=== PATIENT | female | born 1960 | race Caucasian/White ===

== ENCOUNTER 2021-10-08 10:29 | Inpatient (IN) | payer OTHER ==
[2021-10-08 11:06] LABS: Basophils % (A) 1 %; Eosinophils # (A) 0.1 k/uL (0-0.7); Eosinophils % (A) 3 %; HCT 26.9 % (34.0-46.0); HGB 9.7 gm/dL (11.4-16.0); Lymphocytes # (A) 1.9 k/uL (1.0-4.8); Lymphocytes % (A) 50 %; MCH 31.3 pg (25.0-35.0); MCHC 36.1 g/dL (31.0-37.0); MCV 86.6 fL (80.0-100.0); Mean Platelet Volume 7.1; Monocytes # (A) 0.2 k/uL (0-1.0); Monocytes % (A) 6 %; Neutrophils # (A) 1.5 k/uL (1.3-7.7); Neutrophils % (A) 38 %; Platelet Count 208 k/uL (150-450); RDW 12.5 % (11.5-15.5); WBC 3.8 k/uL (3.8-10.6)
--- NOTE | 2021-10-08 11:14 | ED ---
General Adult HPI - General Chief complaint: Nausea/Vomiting/Diarrhea Stated complaint: Nausea/Vomiting Time Seen by Provider: 10/08/21 10:33 Source: patient Mode of arrival: EMS Limitations: no limitations - History of Present Illness Initial comments: Dictation was produced using [employer] dictation software. please excuse any grammatical, word or spelling errors. Chief Complaint: 61-year-old female presents emergency department for nausea and vomiting and abdominal pain. History of Present Illness: Patient reports that her symptoms began yesterday. States that she has pain in her left lower quadrant. States it is nonradiating and severe. Associated with nonbilious nonbloody diarrhea. Denies any recent travel. Patient also feeling nauseated. She has mild rhinorrhea. No cough shortness of breath or respiratory symptoms. Patient has history of hysterectomy. Denies any history of diverticulitis. No complaint of cons titutional symptoms. Shows complains of bilateral lower extremity pain. The ROS documented in this emergency department record has been reviewed and confirmed by me. Those systems with pertinent positive or negative responses have been documented in the HPI. All other systems are other negative and/or noncontributory. PHYSICAL EXAM: General Impression: Alert and oriented x3, not in acute distress HEENT: Normocephalic atraumatic, extra-ocular movements intact, pupils equal and reactive to light bilaterally, mucous membranes moist. Cardiovascular: Heart regular rate and rhythm Chest: Able to complete full sentences, no retractions, no tachypnea Abdomen: abdomen soft, palpatory tenderness in the left lower quadrant, non- distended, no organomegaly Musculoskeletal: Pulses present and equal in all extremities, no peripheral edema Motor: no focal deficits noted Neurological: CN II-XII grossly intact, no focal motor or sensory deficits noted Skin: Intact with no visualized rashes Psych: Normal affect and mood ED course: Patient 61-year-old well-appearing female presents to the emergency department for diarrhea, nausea or quadrant abdominal pain. Vital Signs upon arrival are within acceptable limits. Laboratory evaluation obtained. CBC Bright. Coag panel is negative. Sodium is 128. Elevated renal markers. Urinalysis shows 40 white blood cells. 4 panel PCR is negative. Computed tomography scan abdomen and pelvis shows no acute processes. There is diverticulosis, fecal stasis cholelithiasis. There are no old labs for comparison. Some clear patient has a history of kidney issues. No high-risk features noted. Clinical presentation consistent with viral gastroent eritis. Patient given 1 L of normal saline. EKG interpretation: Ventricular rate 74, sinus rhythm, LA interval 139, Supriya, QTc 431. No LA prolongation, no QTC prolongation, No old EKG for comparison. T-wave inversions in V2 and V3. Overall this EKG is nonspecific. Patient reevaluated bedside. She is having low blood pressure readings. Patient reports that she normally has low blood pressures however not as low as 90 systolic. Patient's likely suffering from some dehydration causing hypotension mildly. Patient is agreeable for admission for IV hydration and medical monitoring. - Related Data Home Medications Medication Instructions Recorded Confirmed Lluvia Root Extract 300 mg PO DAILY 10/08/21 10/08/21 Aspirin EC [Ecotrin Low Dose] 81 mg PO DAILY 10/08/21 10/08/21 Atorvastatin [Lipitor] 40 mg PO DAILY 10/08/21 10/08/21 Ergocalciferol (Vitamin D2) 1,250 mcg PO TU 10/08/21 10/08/21 [Drisdol (50,000 Iu)] Levothyroxine Sodium [Synthroid] 88 mcg PO DAILY 10/08/21 10/08/21 Melatonin 10 mg PO HS 10/08/21 10/08/21 Omeprazole 20 mg PO DAILY 10/08/21 10/08/21 Allergies Allergy/AdvReac Type Severity Reaction Status Date / Time bee venom protein (honey bee) Allergy Unknown Verified 10/08/21 14:28 diphenhydramine Allergy Unknown Verified 10/08/21 14:28 [From Benadryl] orange Allergy Unknown Verified 10/08/21 14:28 Sulfa (Sulfonamide Allergy Unknown Verified 10/08/21 14:28 Antibiotics) Review of Systems ROS Statement: Those systems with pertinent positive or pertinent negative responses have been documented in the HPI. ROS Other: All systems not noted in ROS Statement are negative. Past Medical History Past Medical History: Diabetes Mellitus, GERD/Reflux, Hyperlipidemia, Thyroid Disorder History of Any Multi-Drug Resistant Organisms: None Reported Past Surgical History: Hysterectomy Past Psychological History: No Psychological Hx Reported Smoking Status: Former smoker Past Alcohol Use History: None Reported Past Drug Use History: None Reported General Exam Limitations: no limitations Course Vital Signs 02/26/22 02/26/22 10:34 14:00 Temperature 97.8 F 97.1 F L Pulse Rate 74 90 Respiratory 16 16 Rate Blood Pressure 115/65 90/53 O2 Sat by Pulse 100 99 Oximetry Medical Decision Making - Lab Data Result diagrams: 10/08/21 10:54 10/08/21 10:54 Lab Results 10/08/21 10/08/21 10/08/21 Range/Units 10:54 10:54 10:54 WBC 3.8 (3.8-10.6) k/uL RBC 3.10 L (3.80-5.40) m/uL Hgb 9.7 L (11.4-16.0) gm/dL Hct 26.9 L (34.0-46.0) % MCV 86.6 (80.0-100.0) fL MCH 31.3 (25.0-35.0) pg MCHC 36.1 (31.0-37.0) g/dL RDW 12.5 (11.5-15.5) % Plt Count 208 (150-450) k/uL MPV 7.1 Neutrophils % 38 % Lymphocytes % 50 % Monocytes % 6 % Eosinophils % 3 % Basophils % 1 % Neutrophils # 1.5 (1.3-7.7) k/uL Lymphocytes # 1.9 (1.0-4.8) k/uL Monocytes # 0.2 (0-1.0) k/uL Eosinophils # 0.1 (0-0.7) k/uL Basophils # 0.0 (0-0.2) k/uL PT 11.3 (9.0-12.0) sec INR 1.0 (<1.2) APTT 27.1 (22.0-30.0) sec Sodium 128 L (137-145) mmol/L Potassium 5.2 H (3.5-5.1) mmol/L Chloride 102 (98-107) mmol/L Carbon Dioxide 22 (22-30) mmol/L Anion Gap 4 mmol/L BUN 40 H (7-17) mg/dL Creatinine 1.97 H (0.52-1.04) mg/dL Est GFR (CKD-EPI)AfAm 31 (>60 ml/min/1.73 sqM) Est GFR (CKD-EPI)NonAf 27 (>60 ml/min/1.73 sqM) Glucose 87 (74-99) mg/dL Calcium 9.6 (8.4-10.2) mg/dL Total Bilirubin 0.5 (0.2-1.3) mg/dL AST 21 (14-36) U/L ALT 8 (4-34) U/L Alkaline Phosphatase 53 (38-126) U/L Total Protein 6.3 (6.3-8.2) g/dL Albumin 3.6 (3.5-5.0) g/dL Lipase 123 (23-300) U/L Urine Color Urine Appearance (Clear) Urine pH (5.0-8.0) Ur Specific [place] (1.001-1.035) Urine Protein (Negative) Urine Glucose (UA) (Negative) Urine Ketones (Negative) Urine Blood (Negative) Urine Nitrite (Negative) Urine Bilirubin (Negative) Urine Urobilinogen (<2.0) mg/dL Ur Leukocyte Esterase (Negative) Urine RBC (0-5) /hpf Urine WBC (0-5) /hpf Ur Squamous Epith Cells (0-4) /hpf Urine Bacteria (None) /hpf Hyaline Casts (0-2) /lpf Urine Mucus (None) /hpf Influenza Type A (PCR) (Not Detectd) Influenza Type B (PCR) (Not Detectd) RSV (PCR) (Not Detectd) SARS-CoV-2 (PCR) (Not Detectd) 10/08/21 10/08/21 Range/Units 11:19 11:19 WBC (3.8-10.6) k/uL RBC (3.80-5.40) m/uL Hgb (11.4-16.0) gm/dL Hct (34.0-46.0) % MCV (80.0-100.0) fL MCH (25.0-35.0) pg MCHC (31.0-37.0) g/dL RDW (11.5-15.5) % Plt Count (150-450) k/uL MPV Neutrophils % % Lymphocytes % % Monocytes % % Eosinophils % % Basophils % % Neutrophils # (1.3-7.7) k/uL Lymphocytes # (1.0-4.8) k/uL Monocytes # (0-1.0) k/uL Eosinophils # (0-0.7) k/uL Basophils # (0-0.2) k/uL PT (9.0-12.0) sec INR (<1.2) APTT (22.0-30.0) sec Sodium (137-145) mmol/L Potassium (3.5-5.1) mmol/L Chloride (98-107) mmol/L Carbon Dioxide (22-30) mmol/L Anion Gap mmol/L BUN (7-17) mg/dL Creatinine (0.52-1.04) mg/dL Est GFR (CKD-EPI)AfAm (>60 ml/min/1.73 sqM) Est GFR (CKD-EPI)NonAf (>60 ml/min/1.73 sqM) Glucose (74-99) mg/dL Calcium (8.4-10.2) mg/dL Total Bilirubin (0.2-1.3) mg/dL AST (14-36) U/L ALT (4-34) U/L Alkaline Phosphatase (38-126) U/L Total Protein (6.3-8.2) g/dL Albumin (3.5-5.0) g/dL Lipase (23-300) U/L Urine Color Yellow Urine Appearance Clear (Clear) Urine pH 5.0 (5.0-8.0) Ur Specific [place] 1.011 (1.001-1.035) Urine Protein Negative (Negative) Urine Glucose (UA) Negative (Negative) Urine Ketones Negative (Negative) Urine Blood Negative (Negative) Urine Nitrite Negative (Negative) Urine Bilirubin Negative (Negative) Urine Urobilinogen <2.0 (<2.0) mg/dL Ur Leukocyte Esterase Large H (Negative) Urine RBC 3 (0-5) /hpf Urine WBC 14 H (0-5) /hpf Ur Squamous Epith Cells <1 (0-4) /hpf Urine Bacteria Occasional H (None) /hpf Hyaline Casts 19 H (0-2) /lpf Urine Mucus Rare H (None) /hpf Influenza Type A (PCR) Not Detected (Not Detectd) Influenza Type B (PCR) Not Detected (Not Detectd) RSV (PCR) Not Detected (Not Detectd) SARS-CoV-2 (PCR) Not Detected (Not Detectd) Disposition Clinical Impression: Dehydration, Hyponatremia Disposition: ADMITTED IP TO THIS HOSP Condition: Fair Referrals: Arvin Ashley MD [Primary Care Provider] - 1-2 days
[2021-10-08 11:19] LABS: Partial Thromboplastin Time 27.1 sec (22.0-30.0); Prothrombin Time 11.3 sec (9.0-12.0)
[2021-10-08 11:20] LABS: Albumin 3.6 g/dL (3.5-5.0); Calcium 9.6 mg/dL (8.4-10.2); Potassium 5.2 mmol/L (3.5-5.1); Total Bilirubin 0.5 mg/dL (0.2-1.3); Total Protein 6.3 g/dL (6.3-8.2)
[2021-10-08] MEDS ORDERED: SODIUM CHLORIDE 0.9% 1,000 ML IV STA (11:24)
[2021-10-08 12:12] LABS: Appearance,Urine Clear (Clear); Bacteria,Urine Occasional /hpf; Bilirubin,Urine Negative (Negative); Blood,Urine Negative (Negative); Color,Urine Yellow; Glucose,Urine (UA) Negative (Negative); Hyaline Casts,Urine 19 /lpf (0-2); Ketones,Urine Negative (Negative); Leukocyte Esterase,Urine Large (Negative); Mucus,Urine Rare /hpf; Nitrite,Urine Negative (Negative); Protein,Urine Negative (Negative); RBC,Urine 3 /hpf (0-5); Specific Gravity,Urine 1.011 (1.001-1.035); Squamous Epithelial Cell,Urine <1 /hpf (0-4); Urobilinogen,Urine <2.0 mg/dL (<2.0); WBC,Urine 14 /hpf (0-5)
[2021-10-08 12:29] LABS: Influenza A Not Detected (Not Detectd); Influenza B Not Detected (Not Detectd)
--- NOTE | 2021-10-08 14:06 | CT ---
EXAMINATION TYPE: CT abdomen pelvis wo con DATE OF EXAM: 10/08/2021 COMPARISON: None HISTORY: LLQ abdominal pain CT DLP: 435.1 mGycm Automated exposure control for dose reduction was used. TECHNIQUE: Helical acquisition of images from the lung bases through the pelvis. FINDINGS: Lack of intravenous contrast could compromise sensitivity of the exam. LUNG BASES: No significant abnormality is appreciated. AORTA: Atheromatous changes are present. LIVER/GB: There are dependent stones within the gallbladder. Liver shows a low-attenuation focus whic h statistically is likely to represent cyst but are indeterminate. PANCREAS: No significant abnormality is seen. SPLEEN: No significant abnormality is seen. ADRENALS: No significant abnormality is seen. KIDNEYS: No significant abnormality is seen. REPRODUCTIVE ORGANS: Not seen URINARY BLADDER: No significant abnormality is seen. BOWEL: No significant abnormality is seen. No evident appendicitis. Some scattered diverticular ricketts ges are present. Retained fecal debris present throughout the distribution of the colon FREE AIR: No Free Air is visible. ASCITES: None visible. PELVIC ADENOPATHY: None visualized. RETROPERITONEAL ADENOPATHY: No Retroperitoneal Adenopathy visible. OSSEOUS STRUCTURES: Degenerative disc disease and facet arthropathy noted especially in the lower jenaro mbar spine IMPRESSION: DIVERTICULOSIS. NONCONTRAST EXAM. CORRELATE FOR FECAL STASIS. CHOLELITHIASIS AND FINDINGS IN THE LIVE R DESCRIBED.
[2021-10-08] MEDS ORDERED: NALOXONE 0.4 MG/ML 1 ML VIAL IV PRN (14:54)
[2021-10-08] MEDS ORDERED: cefTRIAXone IN SWFI 1,000 MG/10 ML SYRINGE IVP STA (14:57)
[2021-10-08] MEDS: SODIUM CHLORIDE 0.9% 1,000 ML IV SCH (15:25)
[2021-10-08] MEDS ORDERED: CALCIUM CARBONATE 500 MG CHEWABLE PO PRN (16:36)
[2021-10-08] MEDS ORDERED: LACTULOSE 20 GM/30 ML CUP PO PRN (16:36)
[2021-10-08 16:42] LABS: Glucose,Whole Blood 100 mg/dL (75-99)
--- NOTE | 2021-10-08 17:21 | P.HPIM ---
History of Present Illness H&P Date: 10/08/21 Chief Complaint: Tired This is a pleasant 61-year-old patient, follows with Dr. Ashley. Chronic stable medical conditions include diabetes, GERD, hypertension dyslipidemia, hypothyroid, diet-controlled diabetes. Patient for 2 days having decreased oral intake. Some nausea vomiting. Chills. Some left lower quadrant pain. No change in the urine pattern. Feeling rather weak tired rundown. No chest pain or shortness of breath. Sometimes feeling food getting stuck in the throat. Labs were abnormal in the ER including sodium BUN/creatinine potassium. Review of systems: GEN.: Weak diet decrease appetite EYES: None HEENT: None NECK: None RESPIRATORY: None CARDIOVASCULAR: None GASTROINTESTINAL: As above GENITOURINARY: None MUSCULOSKELETAL: Some joint pains] LYMPHATICS: None HEMATOLOGICAL: None PSYCHIATRY: None NEUROLOGICAL: None Past medical history to include: Diabetes, GERD, hyperlipidemia, hypothyroid, Social history: Physical . Did smoke in the past. No alcohol. Family history: Diabetes and hypertension Physical examination: VITAL SIGNS: 97.7, 84, 84/54, 99% room air GENERAL: BMI 22.7, laying in bed tired to wake. EYES: Pupils equal. Conjunctiva normal. HEENT: External appearance of nose and ears normal, oral cavity grossly normal. NECK: JVD not raised; masses not palpable. HEART: First and second heart sounds are normal; no edema. LUNGS: Respiratory rate normal; clear to auscultation. ABDOMEN: Soft, nontender, liver spleen not palpable, no masses palpable. PSYCH: Alert and oriented x3; mood and affect normal. MUSCULOSKELETAL:No Clubbing/cyanosis;muscles-grossly intact. Evidence of OA NEUROLOGICAL: Cranial nerves grossly intact; no facial asymmetry, power and sensation grossly intact. LYMPHATICS: No lymph nodes palpable in the axilla and neck INVESTIGATIONS, reviewed in the clinical context: White count 3.8 hemoglobin 9.7 platelets 208 sodium 128 potassium 5.2 BUN 40 creatinine 1.97 UA: Positive for leukoesterase, WBC, bacteria Influenza type A, type B, RSV, COVID-19: Not detected EKG tracing personally reviewed by me-sinus rhythm, nonspecific T-wave changes Computed tomography scan of the abdomen: Dependent stones in the gallbladder. Possible cyst in the liver.. Scattered diabetic changes. Fecal retention. Assessment and plan: -Acute UTI with cystitis IV ceftriaxone -Sensation of food getting throat and throat/food pipe. Barium swallow -Chronic idiopathic insomnia Melatonin 10 mg daily at bedtime -Hyperlipidemia Lipitor 40 mg daily -Hypothyroid Synthroid 88 g daily. Check TSH -GERD PPI -Clinically with severe dehydration IV fluids -Acute kidney injury, suspect prerenal Follow labs -Hyperkalemia secondary to acute kidney injury Follow labs -Hyponatremia, hypoosmolar Normal saline Home medications resumed. IV fluids.. Diet. Barium swallow. IV ceftriaxone. Care was discussed with the patient's questions answered. Past Medical History Past Medical History: Diabetes Mellitus, GERD/Reflux, Hyperlipidemia, Thyroid Disorder Additional Past Medical History / Comment(s): diet controlled diabetes, hypo thyroid, food feeling "stuck" in throat History of Any Multi-Drug Resistant Organisms: None Reported Past Surgical History: Hysterectomy Past Psychological History: No Psychological Hx Reported Smoking Status: Former smoker Past Alcohol Use History: None Reported Past Drug Use History: None Reported - Past Family History Mother Family Medical History: Diabetes Mellitus, Hypertension Father Family Medical History: Diabetes Mellitus, Hypertension Medications and Allergies Home Medications Medication Instructions Recorded Confirmed Type Lluvia Root Extract 300 mg PO DAILY 10/08/21 10/08/21 History Aspirin EC [Ecotrin Low Dose] 81 mg PO DAILY 10/08/21 10/08/21 History Atorvastatin [Lipitor] 40 mg PO DAILY 10/08/21 10/08/21 History Ergocalciferol (Vitamin D2) 1,250 mcg PO TU 10/08/21 10/08/21 History [Drisdol (50,000 Iu)] Levothyroxine Sodium [Synthroid] 88 mcg PO DAILY 10/08/21 10/08/21 History Melatonin 10 mg PO HS 10/08/21 10/08/21 History Omeprazole 20 mg PO DAILY 10/08/21 10/08/21 History Allergies Allergy/AdvReac Type Severity Reaction Status Date / Time bee venom protein (honey bee) Allergy Unknown Verified 10/08/21 14:28 diphenhydramine Allergy Unknown Verified 10/08/21 14:28 [From Benadryl] orange Allergy Unknown Verified 10/08/21 14:28 Sulfa (Sulfonamide Allergy Unknown Verified 10/08/21 14:28 Antibiotics) Physical Exam Vitals: Vital Signs Temp Pulse Pulse Resp BP BP Pulse Ox 10/08/21 16:11 97.7 F 84 94/54 99 10/08/21 14:00 97.1 F L 90 16 90/53 99 10/08/21 10:34 97.8 F 74 16 115/65 100 Intake and Output 10/08/21 10/08/21 10/08/21 06:59 14:59 22:59 Other: Weight 59.874 kg 59.874 kg Results CBC & Chem 7: 10/08/21 10:54 10/08/21 10:54 Labs: Abnormal Lab Results - Last 24 Hours (Table) 10/08/21 10/08/21 10/08/21 Range/Units 10:54 10:54 11:19 RBC 3.10 L (3.80-5.40) m/uL Hgb 9.7 L (11.4-16.0) gm/dL Hct 26.9 L (34.0-46.0) % Sodium 128 L (137-145) mmol/L Potassium 5.2 H (3.5-5.1) mmol/L BUN 40 H (7-17) mg/dL Creatinine 1.97 H (0.52-1.04) mg/dL POC Glucose (mg/dL) (75-99) mg/dL Ur Leukocyte Esterase Large H (Negative) Urine WBC 14 H (0-5) /hpf Urine Bacteria Occasional H (None) /hpf Hyaline Casts 19 H (0-2) /lpf Urine Mucus Rare H (None) /hpf 10/08/21 Range/Units 16:41 RBC (3.80-5.40) m/uL Hgb (11.4-16.0) gm/dL Hct (34.0-46.0) % Sodium (137-145) mmol/L Potassium (3.5-5.1) mmol/L BUN (7-17) mg/dL Creatinine (0.52-1.04) mg/dL POC Glucose (mg/dL) 100 H (75-99) mg/dL Ur Leukocyte Esterase (Negative) Urine WBC (0-5) /hpf Urine Bacteria (None) /hpf Hyaline Casts (0-2) /lpf Urine Mucus (None) /hpf Thrombosis Risk Factor Assmnt - Choose All That Apply Any of the Below Risk Factors Present?: Yes Other Risk Factors: Yes Each Risk Factor Represents 2 Points: Age 61-74 years Other congenital or acquired thrombophilia - If yes, enter type in comment: Yes Thrombosis Risk Factor Assessment Total Risk Factor Score: 2 Thrombosis Risk Factor Assessment Level: Low Risk
[2021-10-08] MEDS: INSULIN ASPART (NovoLOG) 100 UNIT/ML VIAL SQ SCH ×2 (18:33→21:31)
[2021-10-08] MEDS: ENOXAPARIN 40 MG/0.4 ML SYRINGE SQ SCH (19:47)
[2021-10-08] MEDS: PANTOPRAZOLE 40 MG TABLET PO SCH (19:47)
[2021-10-08 20:31] LABS: Glucose,Whole Blood 101 mg/dL (75-99)
[2021-10-08] MEDS ORDERED: GABAPENTIN 100 MG CAP PO SCH (21:30)
[2021-10-08] MEDS: MELATONIN 5 MG TABLET PO SCH (21:32)
[2021-10-09] MEDS: ACETAMINOPHEN TAB 325 MG TAB PO PRN (02:53)
[2021-10-09] MEDS ORDERED: traMADol 50 MG TAB PO STA (04:18)
[2021-10-09 04:56] LABS: African American GFR (CKD) 41 (>60 ml/min/1.73 sqM); Anion Gap 5 mmol/L; Blood Urea Nitrogen 28 mg/dL (7-17); Calcium 9.2 mg/dL (8.4-10.2); Carbon Dioxide 19 mmol/L (22-30); Chloride 110 mmol/L (98-107); Glucose 90 mg/dL (74-99); Non-African American GFR(CKD) 35 (>60 ml/min/1.73 sqM); Potassium 5.1 mmol/L (3.5-5.1); Sodium 134 mmol/L (137-145)
[2021-10-09] MEDS: LEVOTHYROXINE 88 MCG TAB PO SCH (05:15)
[2021-10-09 06:45] LABS: Glucose,Whole Blood 84 mg/dL (75-99)
[2021-10-09] MEDS: INSULIN ASPART (NovoLOG) 100 UNIT/ML VIAL SQ SCH ×4 (08:58→21:31)
[2021-10-09] MEDS: ASPIRIN 81 MG PO SCH (09:26)
[2021-10-09] MEDS: ENOXAPARIN 40 MG/0.4 ML SYRINGE SQ SCH (09:26)
[2021-10-09] MEDS: PANTOPRAZOLE 40 MG TABLET PO SCH (09:26)
[2021-10-09] MEDS: SODIUM CHLORIDE 0.9% 1,000 ML IV SCH ×4 (09:28→23:19)
[2021-10-09 11:31] LABS: Glucose,Whole Blood 101 mg/dL (75-99)
[2021-10-09] MEDS: ONDANSETRON 4 MG/2 ML VIAL IVP PRN ×2 (13:00→19:06)
[2021-10-09] MEDS: traMADol 50 MG TAB PO PRN ×2 (14:35→21:31)
[2021-10-09] MEDS ORDERED: traMADol 50 MG TAB PO SCH (16:00)
[2021-10-09 16:28] LABS: Glucose,Whole Blood 144 mg/dL (75-99)
--- NOTE | 2021-10-09 16:29 | XR ---
EXAMINATION TYPE: XR knee complete RT DATE OF EXAM: 10/09/2021 COMPARISON: NONE HISTORY: Pain TECHNIQUE: 3 views FINDINGS: There is no sign of fracture nor dislocation. Joint spaces are fairly normal. There is spur ring on the superior patella. There is no sign of a joint effusion. IMPRESSION: Mild spurring of the patella. No fracture seen.
--- NOTE | 2021-10-09 16:30 | XR ---
EXAMINATION TYPE: XR Hip Complete RT DATE OF EXAM: 10/09/2021 COMPARISON: NONE HISTORY: Pain TECHNIQUE: 2 views FINDINGS: There is no evidence of fracture nor dislocation. Hip joint space is fairly normal. Sacroil iac joint is intact. IMPRESSION: Negative right hip exam. No fracture.
[2021-10-09] MEDS: DICLOFENAC SODIUM GEL 100 GM TUBE TOPICAL SCH ×3 (16:31→21:32)
--- NOTE | 2021-10-09 18:19 | P.PN ---
Progress Note - Text Progress Note Date: 10/09/21 Chief Complaint: Tired This is a pleasant 61-year-old patient, follows with Dr. Ashley. Chronic stable medical conditions include diabetes, GERD, hypertension dyslipidemia, hypothyroid, diet-controlled diabetes. Patient for 2 days having decreased oral intake. Some nausea vomiting. Chills. Some left lower quadrant pain. No change in the urine pattern. Feeling rather weak tired rundown. No chest pain or shortness of breath. Sometimes feeling food getting stuck in the throat. Labs were abnormal in the ER including sodium BUN/creatinine potassium. Admitted with acute UTI with cystitis. Started on ceftriaxone. October 09: Patient complaining of food coming up possible getting stuck. Barium swallow pending. Also completing a pain in the right hip and right knee. X-rays of the joints ordered. Orthopedics consulted. Active Medications Acetaminophen (Acetaminophen Tab 325 Mg Tab) 650 mg PO Q6HR PRN PRN Reason: Fever and/ or Pain Last Admin: 10/09/21 02:53 Dose: 650 mg Documented by: Aspirin (Aspirin 81 Mg) 81 mg PO DAILY [facility] Last Admin: 10/09/21 09:26 Dose: 81 mg Documented by: Calcium Carbonate/Glycine (Calcium Carbonate 500 Mg Chewable) 1,000 mg PO Q4HR PRN PRN Reason: Dyspepsia Diclofenac Sodium (Diclofenac Sodium Gel 100 Gm Tube) 4 gm TOPICAL QID [facility]; Protocol Last Admin: 10/09/21 16:31 Dose: 4 gm Documented by: Enoxaparin Sodium (Enoxaparin 40 Mg/0.4 Ml Syringe) 40 mg SQ DAILY [facility] Last Admin: 10/09/21 09:26 Dose: 40 mg Documented by: Sodium Chloride (Saline 0.9%) 1,000 mls @ 130 mls/hr IV .Q7H42M [facility] Last Admin: 10/09/21 16:33 Dose: Not Given Documented by: Ceftriaxone Sodium 1 gm/ (Sodium Chloride) 50 mls @ 100 mls/hr IVPB Q24HR [facility]; Protocol Last Admin: 10/09/21 09:26 Dose: 100 mls/hr Documented by: Insulin Aspart (Insulin Aspart (Novolog) 100 Unit/Ml Vial) 0 unit SQ ACHS [facility]; Protocol Last Admin: 10/09/21 17:46 Dose: Not Given Documented by: Lactulose (Lactulose 20 Gm/30 Ml Cup) 20 gm PO DAILY PRN PRN Reason: Constipation Levothyroxine Sodium (Levothyroxine 88 Mcg Tab) 88 mcg PO DAILY@0630 [facility] Last Admin: 10/09/21 05:15 Dose: 88 mcg Documented by: Melatonin (Melatonin 5 Mg Tablet) 10 mg PO HS [facility] Last Admin: 10/08/21 21:32 Dose: 10 mg Documented by: Naloxone HCl (Naloxone 0.4 Mg/Ml 1 Ml Vial) 0.2 mg IV Q2M PRN PRN Reason: Opioid Reversal Ondansetron HCl (Ondansetron 4 Mg/2 Ml Vial) 4 mg IVP Q8HR PRN PRN Reason: Nausea And Vomiting Last Admin: 10/09/21 13:00 Dose: 4 mg Documented by: Pantoprazole Sodium (Pantoprazole 40 Mg Tablet) 40 mg PO [id number]-[id number] [facility] Last Admin: 10/09/21 09:26 Dose: 40 mg Documented by: Tramadol HCl (Tramadol 50 Mg Tab) 50 mg PO TID PRN PRN Reason: Pain Last Admin: 10/09/21 14:35 Dose: 50 mg Documented by: Past medical history to include: Diabetes, GERD, hyperlipidemia, hypothyroid, Social history: Lives with . Did smoke in the past. No alcohol. Family history: Diabetes and hypertension Physical examination: VITAL SIGNS: 97.6, 71, 17, 96/50, 99% room air GENERAL: BMI 22.7, laying in bed . EYES: Pupils equal. Conjunctiva normal. HEENT: External appearance of nose and ears normal, oral cavity grossly normal. NECK: JVD not raised; masses not palpable. HEART: First and second heart sounds are normal; no edema. LUNGS: Respiratory rate normal; clear to auscultation. ABDOMEN: Soft, nontender, liver spleen not palpable, no masses palpable. PSYCH: Alert and oriented x3; mood and affect normal. MUSCULOSKELETAL:No Clubbing/cyanosis;muscles-grossly intact. Evidence of OA especially in the knees NEUROLOGICAL: Cranial nerves grossly intact; no facial asymmetry, power and sensation grossly intact. INVESTIGATIONS, reviewed in the clinical context: October 09: Potassium 5.1 BUN 28 creatinine 1.56 White count 3.8 hemoglobin 9.7 platelets 208 sodium 128 potassium 5.2 BUN 40 creatinine 1.97 UA: Positive for leukoesterase, WBC, bacteria Influenza type A, type B, RSV, COVID-19: Not detected EKG tracing personally reviewed by me-sinus rhythm, nonspecific T-wave changes Computed tomography scan of the abdomen: Dependent stones in the gallbladder. Possible cyst in the liver.. Scattered diabetic changes. Fecal retention. Assessment and plan: -Acute UTI with cystitis IV ceftriaxone -Sensation of food getting throat and throat/food pipe. Barium swallow pending -Chronic idiopathic insomnia Melatonin 10 mg daily at bedtime -Hyperlipidemia Lipitor 40 mg daily -Hypothyroid Synthroid 88 g daily. Check TSH -GERD PPI -Clinically with severe dehydration IV fluids -Acute kidney injury, suspect prerenal: Slow to respond Follow labs -Hyperkalemia secondary to acute kidney injury: Better Follow labs -Hyponatremia, hypoosmolar Normal saline Continue IV fluids.. Diet. Barium swallow. IV ceftriaxone. X-ray of the right hip and knee ordered. Orthopedics consulted. Diclofenac gel ordered for the knee.
[2021-10-09 21:21] LABS: Glucose,Whole Blood 91 mg/dL (75-99)
[2021-10-09] MEDS: MELATONIN 5 MG TABLET PO SCH (21:32)
[2021-10-10] MEDS: ACETAMINOPHEN TAB 325 MG TAB PO PRN ×2 (02:29→15:39)
[2021-10-10] MEDS: LEVOTHYROXINE 88 MCG TAB PO SCH (05:53)
[2021-10-10 06:33] LABS: Potassium 4.6 mmol/L (3.5-5.1)
[2021-10-10 06:34] LABS: African American GFR (CKD) 56 (>60 ml/min/1.73 sqM); Anion Gap 3 mmol/L; Blood Urea Nitrogen 18 mg/dL (7-17); Calcium 8.8 mg/dL (8.4-10.2); Carbon Dioxide 20 mmol/L (22-30); Chloride 111 mmol/L (98-107); Glucose 118 mg/dL (74-99); Non-African American GFR(CKD) 48 (>60 ml/min/1.73 sqM); Sodium 134 mmol/L (137-145)
[2021-10-10 07:15] LABS: Glucose,Whole Blood 112 mg/dL (75-99)
[2021-10-10] MEDS: INSULIN ASPART (NovoLOG) 100 UNIT/ML VIAL SQ SCH ×4 (08:21→21:04)
[2021-10-10] MEDS: ONDANSETRON 4 MG/2 ML VIAL IVP PRN (08:37)
[2021-10-10] MEDS: ENOXAPARIN 40 MG/0.4 ML SYRINGE SQ SCH (08:37)
--- NOTE | 2021-10-10 09:03 | P.CNOR ---
History of Present Illness - [facility] Consult date: 10/10/21 History of present illness: The patient is admitted to and orthopaedics for right hip and knee pain. This morning the patient states that the hip and knee pain is chronic and has been present for months. She has been managed by her PCP and has been in therapy. She complains of pain down both of her legs. She denies groin pain. She says it has not gotten worse lately. Past Medical History Past Medical History: Diabetes Mellitus, GERD/Reflux, Hyperlipidemia, Thyroid Disorder Additional Past Medical History / Comment(s): diet controlled diabetes, hypothyroid, food feeling "stuck" in throat History of Any Multi-Drug Resistant Organisms: None Reported Past Surgical History: Hysterectomy Past Psychological History: No Psychological Hx Reported Smoking Status: Former smoker Past Alcohol Use History: None Reported Past Drug Use History: None Reported - Past Family History Mother Family Medical History: Diabetes Mellitus, Hypertension Father Family Medical History: Diabetes Mellitus, Hypertension Medications and Allergies Home Medications Medication Instructions Recorded Confirmed Type Lluvia Root Extract 300 mg PO DAILY 10/08/21 10/08/21 History Aspirin EC [Ecotrin Low Dose] 81 mg PO DAILY 10/08/21 10/08/21 History Atorvastatin [Lipitor] 40 mg PO DAILY 10/08/21 10/08/21 History Ergocalciferol (Vitamin D2) 1,250 mcg PO TU 10/08/21 10/08/21 History [Drisdol (50,000 Iu)] Levothyroxine Sodium [Synthroid] 88 mcg PO DAILY 10/08/21 10/08/21 History Melatonin 10 mg PO HS 10/08/21 10/08/21 History Omeprazole 20 mg PO DAILY 10/08/21 10/08/21 History Allergies Allergy/AdvReac Type Severity Reaction Status Date / Time bee venom protein (honey bee) Allergy Unknown Verified 10/08/21 14:28 diphenhydramine Allergy Unknown Verified 10/08/21 14:28 [From Benadryl] orange Allergy Unknown Verified 10/08/21 14:28 Sulfa (Sulfonamide Allergy Unknown Verified 10/08/21 14:28 Antibiotics) Physical Examination The patient is sitting up in bed. She is alert and able to answer questions. She demonstrates non-labored breathing with symmetric chest expansion. Her abdomen is non obese. She is sitting in bed with both hips flexed. She has NO PAIN with PROM of both hips. Her thighs are both soft. She has mild tenderness over the anterior aspect of both knees. She has minimal pain with PROM of both knees. Results Xrays of the right hip and right knee show no acute fractures and no degenerative changes. - Labs Labs: Abnormal Lab Results - Last 24 Hours (Table) 10/09/21 10/09/21 10/10/21 Range/Units 11:30 16:26 05:36 Sodium 134 L (137-145) mmol/L Chloride 111 H (98-107) mmol/L Carbon Dioxide 20 L (22-30) mmol/L BUN 18 H (7-17) mg/dL Creatinine 1.20 H (0.52-1.04) mg/dL Glucose 118 H (74-99) mg/dL POC Glucose (mg/dL) 101 H 144 H (75-99) mg/dL 10/10/21 Range/Units 07:14 Sodium (137-145) mmol/L Chloride (98-107) mmol/L Carbon Dioxide (22-30) mmol/L BUN (7-17) mg/dL Creatinine (0.52-1.04) mg/dL Glucose (74-99) mg/dL POC Glucose (mg/dL) 112 H (75-99) mg/dL H & H 10/08/21 Range/Units 10:54 Hgb 9.7 L (11.4-16.0) gm/dL Hct 26.9 L (34.0-46.0) % Coagulation 10/08/21 Range/Units 10:54 INR 1.0 (<1.2) Result Diagrams: 10/08/21 10:54 10/10/21 05:36 Assessment and Plan Assessment: Bilateral hip, knee and leg pain Plan: I would recommend non-operative treatment as this seems to be a chronic problem, her x-rays are normal and she has a relatively benign exam. I'd suggest therapy and follow-up in the office as an outpatient if she has continued problems. If she continues to have pain in her legs as an inpatient could also consider a spine consultation for evaluation of lumbar spine pathology given her normal xrays and benign hip and knee exam.
[2021-10-10 12:37] LABS: Glucose,Whole Blood 92 mg/dL (75-99)
[2021-10-10] MEDS: ASPIRIN 81 MG PO SCH (13:59)
[2021-10-10] MEDS: PANTOPRAZOLE 40 MG TABLET PO SCH (13:59)
--- NOTE | 2021-10-10 15:21 | FL ---
EXAMINATION TYPE: FL barium swallow DATE OF EXAM: 10/10/2021 COMPARISON: None HISTORY: Food getting stuck in throat swallowing nausea TECHNIQUE: Single contrast technique was utilized to evaluate the esophagus and proximal stomach. FINDINGS: Gastroesophageal junction opens normal caliber. The stomach fills normally with single cont rast. Mild gastric fold hypertrophy may be present. Small self reducing sliding type hiatal hernia is present. Couple of tertiary contractions may be present. Note is made of delayed excretion of contrast through the pyloric channel. Patient had nausea during the examination. Patient condition was weak and positioning was difficult. Fluoroscopy time: 1 minute 21 seconds. Images: 21 IMPRESSION: 1. Presbyesophagus. 2. Small sliding-type hiatal hernia. 3. Delayed excretion through the pyloric channel. Consider pyloric stenosis.
--- NOTE | 2021-10-10 16:29 | P.PN ---
Progress Note - Text Progress Note Date: 10/10/21 Chief Complaint: Tired This is a pleasant 61-year-old patient, follows with Dr. Ashley. Chronic stable medical conditions include diabetes, GERD, hypertension dyslipidemia, hypothyroid, diet-controlled diabetes. Patient for 2 days having decreased oral intake. Some nausea vomiting. Chills. Some left lower quadrant pain. No change in the urine pattern. Feeling rather weak tired rundown. No chest pain or shortness of breath. Sometimes feeling food getting stuck in the throat. Labs were abnormal in the ER including sodium BUN/creatinine potassium. Admitted with acute UTI with cystitis. Started on ceftriaxone. October 09: Patient complaining of food coming up possible getting stuck. Barium swallow pending. Also completing a pain in the right hip and right knee. X-rays of the joints ordered. Orthopedics consulted. 28: Saw the patient earlier today. Was pending barium swallow. Seen by orthopedics. No further intervention currently. Barium swallow: Presbyesophagus, delayed excretion through the pyloric channel. GI consulted Active Medications Acetaminophen (Acetaminophen Tab 325 Mg Tab) 650 mg PO Q6HR PRN PRN Reason: Fever and/ or Pain Last Admin: 10/10/21 15:39 Dose: 650 mg Documented by: Aspirin (Aspirin 81 Mg) 81 mg PO DAILY [facility] Last Admin: 10/10/21 13:59 Dose: Not Given Documented by: Calcium Carbonate/Glycine (Calcium Carbonate 500 Mg Chewable) 1,000 mg PO Q4HR PRN PRN Reason: Dyspepsia Diclofenac Sodium (Diclofenac Sodium Gel 100 Gm Tube) 4 gm TOPICAL QID [facility]; Protocol Last Admin: 10/09/21 21:32 Dose: 4 gm Documented by: Enoxaparin Sodium (Enoxaparin 40 Mg/0.4 Ml Syringe) 40 mg SQ DAILY [facility] Last Admin: 10/10/21 08:37 Dose: 40 mg Documented by: Ceftriaxone Sodium 1 gm/ (Sodium Chloride) 50 mls @ 100 mls/hr IVPB Q24HR [facility]; Protocol Last Admin: 10/10/21 08:37 Dose: 100 mls/hr Documented by: Dextrose/Sodium Chloride (Dextrose 5%-Ns Iv Soln) 1,000 mls @ 100 mls/hr IV .Q10H [facility] Insulin Aspart (Insulin Aspart (Novolog) 100 Unit/Ml Vial) 0 unit SQ ACHS [facility]; Protocol Last Admin: 10/10/21 14:00 Dose: Not Given Documented by: Lactulose (Lactulose 20 Gm/30 Ml Cup) 20 gm PO DAILY PRN PRN Reason: Constipation Levothyroxine Sodium (Levothyroxine 88 Mcg Tab) 88 mcg PO DAILY@0630 [facility] Last Admin: 10/10/21 05:53 Dose: 88 mcg Documented by: Melatonin (Melatonin 5 Mg Tablet) 10 mg PO HS [facility] Last Admin: 10/09/21 21:32 Dose: 10 mg Documented by: Naloxone HCl (Naloxone 0.4 Mg/Ml 1 Ml Vial) 0.2 mg IV Q2M PRN PRN Reason: Opioid Reversal Ondansetron HCl (Ondansetron 4 Mg/2 Ml Vial) 4 mg IVP Q8HR PRN PRN Reason: Nausea And Vomiting Last Admin: 10/10/21 08:37 Dose: 4 mg Documented by: Pantoprazole Sodium (Pantoprazole 40 Mg Tablet) 40 mg PO -BRKFST [facility] Last Admin: 10/10/21 13:59 Dose: Not Given Documented by: Tramadol HCl (Tramadol 50 Mg Tab) 50 mg PO TID PRN PRN Reason: Pain Last Admin: 10/09/21 21:31 Dose: 50 mg Documented by: Past medical history to include: Diabetes, GERD, hyperlipidemia, hypothyroid, Social history: Lives with . Did smoke in the past. No alcohol. Family history: Diabetes and hypertension Physical examination: VITAL SIGNS: 97.7, 81, 16, 101/63, 96% room air GENERAL: Tired awake laying in bed . EYES: Pupils equal. Conjunctiva normal. HEENT: External appearance of nose and ears normal, oral cavity grossly normal. NECK: JVD not raised; masses not palpable. HEART: First and second heart sounds are normal; no edema. LUNGS: Respiratory rate normal; clear to auscultation. ABDOMEN: Soft, nontender, liver spleen not palpable, no masses palpable. PSYCH: Alert and oriented x3; mood and affect normal. MUSCULOSKELETAL:No Clubbing/cyanosis;muscles-grossly intact. Evidence of OA especially in the knees INVESTIGATIONS, reviewed in the clinical context: October 10: Potassium 4.6 BUN 18 creatinine 1.20 bicarb 20 Barium swallow: Presbyesophagus. Question pyloric stenosis October 09: Potassium 5.1 BUN 28 creatinine 1.56 White count 3.8 hemoglobin 9.7 platelets 208 sodium 128 potassium 5.2 BUN 40 creatinine 1.97 UA: Positive for leukoesterase, WBC, bacteria Influenza type A, type B, RSV, COVID-19: Not detected EKG tracing personally reviewed by me-sinus rhythm, nonspecific T-wave changes Computed tomography scan of the abdomen: Dependent stones in the gallbladder. Possible cyst in the liver.. Scattered diabetic changes. Fecal retention. Assessment and plan: -Acute UTI with cystitis IV ceftriaxone -prebyesophagus.. GI consult -Questionable gastric outlet/pyloric stenosis GI consulted -Chronic idiopathic insomnia Melatonin 10 mg daily at bedtime -Hyperlipidemia Lipitor 40 mg daily -Hypothyroid Synthroid 88 g daily. Check TSH -GERD PPI -Clinically with severe dehydration IV fluids -Acute kidney injury, suspect prerenal: Slow to respond Follow labs -Hyperkalemia secondary to acute kidney injury: Better Follow labs -Hyponatremia, hypoosmolar Normal saline Continue IV fluids.. Diet resume. GI consulted. Changed to by mouth Keflex.
[2021-10-10 16:43] LABS: Glucose,Whole Blood 84 mg/dL (75-99)
[2021-10-10] MEDS: DICLOFENAC SODIUM GEL 100 GM TUBE TOPICAL SCH ×4 (16:51→21:04)
[2021-10-10] MEDS: DEXTROSE 5%-0.9% NACL 1,000 ML IV SCH ×2 (17:02→20:01)
[2021-10-10] MEDS: MELATONIN 5 MG TABLET PO SCH (19:58)
[2021-10-10] MEDS: traMADol 50 MG TAB PO PRN (19:58)
[2021-10-10] MEDS: SODIUM CHLORIDE 0.9% 1,000 ML IV SCH (20:03)
[2021-10-10 20:11] LABS: Glucose,Whole Blood 87 mg/dL (75-99)
[2021-10-11] MEDS: traMADol 50 MG TAB PO PRN ×2 (04:14→22:21)
[2021-10-11] MEDS: CEPHALEXIN 500 MG CAP PO SCH ×4 (04:14→22:21)
[2021-10-11] MEDS: ONDANSETRON 4 MG/2 ML VIAL IVP PRN ×2 (04:16→12:17)
[2021-10-11] MEDS: INSULIN ASPART (NovoLOG) 100 UNIT/ML VIAL SQ SCH ×4 (07:21→20:35)
[2021-10-11 07:22] LABS: Glucose,Whole Blood 97 mg/dL (75-99)
[2021-10-11] MEDS: DICLOFENAC SODIUM GEL 100 GM TUBE TOPICAL SCH ×4 (07:22→22:25)
[2021-10-11] MEDS: ENOXAPARIN 40 MG/0.4 ML SYRINGE SQ SCH (07:23)
[2021-10-11] MEDS: LEVOTHYROXINE 88 MCG TAB PO SCH (07:28)
[2021-10-11] MEDS: PANTOPRAZOLE 40 MG TABLET PO SCH (07:28)
[2021-10-11] MEDS: ASPIRIN 81 MG PO SCH (07:29)
[2021-10-11] MEDS ORDERED: LACTULOSE 20 GM/30 ML CUP PO ONE (10:26)
[2021-10-11 11:58] LABS: Glucose,Whole Blood 101 mg/dL (75-99)
[2021-10-11] MEDS: DEXTROSE 5%-0.9% NACL 1,000 ML IV SCH ×2 (12:18→17:22)
--- NOTE | 2021-10-11 15:04 | P.CONS ---
History of Present Illness - Reason for Consult Consult date: 10/11/21 Dysphagia Requesting physician: Ky Rivera - Chief Complaint Leg pain - History of Present Illness This is a 61-year-old female who presented to the emergency department with complaints of leg pain, weakness, and difficulty swallowing. Patient states she's had nausea and vomiting 1 month after eating. States she's had a 30 pound weight loss. She has a history of acid reflux, diabetes, hyperlipidemia and thyroid disorder. She underwent a CT of the abdomen and pelvis which showed diverticulosis. Noncontrast exam. Correlate for fecal stasis. Cholelithiasis. Liver shows low-attenuation focus which statistically is likely to represent cysts but are indeterminate. She also underwent a barium swallow that showed presbyesophagus, small sliding type hiatal hernia and delayed excretion through the pyloric channel, consider pyloric stenosis. Patient states every time she eats it feels like something gets stuck and she vomits it up. She says it's only with solids. She states she is able to take down liquids without any difficulty. She denies any hematemesis. No history of previous EGD. No history of peptic ulcer disease. Review of Systems REVIEW OF SYSTEMS: CARDIOPULMONARY: No chest pain or shortness of breath. Gastrointestinal: No abdominal pain. Difficulty with swallowing, unable to swallow solid foods. Vomiting after eating solid foods. Able to tolerate clear liquid. No hematemesis or coffee-ground emesis. No rectal bleeding, or melena. GENITOURINARY: No dysuria or hematuria. MUSCULOSKELETAL: Reports normal range of motion., Joint pain. SKIN: No rashes. No jaundice. ENDOCRINE: No chills, fevers. No excessive weight gain or loss. No polydipsia or polyuria. PSYCHIATRIC: Unremarkable. NEUROLOGY: No change in mental status. Denies dizziness, headache. ENT: Vision unremarkable. CONSTITUTIONAL: Reported 30 pound weight loss over the last 1 month duration. fever, chills, night sweats. Past Medical History Past Medical History: Diabetes Mellitus, GERD/Reflux, Hyperlipidemia, Thyroid Disorder Additional Past Medical History / Comment(s): diet controlled diabetes, hypothyroid, food feeling "stuck" in throat History of Any Multi-Drug Resistant Organisms: None Reported Past Surgical History: Hysterectomy Past Psychological History: No Psychological Hx Reported Smoking Status: Former smoker Past Alcohol Use History: None Reported Past Drug Use History: None Reported - Past Family History Mother Family Medical History: Diabetes Mellitus, Hypertension Father Family Medical History: Diabetes Mellitus, Hypertension Medications and Allergies Home Medications Medication Instructions Recorded Confirmed Type Lluvia Root Extract 300 mg PO DAILY 10/08/21 10/08/21 History Aspirin EC [Ecotrin Low Dose] 81 mg PO DAILY 10/08/21 10/08/21 History Atorvastatin [Lipitor] 40 mg PO DAILY 10/08/21 10/08/21 History Ergocalciferol (Vitamin D2) 1,250 mcg PO TU 10/08/21 10/08/21 History [Drisdol (50,000 Iu)] Levothyroxine Sodium [Synthroid] 88 mcg PO DAILY 10/08/21 10/08/21 History Melatonin 10 mg PO HS 10/08/21 10/08/21 History Omeprazole 20 mg PO DAILY 10/08/21 10/08/21 History Allergies Allergy/AdvReac Type Severity Reaction Status Date / Time bee venom protein (honey bee) Allergy Unknown Verified 10/08/21 14:28 diphenhydramine Allergy Unknown Verified 10/08/21 14:28 [From Benadryl] orange Allergy Unknown Verified 10/08/21 14:28 Sulfa (Sulfonamide Allergy Unknown Verified 10/08/21 14:28 Antibiotics) Physical Exam Vitals: Vital Signs Temp Pulse Resp BP Pulse Ox 10/11/21 08:00 99.0 F 85 14 107/64 91 L 10/11/21 02:00 97.6 F 104 H 19 133/73 93 L 10/10/21 20:00 97.8 F 83 18 105/66 97 10/10/21 14:00 97.7 F 81 16 101/63 96 Intake and Output 10/10/21 10/11/21 10/11/21 22:59 06:59 14:59 Intake Total 650 Balance 650 Intake: Intake, IV Titration 650 Amount Dextrose 5%-0.9% NaCl 1, 600 000 ml @ 100 mls/hr IV . Q10H [facility] Rx#:[id number] cefTRIAXone 1 gm In 50 Sodium Chloride 0.9% 50 ml @ 100 mls/hr IVPB Q24HR [facility] Rx#:[id number] Other: # Voids 2 General appearance: The patient is alert, oriented, appears in no acute distress. HET: Head is normocephalic and atraumatic. Conjunctiva pink. Sclera anicteric. Neck: Supple without lymphadenopathy. Trachea midline. Heart: S1 S2. Regular rate and rhythm. Lungs: Clear to auscultation. Abdomen: Soft, nontender, nondistended with bowel sounds. No guarding or rigidity. Skin: No rashes. No jaundice. Extremities: Normal skin color and turgor. No pedal edema. Neurological: No focal deficits. Alert and oriented x3. Results CBC & Chem 7: 10/08/21 10:54 10/10/21 05:36 Comments: CT of the abdomen and pelvis which showed diverticulosis. Noncontrast exam. Correlate for fecal stasis. Cholelithiasis. Liver shows low-attenuation focus which statistically is likely to represent cysts but are indeterminate. barium swallow that showed presbyesophagus, small sliding type hiatal hernia and delayed excretion through the pyloric channel, consider pyloric stenosis. Assessment and Plan (1) Dysphagia Narrative/Plan: 61-year-old female who presented to the emergency department with complaints of weakness, lower extremity pain as well as difficulty with swallowing. States for last 1 month's duration she's been having difficulty swallowing solids. She is able to tolerate clear liquids. She does have a history of GERD, taking omeprazole. No previous history of peptic ulcer disease. She had a CT of the abdomen and pelvis that was unremarkable. She had a barium swallow that showed presbyesophagus and possible pyloric stenosis. As well as a small sliding hiatal hernia. Patient states when she solids she vomits it right back up. Feels like it goes down and then gets stuck in the center of her chest. She is able to hold liquids. Denies any hematemesis or coffee-ground emesis. No previous EGD. No history of peptic ulcer disease. Denies any NSAID use. We'll proceed with upper endoscopy tomorrow Current Visit: Yes Status: Acute Code(s): R13.10 - DYSPHAGIA, UNSPECIFIED SNOMED Code(s): 69788432 Plan: 1. Continue symptomatic and supportive care 2. Protonix 40 mg daily 3. Hold Lovenox in the morning 4. Dysphagia pured diet, nothing by mouth after midnight 5. Will proceed with EGD tomorrow. Procedure discussed with patient including risks and benefits, patient is willing to proceed. Thank you for this consultation, we will continue to follow. Dr. Fede Ortiz I agree with the dictator's note, documented as a scribe by Brandy Adair.
[2021-10-11 16:47] LABS: Glucose,Whole Blood 88 mg/dL (75-99)
[2021-10-11 20:35] LABS: Glucose,Whole Blood 114 mg/dL (75-99)
[2021-10-11] MEDS: MELATONIN 5 MG TABLET PO SCH (22:21)
--- NOTE | 2021-10-11 23:20 | P.PN ---
Progress Note - Text Progress Note Date: 10/11/21 Chief Complaint: Tired This is a pleasant 61-year-old patient, follows with Dr. Ashley. Chronic stable medical conditions include diabetes, GERD, hypertension dyslipidemia, hypothyroid, diet-controlled diabetes. Patient for 2 days having decreased oral intake. Some nausea vomiting. Chills. Some left lower quadrant pain. No change in the urine pattern. Feeling rather weak tired rundown. No chest pain or shortness of breath. Sometimes feeling food getting stuck in the throat. Labs were abnormal in the ER including sodium BUN/creatinine potassium. Admitted with acute UTI with cystitis. Started on ceftriaxone. October 09: Patient complaining of food coming up possible getting stuck. Barium swallow pending. Also completing a pain in the right hip and right knee. X-rays of the joints ordered. Orthopedics consulted. October 10: Saw the patient earlier today. Was pending barium swallow. Seen by orthopedics. No further intervention currently. Barium swallow: Presbyesophagus, delayed excretion through the pyloric channel. GI consulted October 11: Patient barely able to eat. Seen by GI earlier today. For EGD tomorrow. Discussed with patient. Active Medications Acetaminophen (Acetaminophen Tab 325 Mg Tab) 650 mg PO Q6HR PRN PRN Reason: Fever and/ or Pain Last Admin: 10/10/21 15:39 Dose: 650 mg Documented by: Aspirin (Aspirin 81 Mg) 81 mg PO DAILY [facility] Last Admin: 10/11/21 07:29 Dose: Not Given Documented by: Calcium Carbonate/Glycine (Calcium Carbonate 500 Mg Chewable) 1,000 mg PO Q4HR PRN PRN Reason: Dyspepsia Cephalexin (Cephalexin 500 Mg Cap) 500 mg PO QID [facility]; Protocol Last Admin: 10/11/21 22:21 Dose: 500 mg Documented by: Diclofenac Sodium (Diclofenac Sodium Gel 100 Gm Tube) 4 gm TOPICAL QID [facility]; Protocol Last Admin: 10/11/21 22:25 Dose: 4 gm Documented by: Enoxaparin Sodium (Enoxaparin 40 Mg/0.4 Ml Syringe) 40 mg SQ DAILY [facility] Last Admin: 10/11/21 07:23 Dose: 40 mg Documented by: Dextrose/Sodium Chloride (Dextrose 5%-Ns Iv Soln) 1,000 mls @ 100 mls/hr IV .Q10H [facility] Last Admin: 10/11/21 17:22 Dose: Not Given Documented by: Insulin Aspart (Insulin Aspart (Novolog) 100 Unit/Ml Vial) 0 unit SQ [facility]; Protocol Last Admin: 10/11/21 20:35 Dose: Not Given Documented by: Lactulose (Lactulose 20 Gm/30 Ml Cup) 20 gm PO DAILY PRN PRN Reason: Constipation Levothyroxine Sodium (Levothyroxine 88 Mcg Tab) 88 mcg PO DAILY@0630 [facility] Last Admin: 10/11/21 07:28 Dose: Not Given Documented by: Melatonin (Melatonin 5 Mg Tablet) 10 mg PO HS [facility] Last Admin: 10/11/21 22:21 Dose: 10 mg Documented by: Naloxone HCl (Naloxone 0.4 Mg/Ml 1 Ml Vial) 0.2 mg IV Q2M PRN PRN Reason: Opioid Reversal Ondansetron HCl (Ondansetron 4 Mg/2 Ml Vial) 4 mg IVP Q8HR PRN PRN Reason: Nausea And Vomiting Last Admin: 10/11/21 12:17 Dose: 4 mg Documented by: Pantoprazole Sodium (Pantoprazole 40 Mg Tablet) 40 mg PO AC-BRKFST [facility] Last Admin: 10/11/21 07:28 Dose: Not Given Documented by: Polyethylene Glycol (Polyethylene Glycol 3350 17 Gm Powd.Pack) 17 gm PO DAILY [facility] Tramadol HCl (Tramadol 50 Mg Tab) 50 mg PO TID PRN PRN Reason: Pain Last Admin: 10/11/21 22:21 Dose: 50 mg Documented by: Past medical history to include: Diabetes, GERD, hyperlipidemia, hypothyroid, Social history: Lives with . Did smoke in the past. No alcohol. Family history: Diabetes and hypertension Physical examination: VITAL SIGNS: 98.7, 83, 17, 92/58, 91% room air GENERAL: Tired awake laying in bed . EYES: Pupils equal. Conjunctiva normal. HEENT: External appearance of nose and ears normal, oral cavity grossly normal. NECK: JVD not raised; masses not palpable. HEART: First and second heart sounds are normal; no edema. LUNGS: Respiratory rate normal; clear to auscultation. ABDOMEN: Soft, nontender, liver spleen not palpable, no masses palpable. PSYCH: Alert and oriented x3; mood and affect normal. MUSCULOSKELETAL:No Clubbing/cyanosis;muscles-grossly intact. Evidence of OA especially in the knees INVESTIGATIONS, reviewed in the clinical context: October 10: Potassium 4.6 BUN 18 creatinine 1.20 bicarb 20 Barium swallow: Presbyesophagus. Question pyloric stenosis October 09: Potassium 5.1 BUN 28 creatinine 1.56 White count 3.8 hemoglobin 9.7 platelets 208 sodium 128 potassium 5.2 BUN 40 creatinine 1.97 UA: Positive for leukoesterase, WBC, bacteria Influenza type A, type B, RSV, COVID-19: Not detected EKG tracing personally reviewed by me-sinus rhythm, nonspecific T-wave changes Computed tomography scan of the abdomen: Dependent stones in the gallbladder. Possible cyst in the liver.. Scattered diabetic changes. Fecal retention. Assessment and plan: -Acute UTI with cystitis By mouth Keflex -prebyesophagus.. GI consult -Persistent postprandial vomiting: Questionable gastric outlet/pyloric stenosis: Slow to respond GI consulted, for EGD -Chronic idiopathic insomnia Melatonin 10 mg daily at bedtime -Hyperlipidemia Lipitor 40 mg daily -Hypothyroid Synthroid 88 g daily. Check TSH -GERD PPI -Clinically with severe dehydration IV fluids -Acute kidney injury, suspect prerenal: Slow to respond Follow labs -Hyperkalemia secondary to acute kidney injury: Better Follow labs -Hyponatremia, hypoosmolar Normal saline Continue IV fluids.. Patient for EGD tomorrow. Discussed with patient.
[2021-10-12] MEDS: DEXTROSE 5%-0.9% NACL 1,000 ML IV SCH ×3 (02:45→21:00)
[2021-10-12] MEDS: LEVOTHYROXINE 88 MCG TAB PO SCH (06:34)
[2021-10-12 07:05] LABS: Glucose,Whole Blood 110 mg/dL (75-99)
[2021-10-12] MEDS: INSULIN ASPART (NovoLOG) 100 UNIT/ML VIAL SQ SCH ×4 (07:14→22:39)
[2021-10-12] MEDS: ASPIRIN 81 MG PO SCH (08:03)
[2021-10-12] MEDS: CEPHALEXIN 500 MG CAP PO SCH ×4 (08:03→20:49)
[2021-10-12] MEDS: PANTOPRAZOLE 40 MG TABLET PO SCH (08:03)
[2021-10-12] MEDS: polyethylene glycoL 3350 17 GM POWD.PACK PO SCH (08:05)
[2021-10-12] MEDS: ENOXAPARIN 40 MG/0.4 ML SYRINGE SQ SCH (08:05)
[2021-10-12] MEDS: DICLOFENAC SODIUM GEL 100 GM TUBE TOPICAL SCH ×4 (09:01→21:00)
[2021-10-12 11:41] LABS: Glucose,Whole Blood 93 mg/dL (75-99)
[2021-10-12] MEDS ORDERED: PROPOFOL 10 MG/ML 20 ML VIAL IV ONE (12:55)
[2021-10-12] MEDS ORDERED: IV FLUID CONTINUATION 1,000 ML IV ONE ×2 (12:57)
--- NOTE | 2021-10-12 13:10 | P.PCN ---
Date of Procedure: 10/12/21 Procedure(s) Performed: tBRIEF HISTORY: Patient is a 61-year-old, pleasant, white female admitted hospital with weakness dysphagia to solids for the last several months duration. She does complain of occasional nausea vomiting. She lost 30 pounds in the last [address] of abdomen and pelvis was unremarkable. She had a barium esophagogram done yesterday that showed evidence of presbyesophagus and possible pyloric stenosis. She is hence scheduled for an upper endoscopy to evaluate further.. PROCEDURE PERFORMED: Esophagogastroduodenoscopy with biopsy. PREOPERATIVE DIAGNOSIS: Dysphagia/progressive weight loss of 30 pounds. IV sedation per anesthesia. PROCEDURE: After informed consent was obtained, the patient was brought into the endoscopy unit. IV sedation was administered by Anesthesia under continuous monitoring. Initially the Olympus GIF-140 video endoscope was inserted into the mouth. Esophagus intubated without any difficulty. It was gradually advanced into the stomach and duodenum and carefully examined. The bulb and the second part of the duodenum appeared normal. Acetaminophen from the duodenum to rule out celiac disease. The scope at this time was withdrawn to the stomach, adequately insufflated with air, and upon careful examination, mucosa of the antrum, body, cardia and the fundus appeared normal. The pylorus was patent. No evidence of pyloric stenosis. The scope was then withdrawn into the esophagus. Small HH noted. The GE junction was located at 39 cm from the incisors. The esophagus appeared normal. There were no erosions or ulcerations seen , biopsies were done from the distal esophagus and the patient tolerated the procedure well. IMPRESSION: 1. No evidence of pyloric stenosis. 2. Small hiatal hernia but no evidence of esophagitis or esophageal stricture. 3. Duodenitis RECOMMENDATIONS: The findings of this examination were discussed with the patient . Diet will be advanced as tolerated. Continue Protonix 40 mg daily..
--- NOTE | 2021-10-12 15:24 | P.PN ---
Progress Note - Text Progress Note Date: 10/12/21 Chief Complaint: Tired This is a pleasant 61-year-old patient, follows with Dr. Ashley. Chronic stable medical conditions include diabetes, GERD, hypertension dyslipidemia, hypothyroid, diet-controlled diabetes. Patient for 2 days having decreased oral intake. Some nausea vomiting. Chills. Some left lower quadrant pain. No change in the urine pattern. Feeling rather weak tired rundown. No chest pain or shortness of breath. Sometimes feeling food getting stuck in the throat. Labs were abnormal in the ER including sodium BUN/creatinine potassium. Admitted with acute UTI with cystitis. Started on ceftriaxone. October 09: Patient complaining of food coming up possible getting stuck. Barium swallow pending. Also completing a pain in the right hip and right knee. X-rays of the joints ordered. Orthopedics consulted. October 10: Saw the patient earlier today. Was pending barium swallow. Seen by orthopedics. No further intervention currently. Barium swallow: Presbyesophagus, delayed excretion through the pyloric channel. GI consulted October 11: Patient barely able to eat. Seen by GI earlier today. For EGD tomorrow. Discussed with patient. October 12: Saw the patient this morning. Pending EGD. Later EGD showed duodenitis. No pyloric stenosis. Initiate diet. PPI Active Medications Acetaminophen (Acetaminophen Tab 325 Mg Tab) 650 mg PO Q6HR PRN PRN Reason: Fever and/ or Pain Last Admin: 10/10/21 15:39 Dose: 650 mg Documented by: Aspirin (Aspirin 81 Mg) 81 mg PO DAILY [facility] Last Admin: 10/12/21 08:03 Dose: 81 mg Documented by: Calcium Carbonate/Glycine (Calcium Carbonate 500 Mg Chewable) 1,000 mg PO Q4HR PRN PRN Reason: Dyspepsia Cephalexin (Cephalexin 500 Mg Cap) 500 mg PO QID [facility]; Protocol Last Admin: 10/12/21 13:30 Dose: 500 mg Documented by: Diclofenac Sodium (Diclofenac Sodium Gel 100 Gm Tube) 4 gm TOPICAL QID [facility]; Protocol Last Admin: 10/12/21 13:31 Dose: 4 gm Documented by: Enoxaparin Sodium (Enoxaparin 40 Mg/0.4 Ml Syringe) 40 mg SQ DAILY [facility] Last Admin: 10/12/21 08:05 Dose: Not Given Documented by: Dextrose/Sodium Chloride (Dextrose 5%-Ns Iv Soln) 1,000 mls @ 100 mls/hr IV .Q10H [facility] Last Admin: 10/12/21 09:27 Dose: 100 mls/hr Documented by: Insulin Aspart (Insulin Aspart (Novolog) 100 Unit/Ml Vial) 0 unit SQ ACHS [facility]; Protocol Last Admin: 10/12/21 12:41 Dose: Not Given Documented by: Lactulose (Lactulose 20 Gm/30 Ml Cup) 20 gm PO DAILY PRN PRN Reason: Constipation Levothyroxine Sodium (Levothyroxine 88 Mcg Tab) 88 mcg PO DAILY@0630 [facility] Last Admin: 10/12/21 06:34 Dose: 88 mcg Documented by: Melatonin (Melatonin 5 Mg Tablet) 10 mg PO HS [facility] Last Admin: 10/11/21 22:21 Dose: 10 mg Documented by: Naloxone HCl (Naloxone 0.4 Mg/Ml 1 Ml Vial) 0.2 mg IV Q2M PRN PRN Reason: Opioid Reversal Ondansetron HCl (Ondansetron 4 Mg/2 Ml Vial) 4 mg IVP Q8HR PRN PRN Reason: Nausea And Vomiting Last Admin: 10/11/21 12:17 Dose: 4 mg Documented by: Pantoprazole Sodium (Pantoprazole 40 Mg Tablet) 40 mg PO AC-BRKFST [facility] Last Admin: 10/12/21 08:03 Dose: 40 mg Documented by: Polyethylene Glycol (Polyethylene Glycol 3350 17 Gm Powd.Pack) 17 gm PO DAILY [facility] Last Admin: 10/12/21 08:05 Dose: Not Given Documented by: Tramadol HCl (Tramadol 50 Mg Tab) 50 mg PO TID PRN PRN Reason: Pain Last Admin: 10/11/21 22:21 Dose: 50 mg Documented by: Past medical history to include: Diabetes, GERD, hyperlipidemia, hypothyroid, Social history: Lives with . Did smoke in the past. No alcohol. Family history: Diabetes and hypertension Physical examination: VITAL SIGNS: 98.1, 78, 16, 99/64, 90% room air GENERAL: Tired awake laying in bed . EYES: Pupils equal. Conjunctiva normal. HEENT: External appearance of nose and ears normal, oral cavity grossly normal. NECK: JVD not raised; masses not palpable. HEART: First and second heart sounds are normal; no edema. LUNGS: Respiratory rate normal; clear to auscultation. ABDOMEN: Soft, nontender, liver spleen not palpable, no masses palpable. PSYCH: Alert and oriented x3; mood and affect normal. MUSCULOSKELETAL:No Clubbing/cyanosis;muscles-grossly intact. Evidence of OA especially in the knees INVESTIGATIONS, reviewed in the clinical context: EGD: Duodenitis. No pyloric stenosis October 10: Potassium 4.6 BUN 18 creatinine 1.20 bicarb 20 Barium swallow: Presbyesophagus. Question pyloric stenosis October 09: Potassium 5.1 BUN 28 creatinine 1.56 White count 3.8 hemoglobin 9.7 platelets 208 sodium 128 potassium 5.2 BUN 40 creatinine 1.97 UA: Positive for leukoesterase, WBC, bacteria Influenza type A, type B, RSV, COVID-19: Not detected EKG tracing personally reviewed by me-sinus rhythm, nonspecific T-wave changes Computed tomography scan of the abdomen: Dependent stones in the gallbladder. Possible cyst in the liver.. Scattered diabetic changes. Fecal retention. Assessment and plan: -Acute UTI with cystitis By mouth Keflex -prebyesophagus.. GI consult -Duodenitis PPI -Chronic idiopathic insomnia Melatonin 10 mg daily at bedtime -Hyperlipidemia Lipitor 40 mg daily -Hypothyroid Synthroid 88 g daily. Check TSH -GERD PPI -Clinically with severe dehydration IV fluids -Acute kidney injury, suspect prerenal: Slow to respond Follow labs -Hyperkalemia secondary to acute kidney injury: Better Follow labs -Hyponatremia, hypoosmolar Normal saline PPI. Initiate diet. Patient to sit up. Increase activity. Follow with GI
[2021-10-12 16:55] LABS: Glucose,Whole Blood 87 mg/dL (75-99)
[2021-10-12] MEDS: MELATONIN 5 MG TABLET PO SCH (20:49)
[2021-10-12] MEDS: traMADol 50 MG TAB PO PRN (20:59)
[2021-10-12 21:39] LABS: Glucose,Whole Blood 102 mg/dL (75-99)
[2021-10-13] MEDS: LEVOTHYROXINE 88 MCG TAB PO SCH (06:00)
[2021-10-13] MEDS: INSULIN ASPART (NovoLOG) 100 UNIT/ML VIAL SQ SCH ×4 (07:13→20:54)
[2021-10-13 08:05] LABS: Glucose,Whole Blood 108 mg/dL (75-99)
[2021-10-13] MEDS: ASPIRIN 81 MG PO SCH (08:49)
[2021-10-13] MEDS: CEPHALEXIN 500 MG CAP PO SCH ×4 (08:49→21:01)
[2021-10-13] MEDS: PANTOPRAZOLE 40 MG TABLET PO SCH (08:49)
[2021-10-13] MEDS: ENOXAPARIN 40 MG/0.4 ML SYRINGE SQ SCH (08:50)
[2021-10-13] MEDS: polyethylene glycoL 3350 17 GM POWD.PACK PO SCH (08:50)
[2021-10-13] MEDS: DICLOFENAC SODIUM GEL 100 GM TUBE TOPICAL SCH ×4 (09:38→21:04)
[2021-10-13 11:57] LABS: Glucose,Whole Blood 106 mg/dL (75-99)
[2021-10-13] MEDS: DEXTROSE 5%-0.9% NACL 1,000 ML IV SCH (12:37)
--- NOTE | 2021-10-13 13:05 | P.PN ---
Subjective Progress Note Date: 10/13/21 Principal diagnosis: Dysphagia 61-year-old female who presented to emergency department with multiple complaints including difficulty with swallowing. Patient underwent a barium swallow that showed presbyesophagus as well as possible pyloric stenosis. Yesterday she underwent an EGD that did not show any pyloric stenosis, mild duodenitis, small hiatal hernia. Patient states she still has some difficulty with swallowing. Discuss with patient to check boot very small 8 small amounts each feeding and follow with liquids. She is denying any nausea or vomiting. Objective - Vital Signs Vital signs: Vital Signs Temp 98.0 F 10/13/21 01:34 Pulse 82 10/13/21 01:34 Resp 20 10/13/21 01:34 BP 98/66 10/13/21 01:34 Pulse Ox 92 L 10/13/21 01:34 Intake & Output 10/12/21 10/13/21 10/13/21 18:59 06:59 18:59 Intake Total 100 Output Total 0 Balance 100 0 Intake: IV 100 Output: Stool 0 Other: Voiding Method Toilet # Voids 2 1 - Exam General appearance: The patient is alert, oriented, appears in no acute distress. HET: Head is normocephalic and atraumatic. Conjunctiva pink. Sclera anicteric. Neck: Supple without lymphadenopathy. Abdomen: Soft, nontender, nondistended with bowel sounds. No guarding or rigidity. Extremities: Normal skin color and turgor. No pedal edema Skin: No rashes, no jaundice Neurological: No focal deficits. Alert and oriented x3. - Labs CBC & Chem 7: 10/08/21 10:54 10/10/21 05:36 Labs: Abnormal Lab Results - Last 24 Hours (Table) 10/12/21 10/13/21 Range/Units 21:15 08:03 POC Glucose (mg/dL) 102 H 108 H (75-99) mg/dL Assessment and Plan (1) Dysphagia Narrative/Plan: 61-year-old female who presented to the emergency department with complaints of weakness, lower extremity pain as well as difficulty with swallowing. States for last 1 month's duration she's been having difficulty swallowing solids. She is able to tolerate clear liquids. She does have a history of GERD, taking omeprazole. No previous history of peptic ulcer disease. She had a CT of the abdomen and pelvis that was unremarkable. She had a barium swallow that showed presbyesophagus and possible pyloric stenosis. As well as a small sliding hiata l hernia. Patient states when she solids she vomits it right back up. Feels like it goes down and then gets stuck in the center of her chest. She is able to hold liquids. Denies any hematemesis or coffee-ground emesis. No previous EGD. No history of peptic ulcer disease. Denies any NSAID use. Patient underwent EGD yesterday with no evidence of esophagitis, mild duodenitis, and patient had small hiatal hernia but no evidence of pyloric stenosis. Current Visit: Yes Status: Acute Code(s): R13.10 - DYSPHAGIA, UNSPECIFIED SNOMED Code(s): 99820204 Plan: 1. Continue symptomatic and supportive care 2. Protonix 40 mg daily 3. Patient would prefer a chopped Diet, discussed with patient to chew food very well and follow with liquids No plans on any further endoscopic evaluation. We will sign off at this time. Thank you for this consultation, we will continue to follow. Dr. Fede Ortiz I agree with the dictator's note, documented as a scribe by Brandy Adair.
[2021-10-13 13:24] VITALS: BMI 22.6
--- NOTE | 2021-10-13 14:05 | P.CN ---
Psychiatric Consult - . Consult date: 10/13/21 Consult:: 10/13/21 14:04 IDENTIFYING DATA: This patient is a , retired, 61-year-old female with a significant history of diabetes, GERD, hypertension, and thyroid disorder who presents to the hospital for nausea, vomiting, and abdominal pain. HISTORY OF PRESENT ILLNESS: The patient presented to the hospital on 10/08/2021, brought in by EMS for concerns for nausea, vomiting, and abdominal pain. Since admission, the patient was found to have a UTI and has been evaluated for difficulty with swallowing. As per barium swallow, the patient found to have presbyesophagus and delayed excretion through the pyloric channel. EGD showed duodenitis. Psychiatry has been consulted for evaluation of depression. Upon evaluation on the medical floor, the patient reports that she has just been feeling tired over the past 2-3 weeks. However the patient is not reporting any other significant symptoms of depression. She denies any suicidal or homicidal ideation, intention, and/or plan. She denies any symptoms of anhedonia, hopelessness, helplessness, change in hygiene and grooming, or change in motivation. The patient does express that she has had some difficulty with swallowing however denies any issues with her appetite. The patient reports that for the past few weeks prior to this admission, she attempted to supplement her nutrition with the use of meal replacement shakes such as ensure and glucerna. The patient denies any previous attempts at suicide. In regards other mood symptoms, the patient denies any significant history of bipolar disorder. She denies any increased goal-directed activity, pizza excessive energy, grandiosity. The patient reports no significant history of auditory or visual hallucinations. She denies any history of paranoia or other delusions. Regards life stressors, the patient reports that she has been dealing with increased stress at home in relation to living with in the home along with her , daughter, and grandson. Despite this, the patient otherwise is not reporting any other significant life stressors aside from her general health. PAST PSYCHIATRIC HISTORY: Patient reports a history of trauma however states that she sees a counselor for this. Patient denies being on any psychiatric medications. Patient denies any previous psychiatric hospitalizations. The patient is open with an outpatient counselor/therapist. Patient denies any history of suicide attempts in the past. PAST MEDICAL HISTORY: Past Medical History: Diabetes Mellitus, GERD/Reflux, Hyperlipidemia, Thyroid Disorder Additional Past Medical History / Comment(s): diet controlled diabetes, hypothyroid, food feeling "stuck" in throat History of Any Multi-Drug Resistant Organisms: None Reported Past Surgical History: Hysterectomy Past Psychological History: No Psychological Hx Reported Smoking Status: Former smoker Past Alcohol Use History: None Reported Past Drug Use History: None Reported ALLERGIES: [place], Benadryl, Honey Bee venom, sulfa CHEMICAL DEPENDENCY HISTORY: The patient denies any tobacco, alcohol, marijuana, or illicit drug use. FAMILY PSYCHIATRIC/SUBSTANCE USE HISTORY: The patient reports that both of her daughters have mental illness. She states that one of her daughters has bipolar disorder and OCD. She also states that her grandson is autistic. The patient does state that her first and the father of her children was schizophrenic. SOCIAL HISTORY: Patient was born in [place] and raised in [place]. She is currently to her second for 30 years. She currently lives with her parents, , daughter, and grandson. 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 She denies any legal history. She reports no service. She reports that she is Sabianism. MENTAL STATUS EXAM: General Appearance: Patient appears to be stated age is alert, pleasant, and cooperative. Patient appears to have fair hygiene and grooming wearing hospital gown with fair eye contact. Behavior: Patient is calmly seated upright in her chair without any agitated behavior. Speech: Patient's speech is fluent and nonpressured. Mood/Affect: Patient reports their mood is "doing okay", affect is congruent but somewhat constricted. Suicidality/Homicidality: Patient denies having any suicidal or homicidal ideation intent or plan. Perceptions: Patient denies any visual hallucinations and denies any auditory hallucinations Though content/process: There is no evidence of any delusional thought content and thought process is linear and goal-directed. Memory and concentration: AOX3, grossly intact for the purposes of this session. Can spell "WORLD" backwards Judgment and insight: Fair IMPRESSIONS: Adjustment disorder with low mood Urinary tract infection Presbyesophagus Due to tinnitus Hypothyroidism Acute kidney injury Hyponatremia PLAN: -At this time patient DOES NOT meet criteria for inpatient psychiatric admission. The patient is not presenting with any imminent risk of harm to self or others. She has no previous attempts at suicide. She has numerous protective factors and limited risk factors. She is future and goal oriented. -Would recommend the following medication changes/additions: Patient is willing to trial of Remeron order to help her with appetite and nausea. We will start with 7.5 mg at bedtime. The risks, benefits, and treatment alternatives of this medication were discussed with the patient in detail. -Recommend outpatient psychotherapy follow-up. -Psychiatry will sign off at this point, please contact with any questions. 10/13/21 14:05
[2021-10-13] MEDS: LORATADINE-PSEUDOEPH 5-120 MG 1 EACH TAB.ER.12H PO SCH ×2 (14:16→21:01)
--- NOTE | 2021-10-13 15:56 | P.PN ---
Progress Note - Text Progress Note Date: 10/13/21 Chief Complaint: Tired This is a pleasant 61-year-old patient, follows with Dr. Ashley. Chronic stable medical conditions include diabetes, GERD, hypertension dyslipidemia, hypothyroid, diet-controlled diabetes. Patient for 2 days having decreased oral intake. Some nausea vomiting. Chills. Some left lower quadrant pain. No change in the urine pattern. Feeling rather weak tired rundown. No chest pain or shortness of breath. Sometimes feeling food getting stuck in the throat. Labs were abnormal in the ER including sodium BUN/creatinine potassium. Admitted with acute UTI with cystitis. Started on ceftriaxone. October 09: Patient complaining of food coming up possible getting stuck. Barium swallow pending. Also completing a pain in the right hip and right knee. X-rays of the joints ordered. Orthopedics consulted. October 10: Saw the patient earlier today. Was pending barium swallow. Seen by orthopedics. No further intervention currently. Barium swallow: Presbyesophagus, delayed excretion through the pyloric channel. GI consulted October 11: Patient barely able to eat. Seen by GI earlier today. For EGD tomorrow. Discussed with patient. October 12: Saw the patient this morning. Pending EGD. Later EGD showed duodenitis. No pyloric stenosis. Initiate diet. PPI October 13: Patient may be a bit depressed and psychiatry was consulted. Remeron has been ordered. Patient also complaining of stuffy nose and ears. Did not eat her breakfast. Claritin-D ordered. Discussed with the patient for discharge tomorrow. Diagnosed with adjustment disorder with low mood Active Medications Acetaminophen (Acetaminophen Tab 325 Mg Tab) 650 mg PO Q6HR PRN PRN Reason: Fever and/ or Pain Last Admin: 10/10/21 15:39 Dose: 650 mg Documented by: Aspirin (Aspirin 81 Mg) 81 mg PO DAILY [facility] Last Admin: 10/13/21 08:49 Dose: 81 mg Documented by: Calcium Carbonate/Glycine (Calcium Carbonate 500 Mg Chewable) 1,000 mg PO Q4HR PRN PRN Reason: Dyspepsia Cephalexin (Cephalexin 500 Mg Cap) 500 mg PO QID [facility]; Protocol Last Admin: 10/13/21 14:16 Dose: 500 mg Documented by: Diclofenac Sodium (Diclofenac Sodium Gel 100 Gm Tube) 4 gm TOPICAL QID [facility]; Protocol Last Admin: 10/13/21 14:17 Dose: 4 gm Documented by: Enoxaparin Sodium (Enoxaparin 40 Mg/0.4 Ml Syringe) 40 mg SQ DAILY [facility] Last Admin: 10/13/21 08:50 Dose: 40 mg Documented by: Insulin Aspart (Insulin Aspart (Novolog) 100 Unit/Ml Vial) 0 unit SQ ACHS [facility]; Protocol Last Admin: 10/13/21 11:58 Dose: Not Given Documented by: Lactulose (Lactulose 20 Gm/30 Ml Cup) 20 gm PO DAILY PRN PRN Reason: Constipation Levothyroxine Sodium (Levothyroxine 88 Mcg Tab) 88 mcg PO DAILY@0630 [facility] Last Admin: 10/13/21 06:00 Dose: 88 mcg Documented by: Loratadine/Pseudoephedrine Sulfate (Loratadine-Pseudoeph 5-120 Mg 1 Each Tab.Er.12h) 1 each PO Q12HR [facility] Last Admin: 10/13/21 14:16 Dose: 1 each Documented by: Melatonin (Melatonin 5 Mg Tablet) 10 mg PO [facility] Last Admin: 10/12/21 20:49 Dose: 10 mg Documented by: Mirtazapine (Mirtazapine 15 Mg Tab) 7.5 mg PO [facility] Naloxone HCl (Naloxone 0.4 Mg/Ml 1 Ml Vial) 0.2 mg IV Q2M PRN PRN Reason: Opioid Reversal Ondansetron HCl (Ondansetron 4 Mg/2 Ml Vial) 4 mg IVP Q8HR PRN PRN Reason: Nausea And Vomiting Last Admin: 10/11/21 12:17 Dose: 4 mg Documented by: Pantoprazole Sodium (Pantoprazole 40 Mg Tablet) 40 mg PO AC-BRKFST [facility] Last Admin: 10/13/21 08:49 Dose: 40 mg Documented by: Polyethylene Glycol (Polyethylene Glycol 3350 17 Gm Powd.Pack) 17 gm PO DAILY [facility] Last Admin: 10/13/21 08:50 Dose: Not Given Documented by: Tramadol HCl (Tramadol 50 Mg Tab) 50 mg PO TID PRN PRN Reason: Pain Last Admin: 10/12/21 20:59 Dose: 50 mg Documented by: Past medical history to include: Diabetes, GERD, hyperlipidemia, hypothyroid, Social history: Lives with . Did smoke in the past. No alcohol. Family history: Diabetes and hypertension Physical examination: VITAL SIGNS: 97.8, 79, 16, 100/64, 92% room air GENERAL: awake laying in bed . EYES: Pupils equal. Conjunctiva normal. HEENT: External appearance of nose and ears normal, oral cavity grossly normal. NECK: JVD not raised; masses not palpable. HEART: First and second heart sounds are normal; no edema. LUNGS: Respiratory rate normal; clear to auscultation. ABDOMEN: Soft, nontender, liver spleen not palpable, no masses palpable. PSYCH: Alert and oriented x3; mood and affect no MUSCULOSKELETAL:No Clubbing/cyanosis;muscles-grossly intact. Evidence of OA especially in the knees INVESTIGATIONS, reviewed in the clinical context: EGD: Duodenitis. No pyloric stenosis October 10: Potassium 4.6 BUN 18 creatinine 1.20 bicarb 20 Barium swallow: Presbyesophagus. Question pyloric stenosis October 09: Potassium 5.1 BUN 28 creatinine 1.56 White count 3.8 hemoglobin 9.7 platelets 208 sodium 128 potassium 5.2 BUN 40 creatinine 1.97 UA: Positive for leukoesterase, WBC, bacteria Influenza type A, type B, RSV, COVID-19: Not detected EKG tracing personally reviewed by me-sinus rhythm, nonspecific T-wave changes Computed tomography scan of the abdomen: Dependent stones in the gallbladder. Possible cyst in the liver.. Scattered diabetic changes. Fecal retention. Assessment and plan: -Acute UTI with cystitis By mouth Keflex -prebyesophagus.. GI consult -Adjustment disorder with low mood Remeron 7.5 mg daily at bedtime -Duodenitis PPI -Chronic idiopathic insomnia Melatonin 10 mg daily at bedtime -Hyperlipidemia Lipitor 40 mg daily -Hypothyroid Synthroid 88 g daily. Check TSH -GERD PPI -Clinically with severe dehydration IV fluids -Acute kidney injury, suspect prerenal: Follow labs -Hyperkalemia secondary to acute kidney injury: Better Follow labs -Hyponatremia, hypoosmolar Normal saline PPI. Seen by psychiatry. Remeron 7.5 mg daily at bedtime started. Claritin-D added. Discussed with patient to increase oral intake. Plan for discharge tomorrow.
[2021-10-13 17:02] LABS: Glucose,Whole Blood 77 mg/dL (75-99)
[2021-10-13 17:24] LABS: Glucose,Whole Blood 76 mg/dL (75-99)
[2021-10-13 17:54] LABS: Glucose,Whole Blood 87 mg/dL (75-99)
[2021-10-13 20:19] LABS: Glucose,Whole Blood 80 mg/dL (75-99)
[2021-10-13] MEDS ORDERED: MIRTAZAPINE 15 MG TAB PO SCH (21:00)
[2021-10-13] MEDS: MELATONIN 5 MG TABLET PO SCH (21:01)
[2021-10-13] MEDS: traMADol 50 MG TAB PO PRN (21:02)
[2021-10-14 01:51] VITALS: TEMP 98.7
[2021-10-14] MEDS: LEVOTHYROXINE 88 MCG TAB PO SCH (06:06)
[2021-10-14 06:26] LABS: African American GFR (CKD) >90 (>60 ml/min/1.73 sqM); Anion Gap 3 mmol/L; Blood Urea Nitrogen 3 mg/dL (7-17); Calcium 8.8 mg/dL (8.4-10.2); Carbon Dioxide 20 mmol/L (22-30); Chloride 113 mmol/L (98-107); Glucose 71 mg/dL (74-99); Non-African American GFR(CKD) 82 (>60 ml/min/1.73 sqM); Potassium 4.1 mmol/L (3.5-5.1); Sodium 136 mmol/L (137-145)
[2021-10-14 06:50] LABS: Glucose,Whole Blood 76 mg/dL (75-99)
[2021-10-14 07:27] VITALS: BP 104/67; PULSE 83; RESP 17
[2021-10-14] MEDS: INSULIN ASPART (NovoLOG) 100 UNIT/ML VIAL SQ SCH ×2 (08:07→12:04)
[2021-10-14] MEDS: polyethylene glycoL 3350 17 GM POWD.PACK PO SCH (08:13)
[2021-10-14] MEDS: CEPHALEXIN 500 MG CAP PO SCH ×2 (08:13→12:10)
[2021-10-14] MEDS: PANTOPRAZOLE 40 MG TABLET PO SCH (08:13)
[2021-10-14] MEDS: DICLOFENAC SODIUM GEL 100 GM TUBE TOPICAL SCH (08:13)
[2021-10-14] MEDS: ASPIRIN 81 MG PO SCH (08:13)
[2021-10-14] MEDS: ENOXAPARIN 40 MG/0.4 ML SYRINGE SQ SCH (08:14)
[2021-10-14] MEDS: LORATADINE-PSEUDOEPH 5-120 MG 1 EACH TAB.ER.12H PO SCH (08:14)
[2021-10-14 11:14] LABS: Glucose,Whole Blood 74 mg/dL (75-99)
[2021-10-14 18:49] LABS: Gliadin AB IgA, Deaminated NEGATIVE (NEGATIVE); Gliadin AB IgA, Unit <0.2 U/mL; Tis Transglutaminase IgA Unit <0.5 AI; Tissue Transglutaminase IgA NEGATIVE (NEGATIVE)
[2021-10-14 18:52] LABS: Gliadin AB IgG, Deaminated NEGATIVE (NEGATIVE); Gliadin AB IgG, Unit <0.4 U/mL; Tis Transglutaminase IgG Unit <0.8 U/mL; Tissue Transglutaminase IgG NEGATIVE (NEGATIVE)
--- NOTE | 2021-10-14 19:40 | P.DS ---
Providers Date of admission: 10/08/21 15:07 Expected date of discharge: 10/14/21 Attending physician: Ky Rivera Consults: 10/09/21 14:09 Consult Physician Routine Consulting Provider: Jerad Herman Consult Reason/Comments: R hip/knee pain Do you want consulting provider notified?: Yes 10/13/21 11:09 Consult Physician Routine Consulting Provider: Koffi Garcia Consult Reason/Comments: poss depression Do you want consulting provider notified?: Yes Primary care physician: Arvin Ashley [facility] Course: Chief Complaint: Tired This is a pleasant 61-year-old patient, follows with Dr. Ashley. Chronic stable medical conditions include diabetes, GERD, hypertension dyslipidemia, hypothyroid, diet-controlled diabetes. Patient for 2 days having decreased oral intake. Some nausea vomiting. Chills. Some left lower quadrant pain. No change in the urine pattern. Feeling rather weak tired rundown. No chest pain or shortness of breath. Sometimes feeling food getting stuck in the throat. Labs were abnormal in the ER including sodium BUN/creatinine potassium. Admitted with acute UTI with cystitis. Started on ceftriaxone, completed course with Keflex For nausea vomiting and food getting stuck patient underwent a barium swallow that showed presbyesophagus.. EGD by Dr. Fede Ortiz showed duodenitis. PPI added. Also complaining of pain in the right hip and right knee. X-rays were nonspecific. Seen by orthopedics. Voltaren gel and Tylenol ordered. Diagnosed to have adjustment disorder with low mood and Remeron was added by Dr. Peter Blank from psychiatry. Acute kidney injury. Creatinine improved from 1.97 down to 0.78 October 14: Eating better. Care was discussed with the patient. Questions answered. Past medical history to include: Diabetes, GERD, hyperlipidemia, hypothyroid, Social history: Lives with . Did smoke in the past. No alcohol. Family history: Diabetes and hypertension Physical examination: VITAL SIGNS: 98.7, 83, 17, 104/67, 92% room air GENERAL: Sitting up in bed, comfortable EYES: Pupils equal. Conjunctiva normal. HEENT: External appearance of nose and ears normal, oral cavity grossly normal. NECK: JVD not raised; masses not palpable. HEART: First and second heart sounds are normal; no edema. LUNGS: Respiratory rate normal; clear to auscultation. ABDOMEN: Soft, nontender, liver spleen not palpable, no masses palpable. PSYCH: Alert and oriented x3; mood and affect slightly low MUSCULOSKELETAL:No Clubbing/cyanosis;muscles-grossly intact. Evidence of OA especially in the knees INVESTIGATIONS, reviewed in the clinical context: October 14: Potassium 4.1 creatinine 0.78 EGD: Duodenitis. No pyloric stenosis October 10: Potassium 4.6 BUN 18 creatinine 1.20 bicarb 20 Barium swallow: Presbyesophagus. Question pyloric stenosis October 09: Potassium 5.1 BUN 28 creatinine 1.56 White count 3.8 hemoglobin 9.7 platelets 208 sodium 128 potassium 5.2 BUN 40 creatinine 1.97 UA: Positive for leukoesterase, WBC, bacteria Influenza type A, type B, RSV, COVID-19: Not detected EKG tracing personally reviewed by me-sinus rhythm, nonspecific T-wave changes Computed tomography scan of the abdomen: Dependent stones in the gallbladder. Possible cyst in the liver.. Scattered diabetic changes. Fecal retention. Assessment and plan: -Acute UTI with cystitis By mouth Keflex. Completed course -prebyesophagus.. Diet as tolerated -Adjustment disorder with low mood Remeron 7.5 mg daily at bedtime -Duodenitis PPI -Chronic idiopathic insomnia Melatonin 10 mg daily at bedtime -Hyperlipidemia Lipitor 40 mg daily -Hypothyroid Synthroid 88 g daily. -GERD PPI -Clinically with severe dehydration IV fluids -Acute kidney injury, suspect prerenal: Corrected Follow labs -Hyperkalemia secondary to acute kidney injury: Better Follow labs -Hyponatremia, hypoosmolar: Improved Normal saline Disposition: Home Patient Condition at Discharge: Fair Plan - Discharge Summary New Discharge Prescriptions: New Loratadine-Pseudoeph 5-120 mg [Claritin-D 12 Hour] 1 each PO Q12HR #6 tablet Mirtazapine [Remeron] 7.5 mg PO HS #30 tab polyethylene glycoL 3350 [Miralax] 17 gm PO DAILY #30 packet Acetaminophen Tab [Tylenol] 650 mg PO Q6HR PRN tab PRN Reason: Fever And/ Or Pain Diclofenac Sodium Gel [Voltaren Gel] 4 gm TOPICAL QID #1 gm Continue Atorvastatin [Lipitor] 40 mg PO DAILY Aspirin EC [Ecotrin Low Dose] 81 mg PO DAILY Melatonin 10 mg PO HS Ergocalciferol (Vitamin D2) [isdol (50,000 Iu)] 1,250 mcg PO TU Omeprazole 20 mg PO DAILY Levothyroxine Sodium [Synthroid] 88 mcg PO DAILY No Action Ashwarafadha Root Extract 300 mg PO DAILY Discharge Medication List Ashwagandha Root Extract 300 mg PO DAILY 10/08/21 [History] Aspirin EC [Ecotrin Low Dose] 81 mg PO DAILY 10/08/21 [History] Atorvastatin [Lipitor] 40 mg PO DAILY 10/08/21 [History] Ergocalciferol (Vitamin D2) [Drisdol (50,000 Iu)] 1,250 mcg PO TU 10/08/21 [History] Levothyroxine Sodium [Synthroid] 88 mcg PO DAILY 10/08/21 [History] Melatonin 10 mg PO HS 10/08/21 [History] Omeprazole 20 mg PO DAILY 10/08/21 [History] Acetaminophen Tab [Tylenol] 650 mg PO Q6HR PRN tab 10/14/21 [Rx] Diclofenac Sodium Gel [Voltaren Gel] 4 gm TOPICAL QID #1 gm 10/14/21 [Rx] Loratadine-Pseudoeph 5-120 mg [Claritin-D 12 Hour] 1 each PO Q12HR #6 tablet 10/14/21 [Rx] Mirtazapine [Remeron] 7.5 mg PO HS #30 tab 10/14/21 [Rx] polyethylene glycoL 3350 [Miralax] 17 gm PO DAILY #30 packet 10/14/21 [Rx] Follow up Appointment(s)/Referral(s): dr GAUTAM [Other] - 1 Week Lisa Ortiz MD [STAFF PHYSICIAN] - 1 Week (Call office in one week for biopsy results) Arvin Ashley MD [Primary Care Provider] - 10/17/21 8:00 am Jerad Herman MD [Medical Doctor] - 10/20/21 9:15 am Patient Instructions/Handouts: Dehydration (DC), Chronic Dysphagia (DC) Discharge Disposition: HOME SELF-CARE
== END 2021-10-14 12:57 | disposition home or self-care (01) | DRG 392 ==
LOC: EC 10:29 → 4SSUR 15:07
PROVIDERS: ADMIT Hospitalist; ATTEND Hospitalist
PROC: 0DB38ZX Excision of Lower Esophagus, Via Natural or Artificial Opening Endoscopic, Diagnostic (ICD-10-PCS; principal; 2021-10-12 13:45)
DX: K29.80 Duodenitis without bleeding (principal); N17.9 Acute kidney failure, unspecified; E87.1 Hypo-osmolality and hyponatremia; N30.90 Cystitis, unspecified without hematuria; E86.0 Dehydration; E03.9 Hypothyroidism, unspecified; E11.9 Type 2 diabetes mellitus without complications; E78.5 Hyperlipidemia, unspecified; I10 Essential (primary) hypertension; F43.29 Adjustment disorder with other symptoms; K21.9 Gastro-esophageal reflux disease without esophagitis; K22.89 Other specified disease of esophagus; K44.9 Diaphragmatic hernia without obstruction or gangrene; F51.01 Primary insomnia; K57.90 Diverticulosis of intestine, part unspecified, without perforation or abscess without bleeding; E87.5 Hyperkalemia; Z20.822 Contact with and (suspected) exposure to COVID-19; K80.20 Calculus of gallbladder without cholecystitis without obstruction; R13.10 Dysphagia, unspecified; H93.19 Tinnitus, unspecified ear; Z79.82 Long term (current) use of aspirin; Z79.890 Hormone replacement therapy; Z79.899 Other long term (current) drug therapy; Z87.891 Personal history of nicotine dependence; Z90.710 Acquired absence of both cervix and uterus; Z82.49 Family history of ischemic heart disease and other diseases of the circulatory system; Z83.3 Family history of diabetes mellitus; Z91.030 Bee allergy status; Z88.2 Allergy status to sulfonamides; Z88.8 Allergy status to other drugs, medicaments and biological substances; Z91.018 Allergy to other foods
CPT/HCPCS: 36415; 43239; 73502; 74176; 74220; 80048; 80053; 81001; 83516; 83690; 85025; 85610; 85730; 87636; 88305; 93005; 96374; 99285

== ENCOUNTER 2021-11-18 12:48 | Inpatient (IN) | payer OTHER ==
[2021-11-18] MEDS ORDERED: SODIUM CHLORIDE 0.9% 1,000 ML IV STA (12:56)
--- NOTE | 2021-11-18 13:12 | ED ---
General Adult HPI - General Chief complaint: Weakness Stated complaint: Weakness Time Seen by Provider: 11/18/21 12:55 Source: patient, family, EMS, RN notes reviewed, old records reviewed Mode of arrival: EMS - History of Present Illness Initial comments: This is a 61-year-old female who presents emergency Department complaining of being tired and occasionally feel like she might pass out. Patient states his been ongoing for a couple of months. Patient states she also has been having nausea and sometimes vomiting anytime she eats solid food and she states this is been ongoing for a few months. Patient states she was admitted to the hospital for this in September and saw Dr. Goodwin and they did a colonoscopy and endoscopy per the patient. Patient states they found some polyps as well as some irritated areas in his stomach but other than that they didn't find much else. Patient states she's had no fever chills. Patient states she's been told she is anemic and she is taking iron pills at this time. Patient denies any black or bloody stools. Patient denies any blood in the emesis. Patient states she does feel lightheaded on occasion but not when she is lying in bed. Patient denies any chest pain or palpitations. Patient shortness of breath or difficulty b reathing.patient was at her doctor's office today and her blood pressure was low so they sent her into the emergency department. - Related Data Home Medications Medication Instructions Recorded Confirmed Aspirin EC [Ecotrin Low Dose] 81 mg PO DAILY 10/08/21 11/18/21 Atorvastatin [Lipitor] 40 mg PO DAILY 10/08/21 11/18/21 Levothyroxine Sodium [Synthroid] 88 mcg PO DAILY 10/08/21 11/18/21 Melatonin 10 mg PO HS 10/08/21 11/18/21 Omeprazole 40 mg PO DAILY 10/08/21 11/18/21 Ferrous Sulfate [Feosol] 650 mg PO DAILY 11/18/21 11/18/21 Allergies Allergy/AdvReac Type Severity Reaction Status Date / Time bee venom protein (honey bee) Allergy Unknown Verified 11/18/21 16:10 diphenhydramine Allergy Unknown Verified 11/18/21 16:10 [From Benadryl] erythromycin base Allergy Unknown Verified 11/18/21 16:10 orange Allergy Unknown Verified 11/18/21 16:10 Sulfa (Sulfonamide Allergy Unknown Verified 11/18/21 16:10 Antibiotics) sulfacetamide AdvReac Unknown Verified 11/18/21 16:10 Review of Systems ROS Statement: Those systems with pertinent positive or pertinent negative responses have been documented in the HPI. ROS Other: All systems not noted in ROS Statement are negative. Past Medical History Past Medical History: Diabetes Mellitus, GERD/Reflux, Hyperlipidemia, Thyroid Disorder Additional Past Medical History / Comment(s): diet controlled diabetes, hyp othyroid, food feeling "stuck" in throat History of Any Multi-Drug Resistant Organisms: None Reported Past Surgical History: Hysterectomy Past Psychological History: No Psychological Hx Reported Smoking Status: Former smoker Past Alcohol Use History: None Reported Past Drug Use History: None Reported - Past Family History Mother Family Medical History: Diabetes Mellitus, Hypertension Father Family Medical History: Diabetes Mellitus, Hypertension General Exam - General Exam Comments Initial Comments: GENERAL: Patient is well-developed and well-nourished. Patient is nontoxic and well-hydrated and is in mild distress. ENT: Neck is soft and supple. No significant lymphadenopathy is noted. Oropharynx is clear. Moist mucous membranes. Neck has full range of motion without eliciting any pain. EYES: The sclera were anicteric and conjunctiva are pale. Extraocular movements were intact and pupils were equal round and reactive to light. Eyelids were unremarkable. PULMONARY: Unlabored respirations. Good breath sounds bilaterally. No audible rales rhonchi or wheezing was noted. CARDIOVASCULAR: There is a regular rate and rhythm without any murmurs gallops or rubs. ABDOMEN: Patient has mild left lower quadrant pain no rebound.. SKIN: Patient's CT skin is pale NEUROLOGIC: Patient is alert and oriented x3. Cranial nerves II through XII are grossly intact. Motor and sensory are also intact. Normal speech, volume and content. Symmetrical smile. grossly intact. MUSCULOSKELETAL: Normal extremities with adequate strength and full range of motion. No lower extremity swelling or edema. No calf tenderness. LYMPHATICS: No significant lymphadenopathy is noted PSYCHIATRIC: Normal psychiatric evaluation. Course Vital Signs 11/18/21 11/18/21 11/18/21 12:52 13:51 14:51 Temperature 97.5 F L Pulse Rate 73 77 Pulse Rate [ 73 Special Assets Officer ] Pulse Rate [ Sitting] Pulse Rate [ Standing] Pulse Rate [ 70 Supine] Respiratory 18 16 18 Rate Blood Pressure 146/75 Blood Pressure [Right Arm Sitting] Blood Pressure [Right Arm Standing] Blood Pressure 128/80 [Right Arm Supine] O2 Sat by Pulse 100 100 98 Oximetry 11/18/21 11/18/21 14:55 15:04 Temperature Pulse Rate 78 Pulse Rate [ Special Assets Officer ] Pulse Rate [ 76 Sitting] Pulse Rate [ 81 Standing] Pulse Rate [ Supine] Respiratory 18 18 Rate Blood Pressure 151/56 Blood Pressure 115/69 [Right Arm Sitting] Blood Pressure 92/60 [Right Arm Standing] Blood Pressure 128/80 [Right Arm Supine] O2 Sat by Pulse 99 98 Oximetry Medical Decision Making - Medical Decision Making EKG shows sinus rhythm at 71 bpm CA interval 174 QRS is 92 QT interval is 436 QTC is 458. Patient's EKG shows no ST segment elevation or depression. Patient's chest x-ray shows no acute abnormality. Patient's sugar was in the 40s so we gave her an amp of D50 and gave her some food. Patient states she's been unable to tolerate food because she keeps v omiting up this is difficult to swallow. Patient also states she's had multiple episodes where she stands up and thinks she's given a passout. - Lab Data Result diagrams: 11/18/21 13:09 11/18/21 13:09 Lab Results 11/18/21 11/18/21 11/18/21 Range/Units 13:09 13:09 13:09 WBC 3.6 L (3.8-10.6) k/uL RBC 3.57 L (3.80-5.40) m/uL Hgb 10.5 L (11.4-16.0) gm/dL Hct 30.9 L (34.0-46.0) % MCV 86.4 (80.0-100.0) fL MCH 29.5 (25.0-35.0) pg MCHC 34.2 (31.0-37.0) g/dL RDW 12.6 (11.5-15.5) % Plt Count 184 (150-450) k/uL MPV 7.3 Neutrophils % 43 % Lymphocytes % 46 % Monocytes % 6 % Eosinophils % 3 % Basophils % 1 % Neutrophils # 1.6 (1.3-7.7) k/uL Lymphocytes # 1.7 (1.0-4.8) k/uL Monocytes # 0.2 (0-1.0) k/uL Eosinophils # 0.1 (0-0.7) k/uL Basophils # 0.0 (0-0.2) k/uL PT 11.9 (9.0-12.0) sec INR 1.1 (<1.2) APTT 30.2 H (22.0-30.0) sec Sodium 127 L (137-145) mmol/L Potassium 4.3 (3.5-5.1) mmol/L Chloride 97 L (98-107) mmol/L Carbon Dioxide 24 (22-30) mmol/L Anion Gap 6 mmol/L BUN 14 (7-17) mg/dL Creatinine 0.92 (0.52-1.04) mg/dL Est GFR (CKD-EPI)AfAm 77 (>60 ml/min/1.73 sqM) Est GFR (CKD-EPI)NonAf 67 (>60 ml/min/1.73 sqM) Glucose 46 L* (74-99) mg/dL POC Glucose (mg/dL) (75-99) mg/dL POC Glu Bilingual Inside Sales Representative ID Plasma Lactic Acid Chase (0.7-2.0) mmol/L Calcium 10.4 H (8.4-10.2) mg/dL Magnesium 1.4 L (1.6-2.3) mg/dL Total Bilirubin 0.7 (0.2-1.3) mg/dL AST 31 (14-36) U/L ALT 14 (4-34) U/L Alkaline Phosphatase 42 (38-126) U/L Troponin I (0.000-0.034) ng/mL Total Protein 6.0 L (6.3-8.2) g/dL Albumin 3.3 L (3.5-5.0) g/dL Urine Color Urine Appearance (Clear) Urine pH (5.0-8.0) Ur Specific [place] (1.001-1.035) Urine Protein (Negative) Urine Glucose (UA) (Negative) Urine Ketones (Negative) Urine Blood (Negative) Urine Nitrite (Negative) Urine Bilirubin (Negative) Urine Urobilinogen (<2.0) mg/dL Ur Leukocyte Esterase (Negative) Blood Type Blood Type Confirm Blood Type Recheck Bld Type Recheck Status Antibody Screen Spec Expiration Date 11/18/21 11/18/21 11/18/21 Range/Units 13:09 13:09 13:09 WBC (3.8-10.6) k/uL RBC (3.80-5.40) m/uL Hgb (11.4-16.0) gm/dL Hct (34.0-46.0) % MCV (80.0-100.0) fL MCH (25.0-35.0) pg MCHC (31.0-37.0) g/dL RDW (11.5-15.5) % Plt Count (150-450) k/uL MPV Neutrophils % % Lymphocytes % % Monocytes % % Eosinophils % % Basophils % % Neutrophils # (1.3-7.7) k/uL Lymphocytes # (1.0-4.8) k/uL Monocytes # (0-1.0) k/uL Eosinophils # (0-0.7) k/uL Basophils # (0-0.2) k/uL PT (9.0-12.0) sec INR (<1.2) APTT (22.0-30.0) sec Sodium (137-145) mmol/L Potassium (3.5-5.1) mmol/L Chloride (98-107) mmol/L Carbon Dioxide (22-30) mmol/L Anion Gap mmol/L BUN (7-17) mg/dL Creatinine (0.52-1.04) mg/dL Est GFR (CKD-EPI)AfAm (>60 ml/min/1.73 sqM) Est GFR (CKD-EPI)NonAf (>60 ml/min/1.73 sqM) Glucose (74-99) mg/dL POC Glucose (mg/dL) (75-99) mg/dL POC Glu Bilingual Inside Sales Representative ID Plasma Lactic Acid Chase 1.1 (0.7-2.0) mmol/L Calcium (8.4-10.2) mg/dL Magnesium (1.6-2.3) mg/dL Total Bilirubin (0.2-1.3) mg/dL AST (14-36) U/L ALT (4-34) U/L Alkaline Phosphatase (38-126) U/L Troponin I <0.012 (0.000-0.034) ng/mL Total Protein (6.3-8.2) g/dL Albumin (3.5-5.0) g/dL Urine Color Urine Appearance (Clear) Urine pH (5.0-8.0) Ur Specific [place] (1.001-1.035) Urine Protein (Negative) Urine Glucose (UA) (Negative) Urine Ketones (Negative) Urine Blood (Negative) Urine Nitrite (Negative) Urine Bilirubin (Negative) Urine Urobilinogen (<2.0) mg/dL Ur Leukocyte Esterase (Negative) Blood Type O Positive Blood Type Confirm Blood Type Recheck No Previous Record Bld Type Recheck Status CABO Indicated Antibody Screen NEGATIVE Spec Expiration Date 11/21/2021 - 230811/18/21 11/18/21 11/18/21 Range/Units 13:14 14:25 15:11 WBC (3.8-10.6) k/uL RBC (3.80-5.40) m/uL Hgb (11.4-16.0) gm/dL Hct (34.0-46.0) % MCV (80.0-100.0) fL MCH (25.0-35.0) pg MCHC (31.0-37.0) g/dL RDW (11.5-15.5) % Plt Count (150-450) k/uL MPV Neutrophils % % Lymphocytes % % Monocytes % % Eosinophils % % Basophils % % Neutrophils # (1.3-7.7) k/uL Lymphocytes # (1.0-4.8) k/uL Monocytes # (0-1.0) k/uL Eosinophils # (0-0.7) k/uL Basophils # (0-0.2) k/uL PT (9.0-12.0) sec INR (<1.2) APTT (22.0-30.0) sec Sodium (137-145) mmol/L Potassium (3.5-5.1) mmol/L Chloride (98-107) mmol/L Carbon Dioxide (22-30) mmol/L Anion Gap mmol/L BUN (7-17) mg/dL Creatinine (0.52-1.04) mg/dL Est GFR (CKD-EPI)AfAm (>60 ml/min/1.73 sqM) Est GFR (CKD-EPI)NonAf (>60 ml/min/1.73 sqM) Glucose (74-99) mg/dL POC Glucose (mg/dL) 158 H (75-99) mg/dL POC Glu Bilingual Inside Sales Representative ID Roselia Mnuoz Plasma Lactic Acid Chase (0.7-2.0) mmol/L Calcium (8.4-10.2) mg/dL Magnesium (1.6-2.3) mg/dL Total Bilirubin (0.2-1.3) mg/dL AST (14-36) U/L ALT (4-34) U/L Alkaline Phosphatase (38-126) U/L Troponin I (0.000-0.034) ng/mL Total Protein (6.3-8.2) g/dL Albumin (3.5-5.0) g/dL Urine Color Light Yellow Urine Appearance Clear (Clear) Urine pH 5.0 (5.0-8.0) Ur Specific [place] 1.005 (1.001-1.035) Urine Protein Negative (Negative) Urine Glucose (UA) Negative (Negative) Urine Ketones Negative (Negative) Urine Blood Negative (Negative) Urine Nitrite Negative (Negative) Urine Bilirubin Negative (Negative) Urine Urobilinogen <2.0 (<2.0) mg/dL Ur Leukocyte Esterase Negative (Negative) Blood Type Blood Type Confirm O Positive Blood Type Recheck Bld Type Recheck Status Antibody Screen Spec Expiration Date Disposition Clinical Impression: Near syncope, Hypoglycemia, Hyponatremia, Orthostatic hypotension, Hypomagne semia Disposition: ADMITTED IP TO THIS HOSP Referrals: Arvin Ashley MD [Primary Care Provider] - 1-2 days Time of Disposition: 15:28
[2021-11-18 13:29] LABS: Basophils % (A) 1 %; Eosinophils # (A) 0.1 k/uL (0-0.7); Eosinophils % (A) 3 %; HCT 30.9 % (34.0-46.0); HGB 10.5 gm/dL (11.4-16.0); Lymphocytes # (A) 1.7 k/uL (1.0-4.8); Lymphocytes % (A) 46 %; MCH 29.5 pg (25.0-35.0); MCHC 34.2 g/dL (31.0-37.0); MCV 86.4 fL (80.0-100.0); Mean Platelet Volume 7.3; Monocytes # (A) 0.2 k/uL (0-1.0); Monocytes % (A) 6 %; Neutrophils # (A) 1.6 k/uL (1.3-7.7); Neutrophils % (A) 43 %; Platelet Count 184 k/uL (150-450); RBC 3.57 m/uL (3.80-5.40); RDW 12.6 % (11.5-15.5); WBC 3.6 k/uL (3.8-10.6)
[2021-11-18 13:49] LABS: INR 1.1 (<1.2); Partial Thromboplastin Time 30.2 sec (22.0-30.0); Prothrombin Time 11.9 sec (9.0-12.0)
--- NOTE | 2021-11-18 13:59 | XR ---
EXAMINATION TYPE: XR chest 2V DATE OF EXAM: 11/18/2021 COMPARISON: X-ray dated 11/04/2020 HISTORY: Weakness and nausea TECHNIQUE: Frontal and lateral views of the chest are obtained. FINDINGS: Suboptimal x-ray with poor penetration. Grossly unremarkable lungs. No sizable pleural effusion or de finite pneumothorax. No gross cardiomegaly. No gross aggressive bone lesion. IMPRESSION: No definite acute pulmonary abnormality identified.
[2021-11-18 14:06] LABS: Albumin 3.3 g/dL (3.5-5.0); Calcium 10.4 mg/dL (8.4-10.2); Magnesium 1.4 mg/dL (1.6-2.3); Potassium 4.3 mmol/L (3.5-5.1); Total Bilirubin 0.7 mg/dL (0.2-1.3)
[2021-11-18] MEDS ORDERED: DEXTROSE 50% SYRINGE 50 ML IVP STA (14:46)
[2021-11-18 14:52] LABS: Appearance,Urine Clear (Clear); Bilirubin,Urine Negative (Negative); Blood,Urine Negative (Negative); Color,Urine Light Yellow; Glucose,Urine (UA) Negative (Negative); Ketones,Urine Negative (Negative); Leukocyte Esterase,Urine Negative (Negative); Nitrite,Urine Negative (Negative); Protein,Urine Negative (Negative); Specific Gravity,Urine 1.005 (1.001-1.035); Urobilinogen,Urine <2.0 mg/dL (<2.0)
[2021-11-18 15:12] LABS: Glucose,Whole Blood 158 mg/dL (75-99)
[2021-11-18] MEDS ORDERED: MAGNESIUM SULFATE-D5W PMX 1 GM in DEXTROSE/WATER 1 100ML.BAG IVPB ONE (16:01)
[2021-11-18] MEDS ORDERED: SODIUM CHLORIDE 0.9% 1,000 ML IV ONE (16:15)
[2021-11-18] MEDS ORDERED: KETOROLAC 15 MG/ML 1 ML VIAL IVP STA (16:34)
[2021-11-18] MEDS ORDERED: LORazepam 0.5 MG TAB PO PRN (17:23)
[2021-11-18] MEDS ORDERED: CALCIUM CARBONATE 500 MG CHEWABLE PO PRN (17:23)
[2021-11-18] MEDS ORDERED: LACTULOSE 20 GM/30 ML CUP PO PRN (17:23)
[2021-11-18] MEDS ORDERED: NALOXONE 0.4 MG/ML 1 ML VIAL IV PRN (17:23)
[2021-11-18] MEDS: ENOXAPARIN 40 MG/0.4 ML SYRINGE SQ SCH (17:58)
[2021-11-18] MEDS: SODIUM CHLORIDE 0.9% 1,000 ML IV SCH (17:58)
[2021-11-18] MEDS: MELATONIN 5 MG TABLET PO SCH (21:16)
[2021-11-19] MEDS ORDERED: LEVOTHYROXINE 88 MCG TAB PO SCH (06:30)
[2021-11-19 07:09] LABS: African American GFR (CKD) 81 (>60 ml/min/1.73 sqM); Anion Gap 4 mmol/L; Blood Urea Nitrogen 12 mg/dL (7-17); Calcium 9.6 mg/dL (8.4-10.2); Carbon Dioxide 23 mmol/L (22-30); Chloride 102 mmol/L (98-107); Glucose 55 mg/dL (74-99); Non-African American GFR(CKD) 71 (>60 ml/min/1.73 sqM); Potassium 4.3 mmol/L (3.5-5.1); Sodium 129 mmol/L (137-145)
[2021-11-19] MEDS: FERROUS SULFATE 325 MG TAB PO SCH (07:33)
[2021-11-19] MEDS: ENOXAPARIN 40 MG/0.4 ML SYRINGE SQ SCH (07:34)
[2021-11-19] MEDS: ASPIRIN 81 MG PO SCH (07:34)
[2021-11-19] MEDS: ATORVASTATIN 40 MG TAB PO SCH (07:34)
[2021-11-19] MEDS: PANTOPRAZOLE 40 MG TABLET PO SCH (07:34)
[2021-11-19] MEDS: SODIUM CHLORIDE 0.9% 1,000 ML IV SCH ×2 (07:35→13:21)
[2021-11-19 08:39] LABS: T4, Free (Free Thyroxine) 0.58 ng/dL (0.78-2.19)
[2021-11-19 13:33] LABS: Glucose,Whole Blood 60 mg/dL (75-99)
[2021-11-19] MEDS: DEXTROSE 5%-0.45% NACL 1,000 ML IV SCH ×2 (13:36→23:37)
[2021-11-19 14:16] LABS: Glucose,Whole Blood 76 mg/dL (75-99)
--- NOTE | 2021-11-19 14:57 | P.HPIM ---
History of Present Illness H&P Date: 11/18/21 Chief Complaint: Tired This is a pleasant 61-year-old patient, follows with Dr. Ashley. Chronic stable medical conditions include diabetes, GERD, hypertension dyslipidemia, hypothyroid, diet-controlled diabetes. Patient was discharged on October 13 patient is admitted with nausea vomiting with the swallowing. Food getting stuck. Was seen by psychiatry diagnosed with adjustment disorder. Acute kidney injury that improved. Patient for 2 days having decreased oral intake. Some nausea vomiting. Chills. Some left lower quadrant pain. No change in the urine pattern. Feeling rather weak tired rundown. No chest pain or shortness of breath. Sometimes feeling food getting stuck in the throat. Labs were abnormal in the ER including sodium BUN/creatinine potassium. Admitted with acute UTI with cystitis. Started on ceftriaxone, completed course with Keflex For nausea vomiting and food getting stuck patient underwent a barium swallow that showed presbyesophagus.. EGD by Dr. Fede Ortiz showed duodenitis. PPI added. Also complaining of pain in the right hip and right knee. X-rays were nonspecific. Seen by orthopedics. Voltaren gel and Tylenol ordered. Diagnosed to have adjustment disorder with low mood and Remeron was added by Dr. Peter Blank from psychiatry. Acute kidney injury. Creatinine improved from 1.97 down to 0.78 Patient now presents with poor appetite. Able to sleep okay. Constipated. No pain. He is lightheaded. Tired rundown. Feels still pills getting stuck in the throat sometimes. Decreased oral intake.. In the ER patient found to have low-sodium. Low glucose at 46. Low magnesium. Very weak and tired. Being admitted for the same. Currently no GI service available in the hospital. Patient states trouble swallowing has been coming on since July. Past medical history to include: Diabetes, GERD, hyperlipidemia, hypothyroid, Social history: Lives with . Did smoke in the past. No alcohol. Family history: Diabetes and hypertension Physical examination: VITAL SIGNS: 98.2, 82, 14, 119/65, 97% room air GENERAL: Thin built, loss of subcutaneous fat, BMI 23]. EYES: Pupils equal. Conjunctiva normal. HEENT: External appearance of nose and ears normal, oral cavity grossly normal. NECK: JVD not raised; masses not palpable. HEART: First and second heart sounds are normal; no edema. LUNGS: Respiratory rate normal; clear to auscultation. ABDOMEN: Soft, nontender, liver spleen not palpable, no masses palpable. PSYCH: Alert and oriented x3; mood and affect normal. MUSCULOSKELETAL:No Clubbing/cyanosis;muscles-grossly intact, OA NEUROLOGICAL: Cranial nerves grossly intact; no facial asymmetry, power and sensation grossly intact. LYMPHATICS: No lymph nodes palpable in the axilla and neck INVESTIGATIONS, reviewed in the clinical context: November 19: Sodium 129 potassium 4.3 White count 3.6 hemoglobin 10.5 platelets 184 sodium 127 BUN 14 creatinine 0.9 to blood glucose 46 calcium 10.4 magnesia 1.4 albumin 3.3 EKG tracing personally reviewed by me-normal sinus rhythm. Nonspecific T-wave changes. Chest x-ray film personally reviewed by me-no obvious infiltrate Recent investigations: EGD: Duodenitis. No pyloric stenosis October 10: Potassium 4.6 BUN 18 creatinine 1.20 bicarb 20 Barium swallow: Presbyesophagus. Question pyloric stenosis Computed tomography scan of the abdomen: Dependent stones in the gallbladder. Possible cyst in the liver.. Scattered diabetic changes. Fecal retention. Assessment and plan: -Severe dysphagia secondary to rest by esophagus diagnosed recently by barium swallow. Patient barely able to eat. Patient's recent EGD was unremarkable. Only option would be a PEG tube. No GI service is available in the hospital current -Clinical dehydration IV fluids -Severe hypoglycemia from decreased oral intake D5.45 IV fluids -Adjustment disorder with low mood Remeron 7.5 mg daily at bedtime -Duodenitis Protonix -Chronic idiopathic insomnia Melatonin 10 mg daily at bedtime -Hyperlipidemia Lipitor 40 mg daily -Hypothyroid Synthroid 88 g daily. -GERD Protonix -Hypercalcemia secondary to dehydration IV fluids -Hyponatremia, likely hypoosmolar: Increase salt intake D5.45. Fall precautions. Ensure. Continue home medications. Follow electrolytes. Given patient's severe weakness and electrolyte abnormalities.Given the complexity and severity of patient's condition expect the patient to be in the hospital at least for 2 overnights Past Medical History Past Medical History: Diabetes Mellitus, GERD/Reflux, Hyperlipidemia, Thyroid Disorder Additional Past Medical History / Comment(s): diet controlled diabetes, hypothyroid, food feeling "stuck" in throat History of Any Multi-Drug Resistant Organisms: None Reported Past Surgical History: Hysterectomy Past Psychological History: No Psychological Hx Reported Smoking Status: Former smoker Past Alcohol Use History: None Reported Past Drug Use History: None Reported - Past Family History Mother Family Medical History: Diabetes Mellitus, Hypertension Father Family Medical History: Diabetes Mellitus, Hypertension Medications and Allergies Home Medications Medication Instructions Recorded Confirmed Type Aspirin EC [Ecotrin Low Dose] 81 mg PO DAILY 10/08/21 11/18/21 History Atorvastatin [Lipitor] 40 mg PO DAILY 10/08/21 11/18/21 History Levothyroxine Sodium [Synthroid] 88 mcg PO DAILY 10/08/21 11/18/21 History Melatonin 10 mg PO HS 10/08/21 11/18/21 History Omeprazole 40 mg PO DAILY 10/08/21 11/18/21 History Ferrous Sulfate [Feosol] 650 mg PO DAILY 11/18/21 11/18/21 History Natual Calm Magnesium Citrate 1 tsp PO DAILY 11/18/21 11/18/21 History Powder Allergies Allergy/AdvReac Type Severity Reaction Status Date / Time bee venom protein (honey bee) Allergy Unknown Verified 11/18/21 16:10 diphenhydramine Allergy Unknown Verified 11/18/21 16:10 [From Benadryl] erythromycin base Allergy Unknown Verified 11/18/21 16:10 orange Allergy Unknown Verified 11/18/21 16:10 Sulfa (Sulfonamide Allergy Unknown Verified 11/18/21 16:10 Antibiotics) sulfacetamide AdvReac Unknown Verified 11/18/21 16:10 Physical Exam Vitals: Vital Signs Temp Pulse Pulse Pulse Pulse Pulse Resp 11/18/21 15:04 78 18 11/18/21 14:55 76 81 18 11/18/21 14:51 70 18 11/18/21 13:51 77 73 16 11/18/21 12:52 97.5 F L 73 18 BP BP BP BP Pulse Ox 11/18/21 15:04 151/56 98 11/18/21 14:55 115/69 92/60 128/80 99 11/18/21 14:51 128/80 98 11/18/21 13:51 100 11/18/21 12:52 146/75 100 Intake and Output 11/18/21 11/18/21 11/18/21 06:59 14:59 22:59 Other: Weight 60.9 kg Results CBC & Chem 7: 11/18/21 13:09 11/19/21 05:57 Labs: Abnormal Lab Results - Last 24 Hours (Table) 11/18/21 11/18/21 11/18/21 Range/Units 13:09 13:09 13:09 WBC 3.6 L (3.8-10.6) k/uL RBC 3.57 L (3.80-5.40) m/uL Hgb 10.5 L (11.4-16.0) gm/dL Hct 30.9 L (34.0-46.0) % APTT 30.2 H (22.0-30.0) sec Sodium 127 L (137-145) mmol/L Chloride 97 L (98-107) mmol/L Glucose 46 L* (74-99) mg/dL POC Glucose (mg/dL) (75-99) mg/dL Calcium 10.4 H (8.4-10.2) mg/dL Magnesium 1.4 L (1.6-2.3) mg/dL Total Protein 6.0 L (6.3-8.2) g/dL Albumin 3.3 L (3.5-5.0) g/dL 11/18/21 Range/Units 15:11 WBC (3.8-10.6) k/uL RBC (3.80-5.40) m/uL Hgb (11.4-16.0) gm/dL Hct (34.0-46.0) % APTT (22.0-30.0) sec Sodium (137-145) mmol/L Chloride (98-107) mmol/L Glucose (74-99) mg/dL POC Glucose (mg/dL) 158 H (75-99) mg/dL Calcium (8.4-10.2) mg/dL Magnesium (1.6-2.3) mg/dL Total Protein (6.3-8.2) g/dL Albumin (3.5-5.0) g/dL
--- NOTE | 2021-11-19 15:00 | P.PN ---
Progress Note - Text Progress Note Date: 11/19/21 Chief Complaint: Tired This is a pleasant 61-year-old patient, follows with Dr. Ashley. Chronic stable medical conditions include diabetes, GERD, hypertension dyslipidemia, hypothyroid, diet-controlled diabetes. Patient was discharged on October 13 patient is admitted with nausea vomiting with the swallowing. Food getting stuck. Was seen by psychiatry diagnosed with adjustment disorder. Acute kidney injury that improved. Patient for 2 days having decreased oral intake. Some nausea vomiting. Chills. Some left lower quadrant pain. No change in the urine pattern. Feeling rather weak tired rundown. No chest pain or shortness of breath. Sometimes feeling fo od getting stuck in the throat. Labs were abnormal in the ER including sodium BUN/creatinine potassium. Admitted with acute UTI with cystitis. Started on ceftriaxone, completed course with Keflex For nausea vomiting and food getting stuck patient underwent a barium swallow that showed presbyesophagus.. EGD by Dr. Fede Ortiz showed duodenitis. PPI added. Also complaining of pain in the right hip and right knee. X-rays were nonspecific. Seen by orthopedics. Voltaren gel and Tylenol ordered. Diagnosed to have adjustment disorder with low mood and Remeron was added by Dr. Peter Blank from psychiatry. Acute kidney injury. Creatinine improved from 1.97 down to 0.78 Patient now presents with poor appetite. Able to sleep okay. Constipated. No pain. He is lightheaded. Tired rundown. Feels still pills getting stuck in the throat sometimes. Decreased oral intake.. In the ER patient found to have low-sodium. Low glucose at 46. Low magnesium. Very weak and tired. Being admitted for the same. Currently no GI service available in the hospital. Patient states trouble swallowing has been coming on since July. November 19: Patient trouble with swallowing. Feels something getting stuck in the throat. We will consult ENT with a view to in direct laryngoscopy. Also discussed with the patient about possible PEG tube. She is not ready for the same. D5W. Active Medications Acetaminophen (Acetaminophen Tab 325 Mg Tab) 650 mg PO Q6HR PRN PRN Reason: Mild Pain or Fever > 100.5 Aspirin (Aspirin 81 Mg) 81 mg PO DAILY [facility] Last Admin: 11/19/21 07:34 Dose: 81 mg Documented by: Atorvastatin Calcium (Atorvastatin 40 Mg Tab) 40 mg PO DAILY [facility] Last Admin: 11/19/21 07:34 Dose: 40 mg Documented by: Calcium Carbonate/Glycine (Calcium Carbonate 500 Mg Chewable) 1,000 mg PO Q4HR PRN PRN Reason: Dyspepsia Enoxaparin Sodium (Enoxaparin 40 Mg/0.4 Ml Syringe) 40 mg SQ DAILY [facility] Last Admin: 11/19/21 07:34 Dose: 40 mg Documented by: Ferrous Sulfate (Ferrous Sulfate 325 Mg Tab) 650 mg PO DAILY [facility] Last Admin: 11/19/21 07:33 Dose: 650 mg Documented by: Dextrose/Sodium Chloride (Dextrose 5%-1/2ns Iv Soln) 1,000 mls @ 100 mls/hr IV .Q10H [facility] Last Admin: 11/19/21 13:36 Dose: 100 mls/hr Documented by: Lactulose (Lactulose 20 Gm/30 Ml Cup) 20 gm PO DAILY PRN PRN Reason: Constipation Lorazepam (Lorazepam 0.5 Mg Tab) 0.5 mg PO Q6HR PRN PRN Reason: Anxiety Magnesium Oxide (Magnesium Oxide 400 Mg Tab) 400 mg PO TID [facility] Melatonin (Melatonin 5 Mg Tablet) 10 mg PO HS [facility] Last Admin: 11/18/21 21:16 Dose: 10 mg Documented by: Naloxone HCl (Naloxone 0.4 Mg/Ml 1 Ml Vial) 0.2 mg IV Q2M PRN PRN Reason: Opioid Reversal Pantoprazole Sodium (Pantoprazole 40 Mg Tablet) 40 mg PO DAILY [facility] Last Admin: 11/19/21 07:34 Dose: 40 mg Documented by: Pramipexole Dihydrochloride (Pramipexole 0.25 Mg Tab) 0.25 mg PO [facility] Prochlorperazine Maleate (Prochlorperazine 5 Mg Tab) 5 mg PO Q8HR PRN PRN Reason: Nausea And Vomiting Past medical history to include: Diabetes, GERD, hyperlipidemia, hypothyroid, Social history: Lives with . Did smoke in the past. No alcohol. Family history: Diabetes and hypertension Physical examination: VITAL SIGNS: 98.2, 82, 14, 119/65, 97% room air GENERAL: Thin built, loss of subcutaneous fat, EYES: Pupils equal. Conjunctiva normal. HEENT: External appearance of nose and ears normal, oral cavity grossly normal. NECK: JVD not raised; masses not palpable. HEART: First and second heart sounds are normal; no edema. LUNGS: Respiratory rate normal; clear to auscultation. ABDOMEN: Soft, nontender, liver spleen not palpable, no masses palpable. PSYCH: Alert and oriented x3; mood and affect normal. MUSCULOSKELETAL:No Clubbing/cyanosis;muscles-grossly intact, OA. Loss of muscle mass INVESTIGATIONS, reviewed in the clinical context: November 19: Sodium 129 potassium 4.3 White count 3.6 hemoglobin 10.5 platelets 184 sodium 127 BUN 14 creatinine 0.9 to blood glucose 46 calcium 10.4 magnesia 1.4 albumin 3.3 EKG tracing personally reviewed by me-normal sinus rhythm. Nonspecific T-wave changes. Chest x-ray film personally reviewed by me-no obvious infiltrate Recent investigations: EGD: Duodenitis. No pyloric stenosis October 10: Potassium 4.6 BUN 18 creatinine 1.20 bicarb 20 Barium swallow: Presbyesophagus. Question pyloric stenosis Computed tomography scan of the abdomen: Dependent stones in the gallbladder. Possible cyst in the liver.. Scattered diabetic changes. Fecal retention. Assessment and plan: -Severe dysphagia secondary to rest by esophagus diagnosed recently by barium swallow. Patient barely able to eat.: Slow to respond. Patient's recent EGD was unremarkable. Only option would be a PEG tube. No GI service is available in the hospital current . We'll consult ENT with a view to in direct laryngoscopy. -Clinical dehydration IV fluids -Severe hypoglycemia from decreased oral intake: Slow to respond D5.45 IV fluids -Adjustment disorder with low mood Remeron 7.5 mg daily at bedtime -Duodenitis Protonix -Chronic idiopathic insomnia Melatonin 10 mg daily at bedtime -Hyperlipidemia Lipitor 40 mg daily -Hypothyroid Synthroid 88 g daily. -GERD Protonix -Hypercalcemia secondary to dehydration: Better IV fluids -Hyponatremia, likely hypoosmolar: Increase salt intake IV fluids D5.45. Continue soft diet. Consult ENT with a view to an direct laryngoscopy. PEG tube was discussed with the patient. Disinclined.
[2021-11-19] MEDS: MAGNESIUM OXIDE 400 MG TAB PO SCH ×2 (15:33→19:48)
[2021-11-19 16:45] LABS: Glucose,Whole Blood 105 mg/dL (75-99)
[2021-11-19] MEDS: MELATONIN 5 MG TABLET PO SCH (19:48)
[2021-11-19] MEDS: PRAMIPEXOLE 0.25 MG TAB PO SCH (19:48)
[2021-11-19 21:04] LABS: Glucose,Whole Blood 88 mg/dL (75-99)
[2021-11-20 07:29] LABS: Glucose,Whole Blood 87 mg/dL (75-99)
--- NOTE | 2021-11-20 09:58 | P.GSCN ---
History of Present Illness Consult date: 11/20/21 Reason for Consult: Pharyngeal Dysphagia Requesting physician: Ky Rivera History of present illness: This is a 61-year-old white female who is had 1-2 months of dysphagia. She tells me that food is stuck in her throat and points to the cricoid cartilage region centrally as to where the obstruction presents. She denies any hemoptysis. She only drinks liquids and eat semisolid foods. The dysphagia has been progressive over the last 1-2 months. She had a esophagoscopy by Dr. Veliz. There has been no radiologic workup per the patient. Nothing seems to make it better. She is unable to swallow pills or any solid food. She is losing weight because of this dysphagia. Review of Systems All systems: negative Past Medical History Past Medical History: Diabetes Mellitus, GERD/Reflux, Hyperlipidemia, Thyroid Disorder Additional Past Medical History / Comment(s): diet controlled diabetes, hypothyroid, food feeling "stuck" in throat History of Any Multi-Drug Resistant Organisms: None Reported Past Surgical History: Hysterectomy Past Psychological History: No Psychological Hx Reported Smoking Status: Former smoker Past Alcohol Use History: None Reported Past Drug Use History: None Reported - Past Family History Mother Family Medical History: Diabetes Mellitus, Hypertension Father Family Medical History: Diabetes Mellitus, Hypertension Medications and Allergies Home Medications Medication Instructions Recorded Confirmed Type Aspirin EC [Ecotrin Low Dose] 81 mg PO DAILY 10/08/21 11/18/21 History Atorvastatin [Lipitor] 40 mg PO DAILY 10/08/21 11/18/21 History Levothyroxine Sodium [Synthroid] 88 mcg PO DAILY 10/08/21 11/18/21 History Melatonin 10 mg PO HS 10/08/21 11/18/21 History Omeprazole 40 mg PO DAILY 10/08/21 11/18/21 History Ferrous Sulfate [Feosol] 650 mg PO DAILY 11/18/21 11/18/21 History Natual Calm Magnesium Citrate 1 tsp PO DAILY 11/18/21 11/18/21 History Powder Allergies Allergy/AdvReac Type Severity Reaction Status Date / Time bee venom protein (honey bee) Allergy Unknown Verified 11/18/21 16:10 diphenhydramine Allergy Unknown Verified 11/18/21 16:10 [From Benadryl] erythromycin base Allergy Unknown Verified 11/18/21 16:10 orange Allergy Unknown Verified 11/18/21 16:10 Sulfa (Sulfonamide Allergy Unknown Verified 11/18/21 16:10 Antibiotics) sulfacetamide AdvReac Unknown Verified 11/18/21 16:10 Surgical - Exam Osteopathic Statement: *. No significant issues noted on an osteopathic structural exam other than those noted in the History and Physical/Consult. Vital Signs Temp Pulse Resp BP Pulse Ox 97.5 F L 73 18 146/75 100 11/18/21 12:52 11/18/21 12:52 11/18/21 12:52 11/18/21 12:52 11/18/21 12:52 - General well developed, cachectic, chronically ill - Eyes PERRL, normal ocular movement - ENT Head is normocephalic the face is symmetric. There is no abnormal movements to the face. Sinuses are mastoids are nontender. Auricles are well-formed canals are clear the tympanic members are without bulging or retraction. Nose shows a deviated septum with inferior turbinate hypertrophy. Mucosa of the mouth appears pale. Neck shows no tumors or masses. normal pinna, normal nares, normal mucosa, no no congestion, deviated nasal septum - Neck no masses, no bruits, trachea midline, no lymphadectomy, no venous distension - Respiratory normal expansion, normal respiratory effort - Integumentary no rash, no growths, no abnormal pigmentation - Neurologic normal coordination, normal sensation - Musculoskeletal normal gait - Psychiatric oriented to time, oriented to person, oriented to place, speech is normal, memory intact Results - Labs 11/18/21 13:09 11/19/21 05:57 Abnormal Lab Results - Last 24 Hours (Table) 11/19/21 11/19/21 Range/Units 13:28 16:44 POC Glucose (mg/dL) 60 L 105 H (75-99) mg/dL Assessment and Plan (1) Dysphagia, pharyngeal phase Current Visit: Yes Status: Acute Code(s): R13.13 - DYSPHAGIA, PHARYNGEAL PHASE SNOMED Code(s): 15410340426798 Plan: Direct laryngoscopy today did not reveal any tumors or masses of the nasopharynx, oropharynx or hypopharynx. I'm unable to see the post cricoid space which should be evaluated with CAT scan imaging. I'm also recommending a modified barium swallow to assess her need for a PEG tube. I suspect she may have a musculoskeletal issue. Further imaging is needed. Further recommendations are pending the results of the imaging. Time with Patient: Greater than 30
[2021-11-20] MEDS: ATORVASTATIN 40 MG TAB PO SCH (09:59)
[2021-11-20] MEDS: ASPIRIN 81 MG PO SCH (09:59)
[2021-11-20] MEDS: PANTOPRAZOLE 40 MG TABLET PO SCH (09:59)
[2021-11-20] MEDS: ENOXAPARIN 40 MG/0.4 ML SYRINGE SQ SCH (09:59)
[2021-11-20] MEDS: FERROUS SULFATE 325 MG TAB PO SCH (09:59)
[2021-11-20] MEDS: MAGNESIUM OXIDE 400 MG TAB PO SCH ×3 (09:59→20:34)
--- NOTE | 2021-11-20 10:01 | P.OP ---
Date of Procedure: 11/20/21 Preoperative Diagnosis: pharyngeal dysphasia Postoperative Diagnosis: Same Procedure(s) Performed: Flexible Nasopharynolaryngoscopy Anesthesia: none Surgeon: Tony Morton Estimated Blood Loss (ml): 0 Pathology: none sent Condition: stable Disposition: floor Indications for Procedure: This patient has had 1-2 months of persistent dysphagia and points to the cricoid cartilage in the midline as to where she feels the dysphasia. Endoscopy is needed. Operative Findings: No signs of any tumors or masses of the nasopharynx oropharynx or hypopharynx. Patient's mucosa appears pale suspect anemia. I'm unable to see the post cricoid space I do recommend imaging. Description of Procedure: This patient was placed in a semirecumbent position and a 45 angle. An EF type GP nasopharyngoscope was inserted and the patient's left nares. The patient had a tremendous amount of nasal congestion. Entered the nasopharynx and was no signs of any nasopharyngeal pathology. The oropharynx reveals pale mucosa at the posterior aspect of the palate was unremarkable lateral pharynx posterior pharynx unremarkable. I then entered the hypopharynx reevaluated the base of tongue vallecula epiglottis lateral pharynx true and false vocal cords etc. and no pathology was noted. I was unable to see the postcricoid space.
[2021-11-20] MEDS: DEXTROSE 5%-0.45% NACL 1,000 ML IV SCH ×2 (11:24→21:49)
[2021-11-20 11:53] LABS: Glucose,Whole Blood 86 mg/dL (75-99)
--- NOTE | 2021-11-20 14:38 | CT ---
EXAMINATION TYPE: CT soft tissue neck w con DATE OF EXAM: 11/20/2021 1:26 PM COMPARISON: None available HISTORY: Dysphasia CT DLP: 228.4 mGycm Automated exposure control for dose reduction was used. CONTRAST: CT scan of the neck is performed following with IV Contrast, patient injected with 100 mL of Isovue 3 00. Axial images are obtained, coronal and sagittal reformatted images are reviewed. FINDINGS: The partially visualized intracranial structures and orbits appear unremarkable. The parotid glands and submandibular glands appear unremarkable. Thyroid gland has diffuse decreased attenuation and is not well visualized. Airway is patent without enhancing mucosal lesion. There is small amount of secretions within the air way on the right posteriorly at the level of the true vocal cords. No cervical lymphadenopathy or enlarged cervical chain lymph nodes. Mild mucosal thickening of the maxillary sinuses. Mastoid air cells are clear. There is poor dentitio n with multiple missing teeth, multiple dental caries, and multiple periapical lucencies of the remai emiliano mandibular teeth. No focal osseous lesion. Moderate multilevel degenerative changes of the cervical spine with reversal of the cervical lordosis centered at the level of C5. There are broad-based disc protrusions at the levels of C4-5 and C5-6 causing at least mild spinal canal stenosis. There is advanced facet arthropa thy the left level of C3-4 causing severe left neural foraminal narrowing. Small bilateral pleural effusions. There is thickening of the interlobular septa which may relate to fluid overload. IMPRESSION: No focal mass or lymphadenopathy.
--- NOTE | 2021-11-20 15:33 | P.PN ---
Progress Note - Text Progress Note Date: 11/20/21 Chief Complaint: Tired This is a pleasant 61-year-old patient, follows with Dr. Ashley. Chronic stable medical conditions include diabetes, GERD, hypertension dyslipidemia, hypothyroid, diet-controlled diabetes. Patient was discharged on October 13 patient is admitted with nausea vomiting with the swallowing. Food getting stuck. Was seen by psychiatry diagnosed with adjustment disorder. Acute kidney injury that improved. Patient for 2 days having decreased oral intake. Some nausea vomiting. Chills. Some left lower quadrant pain. No change in the urine pattern. Feeling rather weak tired rundown. No chest pain or shortness of breath. Sometimes feeling fo od getting stuck in the throat. Labs were abnormal in the ER including sodium BUN/creatinine potassium. Admitted with acute UTI with cystitis. Started on ceftriaxone, completed course with Keflex For nausea vomiting and food getting stuck patient underwent a barium swallow that showed presbyesophagus.. EGD by Dr. Fede Ortiz showed duodenitis. PPI added. Also complaining of pain in the right hip and right knee. X-rays were nonspecific. Seen by orthopedics. Voltaren gel and Tylenol ordered. Diagnosed to have adjustment disorder with low mood and Remeron was added by Dr. Peter Blank from psychiatry. Acute kidney injury. Creatinine improved from 1.97 down to 0.78 Patient now presents with poor appetite. Able to sleep okay. Constipated. No pain. He is lightheaded. Tired rundown. Feels still pills getting stuck in the throat sometimes. Decreased oral intake.. In the ER patient found to have low-sodium. Low glucose at 46. Low magnesium. Very weak and tired. Being admitted for the same. Currently no GI service available in the hospital. Patient states trouble swallowing has been coming on since July. November 19: Patient trouble with swallowing. Feels something getting stuck in the throat. We will consult ENT with a view to in direct laryngoscopy. Also discussed with the patient about possible PEG tube. She is not ready for the same. D5W. November 20: Patient was seen by Dr. Schwartz from ENT. Indirect laryngoscopy was unremarkable. Soft tissue neck CT was also unremarkable. Given that patient is poorly intake for quite a while. Losing weight. Discussed with the patient. Increase able to proceed with a PEG tube. Continues to have hypoglycemia. Active Medications Acetaminophen (Acetaminophen Tab 325 Mg Tab) 650 mg PO Q6HR PRN PRN Reason: Mild Pain or Fever > 100.5 Aspirin (Aspirin 81 Mg) 81 mg PO DAILY [facility] Last Admin: 11/20/21 09:59 Dose: 81 mg Documented by: Atorvastatin Calcium (Atorvastatin 40 Mg Tab) 40 mg PO DAILY [facility] Last Admin: 11/20/21 09:59 Dose: 40 mg Documented by: Calcium Carbonate/Glycine (Calcium Carbonate 500 Mg Chewable) 1,000 mg PO Q4HR PRN PRN Reason: Dyspepsia Enoxaparin Sodium (Enoxaparin 40 Mg/0.4 Ml Syringe) 40 mg SQ DAILY [facility] Last Admin: 11/20/21 09:59 Dose: 40 mg Documented by: Ferrous Sulfate (Ferrous Sulfate 325 Mg Tab) 650 mg PO DAILY [facility] Last Admin: 11/20/21 09:59 Dose: 650 mg Documented by: Dextrose/Sodium Chloride (Dextrose 5%-1/2ns Iv Soln) 1,000 mls @ 100 mls/hr IV .Q10H [facility] Last Admin: 11/20/21 11:24 Dose: Not Given Documented by: Lactulose (Lactulose 20 Gm/30 Ml Cup) 20 gm PO DAILY PRN PRN Reason: Constipation Lorazepam (Lorazepam 0.5 Mg Tab) 0.5 mg PO Q6HR PRN PRN Reason: Anxiety Magnesium Oxide (Magnesium Oxide 400 Mg Tab) 400 mg PO TID [facility] Last Admin: 11/20/21 09:59 Dose: 400 mg Documented by: Melatonin (Melatonin 5 Mg Tablet) 10 mg PO [facility] Last Admin: 11/19/21 19:48 Dose: 10 mg Documented by: Naloxone HCl (Naloxone 0.4 Mg/Ml 1 Ml Vial) 0.2 mg IV Q2M PRN PRN Reason: Opioid Reversal Pantoprazole Sodium (Pantoprazole 40 Mg Tablet) 40 mg PO DAILY [facility] Last Admin: 11/20/21 09:59 Dose: 40 mg Documented by: Pramipexole Dihydrochloride (Pramipexole 0.25 Mg Tab) 0.25 mg PO [facility] Last Admin: 11/19/21 19:48 Dose: 0.25 mg Documented by: Prochlorperazine Maleate (Prochlorperazine 5 Mg Tab) 5 mg PO Q8HR PRN PRN Reason: Nausea And Vomiting Past medical history to include: Diabetes, GERD, hyperlipidemia, hypothyroid, Social history: Lives with . Did smoke in the past. No alcohol. Family history: Diabetes and hypertension Physical examination: VITAL SIGNS: 98.5, 77, 14, 103/53, 92% room air GENERAL: Thin built, loss of subcutaneous fat, EYES: Pupils equal. Conjunctiva normal. HEENT: External appearance of nose and ears normal, oral cavity grossly normal. NECK: JVD not raised; masses not palpable. HEART: First and second heart sounds are normal; no edema. LUNGS: Respiratory rate normal; clear to auscultation. ABDOMEN: Soft, nontender, liver spleen not palpable, no masses palpable. PSYCH: Alert and oriented x3; mood and affect normal. MUSCULOSKELETAL:No Clubbing/cyanosis;muscles-grossly intact, OA. Loss of muscle mass INVESTIGATIONS, reviewed in the clinical context: November 19: Sodium 129 potassium 4.3 White count 3.6 hemoglobin 10.5 platelets 184 sodium 127 BUN 14 creatinine 0.9 to blood glucose 46 calcium 10.4 magnesia 1.4 albumin 3.3 EKG tracing personally reviewed by me-normal sinus rhythm. Nonspecific T-wave changes. Chest x-ray film personally reviewed by me-no obvious infiltrate Recent investigations: EGD: Duodenitis. No pyloric stenosis October 10: Potassium 4.6 BUN 18 creatinine 1.20 bicarb 20 Barium swallow: Presbyesophagus. Question pyloric stenosis Computed tomography scan of the abdomen: Dependent stones in the gallbladder. Possible cyst in the liver.. Scattered diabetic changes. Fecal retention. Assessment and plan: -Severe dysphagia secondary to rest by esophagus diagnosed recently by barium swallow. Patient barely able to eat.: Slow to respond. Patient's recent EGD was unremarkable. Only option would be a PEG tube. Indirect laryngoscopy unremarkable. Soft tissue CT of the neck unremarkable. Patient agreeable to PEG tube. -Clinical dehydration IV fluids -Severe hypoglycemia from decreased oral intake: Slow to respond D5.45 IV fluids -Adjustment disorder with low mood Remeron 7.5 mg daily at bedtime -Duodenitis Protonix -Chronic idiopathic insomnia Melatonin 10 mg daily at bedtime -Hyperlipidemia Lipitor 40 mg daily -Hypothyroid Synthroid 88 g daily. -GERD Protonix -Hypercalcemia secondary to dehydration: Better IV fluids -Hyponatremia, likely hypoosmolar: Increase salt intake ENT workup negative. Discussed with patient. Proceed with PEG tube. Consult surgery for tube placement.
[2021-11-20 16:50] LABS: Glucose,Whole Blood 81 mg/dL (75-99)
[2021-11-20 20:25] LABS: Glucose,Whole Blood 83 mg/dL (75-99)
[2021-11-20] MEDS: MELATONIN 5 MG TABLET PO SCH (20:34)
[2021-11-20] MEDS: PRAMIPEXOLE 0.25 MG TAB PO SCH (20:34)
[2021-11-21 06:42] LABS: Glucose,Whole Blood 86 mg/dL (75-99)
[2021-11-21] MEDS: PANTOPRAZOLE 40 MG TABLET PO SCH (08:21)
[2021-11-21] MEDS: FERROUS SULFATE 325 MG TAB PO SCH (08:21)
[2021-11-21] MEDS: ENOXAPARIN 40 MG/0.4 ML SYRINGE SQ SCH (08:21)
[2021-11-21] MEDS: MAGNESIUM OXIDE 400 MG TAB PO SCH ×3 (08:21→21:37)
[2021-11-21] MEDS: ATORVASTATIN 40 MG TAB PO SCH (08:21)
[2021-11-21] MEDS: ASPIRIN 81 MG PO SCH (08:21)
[2021-11-21] MEDS: DEXTROSE 5%-0.45% NACL 1,000 ML IV SCH ×3 (09:07→21:37)
[2021-11-21 11:12] LABS: Glucose,Whole Blood 70 mg/dL (75-99)
--- NOTE | 2021-11-21 12:05 | P.PN ---
Progress Note - Text Progress Note Date: 11/21/21 Chief Complaint: Tired This is a pleasant 61-year-old patient, follows with Dr. Ashley. Chronic stable medical conditions include diabetes, GERD, hypertension dyslipidemia, hypothyroid, diet-controlled diabetes. Patient was discharged on October 13 patient is admitted with nausea vomiting with the swallowing. Food getting stuck. Was seen by psychiatry diagnosed with adjustment disorder. Acute kidney injury that improved. Patient for 2 days having decreased oral intake. Some nausea vomiting. Chills. Some left lower quadrant pain. No change in the urine pattern. Feeling rather weak tired rundown. No chest pain or shortness of breath. Sometimes feeling fo od getting stuck in the throat. Labs were abnormal in the ER including sodium BUN/creatinine potassium. Admitted with acute UTI with cystitis. Started on ceftriaxone, completed course with Keflex For nausea vomiting and food getting stuck patient underwent a barium swallow that showed presbyesophagus.. EGD by Dr. Fede Ortiz showed duodenitis. PPI added. Also complaining of pain in the right hip and right knee. X-rays were nonspecific. Seen by orthopedics. Voltaren gel and Tylenol ordered. Diagnosed to have adjustment disorder with low mood and Remeron was added by Dr. Peter Blank from psychiatry. Acute kidney injury. Creatinine improved from 1.97 down to 0.78 Patient now presents with poor appetite. Able to sleep okay. Constipated. No pain. He is lightheaded. Tired rundown. Feels still pills getting stuck in the throat sometimes. Decreased oral intake.. In the ER patient found to have low-sodium. Low glucose at 46. Low magnesium. Very weak and tired. Being admitted for the same. Currently no GI service available in the hospital. Patient states trouble swallowing has been coming on since July. November 19: Patient trouble with swallowing. Feels something getting stuck in the throat. We will consult ENT with a view to in direct laryngoscopy. Also discussed with the patient about possible PEG tube. She is not ready for the same. D5W. November 20: Patient was seen by Dr. Schwartz from ENT. Indirect laryngoscopy was unremarkable. Soft tissue neck CT was also unremarkable. Given that patient is poorly intake for quite a while. Losing weight. Discussed with the patient. Increase able to proceed with a PEG tube. Continues to have hypoglycemia. November 21: Discussed with Dr. Carranza. Patient being scheduled for PEG tube. Barium swallow ordered by ENT. Discussed with the patient. Still unable to eat. Tired. Active Medications Acetaminophen (Acetaminophen Tab 325 Mg Tab) 650 mg PO Q6HR PRN PRN Reason: Mild Pain or Fever > 100.5 Aspirin (Aspirin 81 Mg) 81 mg PO DAILY [facility] Last Admin: 11/21/21 08:21 Dose: Not Given Documented by: Atorvastatin Calcium (Atorvastatin 40 Mg Tab) 40 mg PO DAILY [facility] Last Admin: 11/21/21 08:21 Dose: Not Given Documented by: Calcium Carbonate/Glycine (Calcium Carbonate 500 Mg Chewable) 1,000 mg PO Q4HR PRN PRN Reason: Dyspepsia Enoxaparin Sodium (Enoxaparin 40 Mg/0.4 Ml Syringe) 40 mg SQ DAILY [facility] Last Admin: 11/21/21 08:21 Dose: 40 mg Documented by: Ferrous Sulfate (Ferrous Sulfate 325 Mg Tab) 650 mg PO DAILY [facility] Last Admin: 11/21/21 08:21 Dose: Not Given Documented by: Dextrose/Sodium Chloride (Dextrose 5%-1/2ns Iv Soln) 1,000 mls @ 100 mls/hr IV .Q10H [facility] Last Admin: 11/21/21 09:08 Dose: Not Given Documented by: Lactulose (Lactulose 20 Gm/30 Ml Cup) 20 gm PO DAILY PRN PRN Reason: Constipation Lorazepam (Lorazepam 0.5 Mg Tab) 0.5 mg PO Q6HR PRN PRN Reason: Anxiety Magnesium Oxide (Magnesium Oxide 400 Mg Tab) 400 mg PO TID [facility] Last Admin: 11/21/21 08:21 Dose: Not Given Documented by: Melatonin (Melatonin 5 Mg Tablet) 10 mg PO HS [facility] Last Admin: 11/20/21 20:34 Dose: 10 mg Documented by: Naloxone HCl (Naloxone 0.4 Mg/Ml 1 Ml Vial) 0.2 mg IV Q2M PRN PRN Reason: Opioid Reversal Pantoprazole Sodium (Pantoprazole 40 Mg Tablet) 40 mg PO DAILY [facility] Last Admin: 11/21/21 08:21 Dose: Not Given Documented by: Pramipexole Dihydrochloride (Pramipexole 0.25 Mg Tab) 0.25 mg PO [facility] Last Admin: 11/20/21 20:34 Dose: 0.25 mg Documented by: Prochlorperazine Maleate (Prochlorperazine 5 Mg Tab) 5 mg PO Q8HR PRN PRN Reason: Nausea And Vomiting Past medical history to include: Diabetes, GERD, hyperlipidemia, hypothyroid, Social history: Lives with . Did smoke in the past. No alcohol. Family history: Diabetes and hypertension Physical examination: VITAL SIGNS: Afebrile, 70, 18, 1 22 x 64, 94% room air GENERAL: Thin built, loss of subcutaneous fat, tired EYES: Pupils equal. Conjunctiva normal. HEENT: External appearance of nose and ears normal, oral cavity grossly normal. NECK: JVD not raised; masses not palpable. HEART: First and second heart sounds are normal; no edema. LUNGS: Respiratory rate normal; clear to auscultation. ABDOMEN: Soft, nontender, liver spleen not palpable, no masses palpable. PSYCH: Alert and oriented x3; mood and affect normal. MUSCULOSKELETAL:No Clubbing/cyanosis;muscles-grossly intact, OA. Loss of muscle mass INVESTIGATIONS, reviewed in the clinical context: November 19: Sodium 129 potassium 4.3 White count 3.6 hemoglobin 10.5 platelets 184 sodium 127 BUN 14 creatinine 0.9 to blood glucose 46 calcium 10.4 magnesia 1.4 albumin 3.3 EKG tracing personally reviewed by me-normal sinus rhythm. Nonspecific T-wave changes. Chest x-ray film personally reviewed by me-no obvious infiltrate Recent investigations: EGD: Duodenitis. No pyloric stenosis October 10: Potassium 4.6 BUN 18 creatinine 1.20 bicarb 20 Barium swallow: Presbyesophagus. Question pyloric stenosis Computed tomography scan of the abdomen: Dependent stones in the gallbladder. Possible cyst in the liver.. Scattered diabetic changes. Fecal retention. Assessment and plan: -Severe dysphagia secondary to rest by esophagus diagnosed recently by barium swallow. Patient barely able to eat.: Slow to respond. Patient's recent EGD was unremarkable. Only option would be a PEG tube. Indirect laryngoscopy unremarkable. Soft tissue CT of the neck unremarkable. Patient agreeable to PEG tube. -Clinical dehydration IV fluids -Severe hypoglycemia from decreased oral intake: Slow to respond D5.45 IV fluids -Adjustment disorder with low mood Remeron 7.5 mg daily at bedtime -Duodenitis Protonix -Chronic idiopathic insomnia Melatonin 10 mg daily at bedtime -Hyperlipidemia Lipitor 40 mg daily -Hypothyroid Synthroid 88 g daily. -GERD Protonix -Hypercalcemia secondary to dehydration: Better IV fluids -Hyponatremia, likely hypoosmolar: Increase salt intake ENT ordered barium swallow. Discussed with patient. Discussed with surgery in the nurse. PEG tube pending. Pro time spent about 40 minutes with over 25 minutes of discussion.
--- NOTE | 2021-11-21 14:49 | P.PN ---
Progress Note - Text Progress Note Date: 11/21/[address] Del Rosario. Patient was seen by him earlier this morning. He states he will be filling out the consult. We'll proceed with EGD and PEG tube placement tomorrow. Discussed with family at bedside.
[2021-11-21 16:08] LABS: Glucose,Whole Blood 98 mg/dL (75-99)
--- NOTE | 2021-11-21 16:11 | P.GSCN ---
History of Present Illness Consult date: 11/21/21 History of present illness: 61-year-old female presents to the emergency department with overall feeling of weakness, lightheadedness and poor appetite. She had a recent admission secondary to these issues and states that she has been having difficulty swallowing and feels that pills are getting stuck in her throat. She did undergo an EGD by gastroenterology with no significant finding outside of duodenitis. She did have a barium swallow at that time showing presbyesophagus. Currently, patient states that she is not tolerating any oral intake. She is losing weight. She does have some electrolyte abnormalities secondary to this. Surgery was consulted for PEG tube placement. Review of Systems All systems: negative Past Medical History Past Medical History: Diabetes Mellitus, GERD/Reflux, Hyperlipidemia, Thyroid Disorder Additional Past Medical History / Comment(s): diet controlled diabetes, hypothyroid, food feeling "stuck" in throat History of Any Multi-Drug Resistant Organisms: None Reported Past Surgical History: Hysterectomy Past Psychological History: No Psychological Hx Reported Smoking Status: Former smoker Past Alcohol Use History: None Reported Past Drug Use History: None Reported - Past Family History Mother Family Medical History: Diabetes Mellitus, Hypertension Father Family Medical History: Diabetes Mellitus, Hypertension Medications and Allergies Home Medications Medication Instructions Recorded Confirmed Type Aspirin EC [Ecotrin Low Dose] 81 mg PO DAILY 10/08/21 11/18/21 History Atorvastatin [Lipitor] 40 mg PO DAILY 10/08/21 11/18/21 History Levothyroxine Sodium [Synthroid] 88 mcg PO DAILY 10/08/21 11/18/21 History Melatonin 10 mg PO HS 10/08/21 11/18/21 History Omeprazole 40 mg PO DAILY 10/08/21 11/18/21 History Ferrous Sulfate [Feosol] 650 mg PO DAILY 11/18/21 11/18/21 History Natual Calm Magnesium Citrate 1 tsp PO DAILY 11/18/21 11/18/21 History Powder Allergies Allergy/AdvReac Type Severity Reaction Status Date / Time bee venom protein (honey bee) Allergy Unknown Verified 11/18/21 16:10 diphenhydramine Allergy Unknown Verified 11/18/21 16:10 [From Benadryl] erythromycin base Allergy Unknown Verified 11/18/21 16:10 orange Allergy Unknown Verified 11/18/21 16:10 Sulfa (Sulfonamide Allergy Unknown Verified 11/18/21 16:10 Antibiotics) sulfacetamide AdvReac Unknown Verified 11/18/21 16:10 Surgical - Exam Osteopathic Statement: *. No significant issues noted on an osteopathic structural exam other than those noted in the History and Physical/Consult. Vital Signs Temp Pulse Resp BP Pulse Ox 97.5 F L 73 18 146/75 100 11/18/21 12:52 11/18/21 12:52 11/18/21 12:52 11/18/21 12:52 11/18/21 12:52 - General no distress - ENT no hearing loss - Neck trachea midline - Respiratory normal respiratory effort - Abdomen Abdomen: soft, non tender Results - Labs 11/18/21 13:09 11/19/21 05:57 Abnormal Lab Results - Last 24 Hours (Table) 11/21/21 Range/Units 11:10 POC Glucose (mg/dL) 70 L (75-99) mg/dL Assessment and Plan Plan: 61-year-old female with presbyesophagus and difficulty tolerating oral intake with significant weight loss. Plan will be for PEG tube placement after barium swallow is completed. Case was discussed with Dr. Pérez. He will be performing PEG tube placement. Family and patient are in agreement.
[2021-11-21 20:22] LABS: Glucose,Whole Blood 71 mg/dL (75-99)
[2021-11-21] MEDS: ACETAMINOPHEN TAB 325 MG TAB PO PRN (21:37)
[2021-11-21] MEDS: PRAMIPEXOLE 0.25 MG TAB PO SCH (21:37)
[2021-11-21] MEDS: MELATONIN 5 MG TABLET PO SCH (21:37)
[2021-11-22] MEDS: ENOXAPARIN 40 MG/0.4 ML SYRINGE SQ SCH (00:29)
[2021-11-22 06:41] LABS: Glucose,Whole Blood 78 mg/dL (75-99)
[2021-11-22] MEDS: PANTOPRAZOLE 40 MG TABLET PO SCH (08:02)
[2021-11-22] MEDS: MAGNESIUM OXIDE 400 MG TAB PO SCH ×3 (08:02→21:45)
[2021-11-22] MEDS: ATORVASTATIN 40 MG TAB PO SCH (08:02)
[2021-11-22] MEDS: ASPIRIN 81 MG PO SCH (08:02)
[2021-11-22] MEDS: FERROUS SULFATE 325 MG TAB PO SCH (08:02)
[2021-11-22] MEDS: DEXTROSE 5%-0.45% NACL 1,000 ML IV SCH ×2 (08:03→17:26)
[2021-11-22 10:12] LABS: Glucose,Whole Blood 86 mg/dL (75-99)
[2021-11-22] MEDS: PROCHLORPERAZINE 5 MG TAB PO PRN (10:20)
[2021-11-22 11:06] LABS: Glucose,Whole Blood 84 mg/dL (75-99)
[2021-11-22] MEDS ORDERED: LIDOCAINE 1% INJ 10MG/ML (20 ML MDV) ONE (11:38)
[2021-11-22] MEDS ORDERED: ceFAZolin 1,000 MG VIAL ONE (11:38)
[2021-11-22] MEDS ORDERED: SODIUM CHLORIDE 0.9% 100 ML BAG ONE (11:38)
[2021-11-22] MEDS ORDERED: PROPOFOL 10 MG/ML 20 ML VIAL IV ONE (11:38)
[2021-11-22] MEDS ORDERED: IV FLUID CONTINUATION 1,000 ML IV ONE (11:44)
--- NOTE | 2021-11-22 11:54 | P.PCN ---
Date of Procedure: 11/22/21 Procedure(s) Performed: PREOPERATIVE DIAGNOSIS: Malnutrition, dysphagia POSTOPERATIVE DIAGNOSIS: Same PROCEDURE: EGD with PEG tube placement SURGEON: Beto EBL: Minimal ANESTHESIA: Sedation COMPLICATIONS: None OPERATIVE PROCEDURE: The patient was placed in the supine position on the endoscopy table. The patient was sedated per anesthesia that time. The Olympus gastroscope was inserted into the oropharynx and passed under direct visualization to the region of the duodenum. No obstruction was seen. The pylorus was widely patent. The stomach was carefully inspected. The stomach was fully insufflated with air. The abdominal wall was inspected. The light was seen shining through the abdominal wall in the left upper quadrant. This site was chosen for PEG tube placement. The area was prepped in the usual sterile fashion. This area was then localized with lidocaine. No air was evident when aspirating while advancing the localizing needle into the stomach until the stomach was reached. A small vertical incision was made using the scalpel. The Seldinger needle was advanced into the lumen of the stomach the wire was advanced. The wire was grasped with an endoscopic snare. The wire was pulled through the oropharynx. The catheter was then threaded over the guidewire and the guidewire and catheter were pulled anteriorly until the hub of the PEG tube catheter was seated against the anterior wall the stomach. The circular bolster was applied and tightened down. The endoscope was then readvanced into the stomach. There was no evidence of any bleeding and there was appropriate tightness on the bolster. The catheter was cut appropriately. The dual port feeding adapter was applied. DISPOSITION: Stable to recovery room
[2021-11-22] MEDS: MORPHINE SULFATE 4 MG/ML SYRINGE IVP PRN ×2 (13:00→16:30)
--- NOTE | 2021-11-22 16:00 | P.PN ---
Progress Note - Text Progress Note Date: 11/22/21 Chief Complaint: Tired This is a pleasant 61-year-old patient, follows with Dr. Ashley. Chronic stable medical conditions include diabetes, GERD, hypertension dyslipidemia, hypothyroid, diet-controlled diabetes. Patient was discharged on October 13 patient is admitted with nausea vomiting with the swallowing. Food getting stuck. Was seen by psychiatry diagnosed with adjustment disorder. Acute kidney injury that improved. Patient for 2 days having decreased oral intake. Some nausea vomiting. Chills. Some left lower quadrant pain. No change in the urine pattern. Feeling rather weak tired rundown. No chest pain or shortness of breath. Sometimes feeling fo od getting stuck in the throat. Labs were abnormal in the ER including sodium BUN/creatinine potassium. Admitted with acute UTI with cystitis. Started on ceftriaxone, completed course with Keflex For nausea vomiting and food getting stuck patient underwent a barium swallow that showed presbyesophagus.. EGD by Dr. Fede Ortiz showed duodenitis. PPI added. Also complaining of pain in the right hip and right knee. X-rays were nonspecific. Seen by orthopedics. Voltaren gel and Tylenol ordered. Diagnosed to have adjustment disorder with low mood and Remeron was added by Dr. Peter Blank from psychiatry. Acute kidney injury. Creatinine improved from 1.97 down to 0.78 Patient now presents with poor appetite. Able to sleep okay. Constipated. No pain. He is lightheaded. Tired rundown. Feels still pills getting stuck in the throat sometimes. Decreased oral intake.. In the ER patient found to have low-sodium. Low glucose at 46. Low magnesium. Very weak and tired. Being admitted for the same. Currently no GI service available in the hospital. Patient states trouble swallowing has been coming on since July. November 19: Patient trouble with swallowing. Feels something getting stuck in the throat. We will consult ENT with a view to in direct laryngoscopy. Also discussed with the patient about possible PEG tube. She is not ready for the same. D5W. November 20: Patient was seen by Dr. Schwartz from ENT. Indirect laryngoscopy was unremarkable. Soft tissue neck CT was also unremarkable. Given that patient is poorly intake for quite a while. Losing weight. Discussed with the patient. Increase able to proceed with a PEG tube. Continues to have hypoglycemia. November 21: Discussed with Dr. Carranza. Patient being scheduled for PEG tube. Barium swallow ordered by ENT. Discussed with the patient. Still unable to eat. Tired. November 22: Spoke to upper caser this morning about indication for PEG tube results of barium swallow. To be forwarded insurance company. Later patient underwent EGD PEG tube placement with Dr. Carranza. Dietitian consulted for PEG tube feeding. Hypoglycemic last night. Active Medications Acetaminophen (Acetaminophen Tab 325 Mg Tab) 650 mg PO Q6HR PRN PRN Reason: Mild Pain or Fever > 100.5 Last Admin: 11/21/21 21:37 Dose: 650 mg Documented by: Aspirin (Aspirin 81 Mg) 81 mg PO DAILY [facility] Last Admin: 11/22/21 08:02 Dose: Not Given Documented by: Atorvastatin Calcium (Atorvastatin 40 Mg Tab) 40 mg PO DAILY [facility] Last Admin: 11/22/21 08:02 Dose: Not Given Documented by: Calcium Carbonate/Glycine (Calcium Carbonate 500 Mg Chewable) 1,000 mg PO Q4HR PRN PRN Reason: Dyspepsia Enoxaparin Sodium (Enoxaparin 40 Mg/0.4 Ml Syringe) 40 mg SQ DAILY [facility] Last Admin: 11/22/21 00:29 Dose: Not Given Documented by: Ferrous Sulfate (Ferrous Sulfate 325 Mg Tab) 650 mg PO DAILY [facility] Last Admin: 11/22/21 08:02 Dose: Not Given Documented by: Dextrose/Sodium Chloride (Dextrose 5%-1/2ns Iv Soln) 1,000 mls @ 100 mls/hr IV .Q10H [facility] Last Admin: 11/22/21 08:03 Dose: 100 mls/hr Documented by: Lactulose (Lactulose 20 Gm/30 Ml Cup) 20 gm PO DAILY PRN PRN Reason: Constipation Lorazepam (Lorazepam 0.5 Mg Tab) 0.5 mg PO Q6HR PRN PRN Reason: Anxiety Magnesium Oxide (Magnesium Oxide 400 Mg Tab) 400 mg PO TID [facility] Last Admin: 11/22/21 08:03 Dose: Not Given Documented by: Melatonin (Melatonin 5 Mg Tablet) 10 mg PO HS [facility] Last Admin: 11/21/21 21:37 Dose: 10 mg Documented by: Morphine Sulfate (Morphine Sulfate 4 Mg/Ml Syringe) 4 mg IVP Q3HR PRN PRN Reason: SEVERE Pain Last Admin: 11/22/21 13:00 Dose: 4 mg Documented by: Naloxone HCl (Naloxone 0.4 Mg/Ml 1 Ml Vial) 0.2 mg IV Q2M PRN PRN Reason: Opioid Reversal Pantoprazole Sodium (Pantoprazole 40 Mg Tablet) 40 mg PO DAILY [facility] Last Admin: 11/22/21 08:02 Dose: Not Given Documented by: Pramipexole Dihydrochloride (Pramipexole 0.25 Mg Tab) 0.25 mg PO HS [facility] Last Admin: 11/21/21 21:37 Dose: 0.25 mg Documented by: Prochlorperazine Maleate (Prochlorperazine 5 Mg Tab) 5 mg PO Q8HR PRN PRN Reason: Nausea And Vomiting Last Admin: 11/22/21 10:20 Dose: 5 mg Documented by: Past medical history to include: Diabetes, GERD, hyperlipidemia, hypothyroid, Social history: Lives with . Did smoke in the past. No alcohol. Family history: Diabetes and hypertension Physical examination: VITAL SIGNS: 97.9, 75, 17, 120/67, GENERAL: Thin built, loss of subcutaneous fat, tired EYES: Pupils equal. Conjunctiva normal. HEENT: External appearance of nose and ears normal, oral cavity grossly normal. NECK: JVD not raised; masses not palpable. HEART: First and second heart sounds are normal; no edema. LUNGS: Respiratory rate normal; clear to auscultation. ABDOMEN: Soft, nontender, liver spleen not palpable, no masses palpable. PEG tube PSYCH: Alert and oriented x3; mood and affect normal. MUSCULOSKELETAL:No Clubbing/cyanosis;muscles-grossly intact, OA. Loss of muscle mass INVESTIGATIONS, reviewed in the clinical context: November 19: Sodium 129 potassium 4.3 White count 3.6 hemoglobin 10.5 platelets 184 sodium 127 BUN 14 creatinine 0.9 to blood glucose 46 calcium 10.4 magnesia 1.4 albumin 3.3 EKG tracing personally reviewed by me-normal sinus rhythm. Nonspecific T-wave changes. Chest x-ray film personally reviewed by me-no obvious infiltrate Recent investigations: EGD: Duodenitis. No pyloric stenosis October 10: Potassium 4.6 BUN 18 creatinine 1.20 bicarb 20 Barium swallow: Presbyesophagus. Question pyloric stenosis Computed tomography scan of the abdomen: Dependent stones in the gallbladder. Possible cyst in the liver.. Scattered diabetic changes. Fecal retention. Assessment and plan: -Severe dysphagia secondary to rest by esophagus diagnosed recently by barium swallow. Patient barely able to eat.: Slow to respond. Patient's recent EGD was unremarkable. Indirect laryngoscopy unremarkable. Soft tissue CT of the neck unremarkable. November 22 PEG tube placed by Dr. Carranza -Clinical dehydration IV fluids -Severe hypoglycemia from decreased oral intake: Slow to respond D5.45 IV fluids -Adjustment disorder with low mood Remeron 7.5 mg daily at bedtime -Duodenitis Protonix -Chronic idiopathic insomnia Melatonin 10 mg daily at bedtime -Hyperlipidemia Lipitor 40 mg daily -Hypothyroid Synthroid 88 g daily. -GERD Protonix -Hypercalcemia secondary to dehydration: Better IV fluids -Hyponatremia, likely hypoosmolar: Increase salt intake PEG tube placed. Medications to continue. Dietitian to start 2 feeding tomorrow.
[2021-11-22 16:27] LABS: Glucose,Whole Blood 66 mg/dL (75-99)
[2021-11-22 16:44] LABS: Glucose,Whole Blood 65 mg/dL (75-99)
[2021-11-22 17:03] LABS: Glucose,Whole Blood 66 mg/dL (75-99)
[2021-11-22] MEDS ORDERED: DEXTROSE 50% SYRINGE 50 ML IVP STA (17:12)
[2021-11-22 17:33] LABS: Glucose,Whole Blood 138 mg/dL (75-99)
[2021-11-22 21:20] LABS: Glucose,Whole Blood 90 mg/dL (75-99)
[2021-11-22] MEDS: ACETAMINOPHEN TAB 325 MG TAB PO PRN (21:45)
[2021-11-22] MEDS: MELATONIN 5 MG TABLET PO SCH (21:45)
[2021-11-22] MEDS: PRAMIPEXOLE 0.25 MG TAB PO SCH (21:45)
[2021-11-23 03:35] LABS: Glucose,Whole Blood 72 mg/dL (75-99)
[2021-11-23] MEDS ORDERED: SODIUM CHLORIDE 0.9% 1,000 ML IV ONE (04:39)
--- NOTE | 2021-11-23 05:13 | XR ---
EXAMINATION TYPE: XR chest 1V DATE OF EXAM: 11/23/2021 COMPARISON: 11/18/2021 HISTORY: Short of breath TECHNIQUE: Single view FINDINGS: There is some blunting of the costophrenic angles. Heart is enlarged. There is some mild in filtrate and atelectasis at the lung bases. There is mild pulmonary congestion. IMPRESSION: There is evidence for some congestive heart failure with pleural effusions and this appea rs new compared to recent exam.
[2021-11-23 06:48] LABS: Glucose,Whole Blood 82 mg/dL (75-99)
[2021-11-23] MEDS: ENOXAPARIN 40 MG/0.4 ML SYRINGE SQ SCH (09:11)
[2021-11-23] MEDS: MAGNESIUM OXIDE 400 MG TAB PO SCH ×3 (09:12→21:47)
[2021-11-23] MEDS: ATORVASTATIN 40 MG TAB PO SCH (09:12)
[2021-11-23] MEDS: PANTOPRAZOLE 40 MG TABLET PO SCH (09:12)
[2021-11-23] MEDS: ASPIRIN 81 MG PO SCH (09:12)
[2021-11-23] MEDS: DEXTROSE 5%-0.45% NACL 1,000 ML IV SCH ×2 (09:30→22:50)
[2021-11-23] MEDS: MIDODRINE 5 MG TAB PO SCH ×3 (11:04→19:43)
[2021-11-23 11:33] LABS: Glucose,Whole Blood 73 mg/dL (75-99)
[2021-11-23] MEDS: FERROUS SULFATE 325 MG TAB PO SCH (11:44)
[2021-11-23] MEDS: FERROUS SULFATE ORAL ELIXIR 300 MG/5 ML CUP PO SCH (14:03)
--- NOTE | 2021-11-23 14:05 | CDI ---
Documentation Clarification Form Date: 11/23/2021 01:54:30 PM From: Ritika Marks CCS, CCDS Admit Date: 11/18/2021 04:15:00 PM Patient Name: Sagrario Salvador Visit Number: [id number] Discharge Date: ATTENTION: The Clinical Documentation Specialists (CDI) and [facility] Coding Staff appreciate your assistance in clarifying documentation. Please respond to the clarification below the line at the bottom and electronically sign. The CDI & [facility] Coding staff will review the response and follow-up if needed. Please note: Queries are made part of the Legal Health Record. If you have any questions, please contact the author of this message via ITS. Dr. Prince Pérez: Malnutrition is documented in the 11/22 Procedure Note for PEG Tube placement without further specificity. Additional clarification regarding the severity of malnutrition is requested. History/Risk Factors per the 11/18 H/P: Diabetes Mellitus, GERD, Hyperlipidemia, Hypothyroid, Former smoker. Clinical Indicators: Presented to the ED via EMS from physician office with Weakness, Tired, Nausea & Vomiting and feeling of food getting stuck in her throat for several months with decreased appetite and weight loss. Admit with Near syncope, Hypoglycemia, Hyponatremia, Orthostatic Hypotension and Hypomagnesemia Dietitian Consult & Nutritional Assessment: Difficulty Swallowing. Current BMI: 23.0 Inadequate energy intake Weight: 60.9 kg, Height: 5 ft 4 in Weight Loss: documented by physician without specificity Treatment 11/18: Accuchecks, Fall precautions, Hypoglycemia Protocol, Speech Therapy, IV Na Cl 1,000 mls @ 999 mls/hr q1H, IV MagSulfate/Dextrose 100 mls @ 100 mls/hr x1, IV na Cl 1,000 mls @ 100 mls/hr q10H, IV Toradol 15 mg x1, po Compazine. Flexible Nasopharynolaryngoscopy on 11/20 PEG tube placed on 11/22. Dietary Consulted Please clarify the type of malnutrition, if known: [ ] Mild Protein-Calorie Malnutrition [ x ] Moderate Protein-Calorie Malnutrition [ ] Severe Protein-Calorie Malnutrition [ ] Other condition, please specify [ ] Unable to Determine (Template Last Revised: October 2020) MTDD
--- NOTE | 2021-11-23 15:43 | P.PN ---
Progress Note - Text Progress Note Date: 11/23/21 Chief Complaint: Tired This is a pleasant 61-year-old patient, follows with Dr. Ashley. Chronic stable medical conditions include diabetes, GERD, hypertension dyslipidemia, hypothyroid, diet-controlled diabetes. Patient was discharged on October 13 patient is admitted with nausea vomiting with the swallowing. Food getting stuck. Was seen by psychiatry diagnosed with adjustment disorder. Acute kidney injury that improved. Patient for 2 days having decreased oral intake. Some nausea vomiting. Chills. Some left lower quadrant pain. No change in the urine pattern. Feeling rather weak tired rundown. No chest pain or shortness of breath. Sometimes feeling fo od getting stuck in the throat. Labs were abnormal in the ER including sodium BUN/creatinine potassium. Admitted with acute UTI with cystitis. Started on ceftriaxone, completed course with Keflex For nausea vomiting and food getting stuck patient underwent a barium swallow that showed presbyesophagus.. EGD by Dr. Fede Ortiz showed duodenitis. PPI added. Also complaining of pain in the right hip and right knee. X-rays were nonspecific. Seen by orthopedics. Voltaren gel and Tylenol ordered. Diagnosed to have adjustment disorder with low mood and Remeron was added by Dr. Peter Blank from psychiatry. Acute kidney injury. Creatinine improved from 1.97 down to 0.78 Patient now presents with poor appetite. Able to sleep okay. Constipated. No pain. He is lightheaded. Tired rundown. Feels still pills getting stuck in the throat sometimes. Decreased oral intake.. In the ER patient found to have low-sodium. Low glucose at 46. Low magnesium. Very weak and tired. Being admitted for the same. Currently no GI service available in the hospital. Patient states trouble swallowing has been coming on since July. November 19: Patient trouble with swallowing. Feels something getting stuck in the throat. We will consult ENT with a view to in direct laryngoscopy. Also discussed with the patient about possible PEG tube. She is not ready for the same. D5W. November 20: Patient was seen by Dr. Schwartz from ENT. Indirect laryngoscopy was unremarkable. Soft tissue neck CT was also unremarkable. Given that patient is poorly intake for quite a while. Losing weight. Discussed with the patient. Increase able to proceed with a PEG tube. Continues to have hypoglycemia. November 21: Discussed with Dr. Carranza. Patient being scheduled for PEG tube. Barium swallow ordered by ENT. Discussed with the patient. Still unable to eat. Tired. November 22: Spoke to shoe parts caser this morning about indication for PEG tube results of barium swallow. To be forwarded insurance company. Later patient underwent EGD PEG tube placement with Dr. Carranza. Dietitian consulted for PEG tube feeding. Hypoglycemic last night. November 23: PEG tube feeding being started as per dietitian. Patient been hypotensive. Add midodrine and DAWN stockings. Getting IV fluids. Discussed with patient. Active Medications Acetaminophen (Acetaminophen Tab 325 Mg Tab) 650 mg PO Q6HR PRN PRN Reason: Mild Pain or Fever > 100.5 Last Admin: 11/22/21 21:45 Dose: 650 mg Documented by: Aspirin (Aspirin 81 Mg) 81 mg PO DAILY [facility] Last Admin: 11/23/21 09:12 Dose: 81 mg Documented by: Atorvastatin Calcium (Atorvastatin 40 Mg Tab) 40 mg PO DAILY [facility] Last Admin: 11/23/21 09:12 Dose: 40 mg Documented by: Calcium Carbonate/Glycine (Calcium Carbonate 500 Mg Chewable) 1,000 mg PO Q4HR PRN PRN Reason: Dyspepsia Enoxaparin Sodium (Enoxaparin 40 Mg/0.4 Ml Syringe) 40 mg SQ DAILY [facility] Last Admin: 11/23/21 09:11 Dose: 40 mg Documented by: Ferrous Sulfate (Ferrous Sulfate Oral Elixir 300 Mg/5 Ml Cup) 600 mg PO DAILY [facility] Last Admin: 11/23/21 14:03 Dose: 600 mg Documented by: Dextrose/Sodium Chloride (Dextrose 5%-1/2ns Iv Soln) 1,000 mls @ 100 mls/hr IV .Q10H [facility] Last Admin: 11/23/21 09:30 Dose: Not Given Documented by: Lactulose (Lactulose 20 Gm/30 Ml Cup) 20 gm PO DAILY PRN PRN Reason: Constipation Lorazepam (Lorazepam 0.5 Mg Tab) 0.5 mg PO Q6HR PRN PRN Reason: Anxiety Magnesium Oxide (Magnesium Oxide 400 Mg Tab) 400 mg PO TID [facility] Last Admin: 11/23/21 09:12 Dose: 400 mg Documented by: Melatonin (Melatonin 5 Mg Tablet) 10 mg PO HS [facility] Last Admin: 11/22/21 21:45 Dose: Not Given Documented by: Midodrine (Midodrine 5 Mg Tab) 5 mg PO AC-TID [facility] Last Admin: 11/23/21 14:03 Dose: 5 mg Documented by: Morphine Sulfate (Morphine Sulfate 4 Mg/Ml Syringe) 4 mg IVP Q3HR PRN PRN Reason: SEVERE Pain Last Admin: 11/22/21 16:30 Dose: 4 mg Documented by: Naloxone HCl (Naloxone 0.4 Mg/Ml 1 Ml Vial) 0.2 mg IV Q2M PRN PRN Reason: Opioid Reversal Pantoprazole Sodium (Pantoprazole 40 Mg Tablet) 40 mg PO DAILY [facility] Last Admin: 11/23/21 09:12 Dose: 40 mg Documented by: Pramipexole Dihydrochloride (Pramipexole 0.25 Mg Tab) 0.25 mg PO HS [facility] Last Admin: 11/22/21 21:45 Dose: 0.25 mg Documented by: Prochlorperazine Maleate (Prochlorperazine 5 Mg Tab) 5 mg PO Q8HR PRN PRN Reason: Nausea And Vomiting Last Admin: 11/22/21 10:20 Dose: 5 mg Documented by: Past medical history to include: Diabetes, GERD, hyperlipidemia, hypothyroid, Social history: Lives with . Did smoke in the past. No alcohol. Family history: Diabetes and hypertension Physical examination: VITAL SIGNS: 98.8, 90, 16, 10 7 x 60, 95% 2 L GENERAL: Thin built, loss of subcutaneous fat, tired EYES: Pupils equal. Conjunctiva normal. HEENT: External appearance of nose and ears normal, oral cavity grossly normal. NECK: JVD not raised; masses not palpable. HEART: First and second heart sounds are normal; no edema. LUNGS: Respiratory rate normal; clear to auscultation. ABDOMEN: Soft, nontender, liver spleen not palpable, no masses palpable. PEG tube PSYCH: Alert and oriented x3; mood and affect normal. MUSCULOSKELETAL:No Clubbing/cyanosis;muscles-grossly intact, OA. Loss of muscle mass INVESTIGATIONS, reviewed in the clinical context: November 19: Sodium 129 potassium 4.3 White count 3.6 hemoglobin 10.5 platelets 184 sodium 127 BUN 14 creatinine 0.9 to blood glucose 46 calcium 10.4 magnesia 1.4 albumin 3.3 EKG tracing personally reviewed by me-normal sinus rhythm. Nonspecific T-wave changes. Chest x-ray film personally reviewed by me-no obvious infiltrate Recent investigations: EGD: Duodenitis. No pyloric stenosis October 10: Potassium 4.6 BUN 18 creatinine 1.20 bicarb 20 Barium swallow: Presbyesophagus. Question pyloric stenosis Computed tomography scan of the abdomen: Dependent stones in the gallbladder. Possible cyst in the liver.. Scattered diabetic changes. Fecal retention. Assessment and plan: -Severe dysphagia secondary to rest by esophagus diagnosed recently by barium swallow. Patient barely able to eat.: Slow to respond. recent EGD was unremarkable. Indirect laryngoscopy unremarkable. Soft tissue CT of the neck unremarkable. November 22 PEG tube placed by Dr. Carranza -Clinical dehydration IV fluids -Severe hypoglycemia from decreased oral intake: Slow to respond D5.45 IV fluids. Add glucose tablets every 6 hours. -Adjustment disorder with low mood Remeron 7.5 mg daily at bedtime -Duodenitis Protonix -Chronic idiopathic insomnia Melatonin 10 mg daily at bedtime -Hyperlipidemia Lipitor 40 mg daily -Hypothyroid Synthroid 88 g daily -Persistent hypotension from decreased oral intake IV fluids. Add midodrine. DAWN stockings.. -GERD Protonix -Hypercalcemia secondary to dehydration: Better IV fluids -Hyponatremia, likely hypoosmolar: Increase salt intake tube to be started as per dietitian. Start glucose tablets. DAWN stockings. Add midodrine.
[2021-11-23 16:34] LABS: Glucose,Whole Blood 75 mg/dL (75-99)
--- NOTE | 2021-11-23 18:23 | P.PN ---
Subjective Progress Note Date: 11/23/21 Principal diagnosis: Malnutrition Patient complaining of mild pain at the feeding tube site. Tube feeds were started earlier today and she is tolerating them. No vomiting. Afebrile. Objective - Vital Signs Vital signs: Vital Signs Temp 98.5 F 11/23/21 17:05 Pulse 94 11/23/21 17:05 Resp 18 11/23/21 17:05 BP 110/68 11/23/21 17:05 Pulse Ox 99 11/23/21 17:05 Intake & Output 11/22/21 11/23/21 11/23/21 18:59 06:59 18:59 Intake Total 250 250 Output Total 950 Balance 250 -950 250 Weight 60.9 kg Intake: IV 250 Tube Feeding 220 Other 30 Output: Urine 950 Straight 950 Other: # Voids 1 - Exam Abdomen: Soft, nondistended, mild tenderness at PEG tube site - Labs CBC & Chem 7: 11/18/21 13:09 11/19/21 05:57 Labs: Abnormal Lab Results - Last 24 Hours (Table) 11/23/21 11/23/21 Range/Units 03:23 11:32 POC Glucose (mg/dL) 72 L 73 L (75-99) mg/dL Assessment and Plan (1) Dysphagia, pharyngeal phase Narrative/Plan: Patient doing fairly well today. Continue gradually advancing tube feeds. We'll reevaluate tomorrow. Current Visit: Yes Status: Acute Code(s): R13.13 - DYSPHAGIA, PHARYNGEAL PHASE SNOMED Code(s): 56425034247715
[2021-11-23] MEDS: DEXTROSE 4 GM CHEWABLE PO SCH ×3 (18:46→22:50)
[2021-11-23 21:36] LABS: Glucose,Whole Blood 116 mg/dL (75-99)
[2021-11-23] MEDS: PRAMIPEXOLE 0.25 MG TAB PO SCH (21:47)
[2021-11-23] MEDS: MELATONIN 5 MG TABLET PO SCH (21:47)
[2021-11-24] MEDS: ACETAMINOPHEN TAB 325 MG TAB PO PRN ×3 (00:21→22:20)
[2021-11-24] MEDS: PROCHLORPERAZINE 5 MG TAB PO PRN (03:35)
[2021-11-24 07:05] LABS: Glucose,Whole Blood 109 mg/dL (75-99)
[2021-11-24] MEDS: ATORVASTATIN 40 MG TAB PO SCH (08:50)
[2021-11-24] MEDS: ASPIRIN 81 MG PO SCH (08:50)
[2021-11-24] MEDS: FERROUS SULFATE ORAL ELIXIR 300 MG/5 ML CUP PO SCH (08:50)
[2021-11-24] MEDS: MIDODRINE 5 MG TAB PO SCH ×3 (08:50→17:36)
[2021-11-24] MEDS: ENOXAPARIN 40 MG/0.4 ML SYRINGE SQ SCH (08:50)
[2021-11-24] MEDS: PANTOPRAZOLE 40 MG TABLET PO SCH (08:50)
[2021-11-24] MEDS: MAGNESIUM OXIDE 400 MG TAB PO SCH ×3 (08:50→22:19)
[2021-11-24] MEDS: DEXTROSE 4 GM CHEWABLE PO SCH ×4 (08:51→22:19)
[2021-11-24 11:42] LABS: Glucose,Whole Blood 101 mg/dL (75-99)
--- NOTE | 2021-11-24 16:25 | P.PN ---
Progress Note - Text Progress Note Date: 11/24/21 Chief Complaint: Tired This is a pleasant 61-year-old patient, follows with Dr. Ashley. Chronic stable medical conditions include diabetes, GERD, hypertension dyslipidemia, hypothyroid, diet-controlled diabetes. Patient was discharged on October 13 patient is admitted with nausea vomiting with the swallowing. Food getting stuck. Was seen by psychiatry diagnosed with adjustment disorder. Acute kidney injury that improved. Patient for 2 days having decreased oral intake. Some nausea vomiting. Chills. Some left lower quadrant pain. No change in the urine pattern. Feeling rather weak tired rundown. No chest pain or shortness of breath. Sometimes feeling fo od getting stuck in the throat. Labs were abnormal in the ER including sodium BUN/creatinine potassium. Admitted with acute UTI with cystitis. Started on ceftriaxone, completed course with Keflex For nausea vomiting and food getting stuck patient underwent a barium swallow that showed presbyesophagus.. EGD by Dr. Fede Ortiz showed duodenitis. PPI added. Also complaining of pain in the right hip and right knee. X-rays were nonspecific. Seen by orthopedics. Voltaren gel and Tylenol ordered. Diagnosed to have adjustment disorder with low mood and Remeron was added by Dr. Peter Blank from psychiatry. Acute kidney injury. Creatinine improved from 1.97 down to 0.78 Patient now presents with poor appetite. Able to sleep okay. Constipated. No pain. He is lightheaded. Tired rundown. Feels still pills getting stuck in the throat sometimes. Decreased oral intake.. In the ER patient found to have low-sodium. Low glucose at 46. Low magnesium. Very weak and tired. Being admitted for the same. Currently no GI service available in the hospital. Patient states trouble swallowing has been coming on since July. November 19: Patient trouble with swallowing. Feels something getting stuck in the throat. We will consult ENT with a view to in direct laryngoscopy. Also discussed with the patient about possible PEG tube. She is not ready for the same. D5W. November 20: Patient was seen by Dr. Schwartz from ENT. Indirect laryngoscopy was unremarkable. Soft tissue neck CT was also unremarkable. Given that patient is poorly intake for quite a while. Losing weight. Discussed with the patient. Increase able to proceed with a PEG tube. Continues to have hypoglycemia. November 21: Discussed with Dr. Carranza. Patient being scheduled for PEG tube. Barium swallow ordered by ENT. Discussed with the patient. Still unable to eat. Tired. November 22: Spoke to leather case finisher this morning about indication for PEG tube results of barium swallow. To be forwarded insurance company. Later patient underwent EGD PEG tube placement with Dr. Carranza. Dietitian consulted for PEG tube feeding. Hypoglycemic last night. November 23: PEG tube feeding being started as per dietitian. Patient been hypotensive. Add midodrine and DAWN stockings. Getting IV fluids. Discussed with patient. November 24: PEG tube feeding has been started. Not up to goal. Patient to sit up in a chair. Blood pressure better. On midodrine and DAWN stockings. Try oral feeding as tolerated. Discussed with patient. Stop D5W. Continue glucose tablets. Active Medications Acetaminophen (Acetaminophen Tab 325 Mg Tab) 650 mg PO Q6HR PRN PRN Reason: Mild Pain or Fever > 100.5 Last Admin: 11/24/21 14:01 Dose: 650 mg Documented by: Aspirin (Aspirin 81 Mg) 81 mg PO DAILY [facility] Last Admin: 11/24/21 08:50 Dose: 81 mg Documented by: Atorvastatin Calcium (Atorvastatin 40 Mg Tab) 40 mg PO DAILY [facility] Last Admin: 11/24/21 08:50 Dose: 40 mg Documented by: Calcium Carbonate/Glycine (Calcium Carbonate 500 Mg Chewable) 1,000 mg PO Q4HR PRN PRN Reason: Dyspepsia Enoxaparin Sodium (Enoxaparin 40 Mg/0.4 Ml Syringe) 40 mg SQ DAILY [facility] Last Admin: 11/24/21 08:50 Dose: 40 mg Documented by: Ferrous Sulfate (Ferrous Sulfate Oral Elixir 300 Mg/5 Ml Cup) 600 mg PO DAILY [facility] Last Admin: 11/24/21 08:50 Dose: 600 mg Documented by: Glucose (Dextrose 4 Gm Chewable) 4 gm PO QID [facility] Last Admin: 11/24/21 14:02 Dose: 4 gm Documented by: Lactulose (Lactulose 20 Gm/30 Ml Cup) 20 gm PO DAILY PRN PRN Reason: Constipation Lorazepam (Lorazepam 0.5 Mg Tab) 0.5 mg PO Q6HR PRN PRN Reason: Anxiety Magnesium Oxide (Magnesium Oxide 400 Mg Tab) 400 mg PO TID [facility] Last Admin: 11/24/21 08:50 Dose: 400 mg Documented by: Melatonin (Melatonin 5 Mg Tablet) 10 mg PO HS [facility] Last Admin: 11/23/21 21:47 Dose: 10 mg Documented by: Midodrine (Midodrine 5 Mg Tab) 5 mg PO AC-TID [facility] Last Admin: 11/24/21 14:02 Dose: 5 mg Documented by: Naloxone HCl (Naloxone 0.4 Mg/Ml 1 Ml Vial) 0.2 mg IV Q2M PRN PRN Reason: Opioid Reversal Pantoprazole Sodium (Pantoprazole 40 Mg Tablet) 40 mg PO DAILY [facility] Last Admin: 11/24/21 08:50 Dose: 40 mg Documented by: Pramipexole Dihydrochloride (Pramipexole 0.25 Mg Tab) 0.25 mg PO [facility] Last Admin: 11/23/21 21:47 Dose: 0.25 mg Documented by: Prochlorperazine Maleate (Prochlorperazine 5 Mg Tab) 5 mg PO Q8HR PRN PRN Reason: Nausea And Vomiting Last Admin: 11/24/21 03:35 Dose: 5 mg Documented by: Past medical history to include: Diabetes, GERD, hyperlipidemia, hypothyroid, Social history: Lives with . Did smoke in the past. No alcohol. Family history: Diabetes and hypertension Physical examination: VITAL SIGNS: 97.7, 94, 18, 112/65, 98% on 2 L GENERAL: Thin built, loss of subcutaneous fat, tired EYES: Pupils equal. Conjunctiva normal. HEENT: External appearance of nose and ears normal, oral cavity grossly normal. NECK: JVD not raised; masses not palpable. HEART: First and second heart sounds are normal; no edema. LUNGS: Respiratory rate normal; clear to auscultation. ABDOMEN: Soft, nontender, liver spleen not palpable, no masses palpable. PEG tube PSYCH: Alert and oriented x3; mood and affect normal. MUSCULOSKELETAL:No Clubbing/cyanosis;muscles-grossly intact, OA. Loss of muscle mass INVESTIGATIONS, reviewed in the clinical context: November 19: Sodium 129 potassium 4.3 White count 3.6 hemoglobin 10.5 platelets 184 sodium 127 BUN 14 creatinine 0.9 to blood glucose 46 calcium 10.4 magnesia 1.4 albumin 3.3 EKG tracing personally reviewed by me-normal sinus rhythm. Nonspecific T-wave changes. Chest x-ray film personally reviewed by me-no obvious infiltrate Recent investigations: EGD: Duodenitis. No pyloric stenosis October 10: Potassium 4.6 BUN 18 creatinine 1.20 bicarb 20 Barium swallow: Presbyesophagus. Question pyloric stenosis Computed tomography scan of the abdomen: Dependent stones in the gallbladder. Possible cyst in the liver.. Scattered diabetic changes. Fecal retention. Assessment and plan: -Severe dysphagia secondary to rest by esophagus diagnosed recently by barium swallow. Patient barely able to eat.: Slow to respond. recent EGD was unremarkable. Indirect laryngoscopy unremarkable. Soft tissue CT of the neck unremarkable. November 22 PEG tube placed by Dr. Carranza. 2 feeding being advanced -Clinical dehydration IV fluids: Discontinue -Severe hypoglycemia from decreased oral intake: Improving D5.45 IV fluids-discontinue. glucose tablets every 6 hours. -Adjustment disorder with low mood Remeron 7.5 mg daily at bedtime -Duodenitis Protonix -Chronic idiopathic insomnia Melatonin 10 mg daily at bedtime -Hyperlipidemia Lipitor 40 mg daily -Hypothyroid Synthroid 88 g daily -Persistent hypotension from decreased oral intake: Slow to respond IV fluids. midodrine. DAWN stockings.. -GERD Protonix -Hypercalcemia secondary to dehydration: Better IV fluids -Hyponatremia, likely hypoosmolar: Increase salt intake Advance tube feeding. DC D5 0.45. Up in a chair. Increase midodrine to 10 mg 3 times a day.
[2021-11-24 16:42] LABS: Glucose,Whole Blood 104 mg/dL (75-99)
[2021-11-24] MEDS: DEXTROSE 5%-0.45% NACL 1,000 ML IV SCH (17:38)
--- NOTE | 2021-11-24 18:13 | P.PN ---
Progress Note - Text Progress Note Date: 11/24/21 patient resting comfortably. Says her abdominal pain is less than yesterday. Tolerating tube feeds at 40 mL per hour. Abdomen: Soft, nondistended, mild tenderness at PEG tube site, bolster loosened slightly. Patient doing well. Continue advancing tube feeds as tolerated.
[2021-11-24 20:30] LABS: Glucose,Whole Blood 113 mg/dL (75-99)
[2021-11-24] MEDS: MELATONIN 5 MG TABLET PO SCH (22:19)
[2021-11-24] MEDS: PRAMIPEXOLE 0.25 MG TAB PO SCH (22:19)
[2021-11-25 06:00] LABS: Basophils % (A) 1 %; Eosinophils # (A) 0.2 k/uL (0-0.7); Eosinophils % (A) 4 %; Lymphocytes # (A) 1.3 k/uL (1.0-4.8); Lymphocytes % (A) 24 %; MCH 29.1 pg (25.0-35.0); MCHC 32.9 g/dL (31.0-37.0); MCV 88.3 fL (80.0-100.0); Mean Platelet Volume 7.6; Monocytes # (A) 0.4 k/uL (0-1.0); Monocytes % (A) 7 %; Neutrophils # (A) 3.5 k/uL (1.3-7.7); Neutrophils % (A) 63 %; Platelet Count 208 k/uL (150-450); RBC 3.05 m/uL (3.80-5.40); RDW 12.8 % (11.5-15.5); WBC 5.6 k/uL (3.8-10.6)
[2021-11-25 06:23] LABS: HGB 8.9 gm/dL (11.4-16.0)
[2021-11-25 06:25] LABS: ALT 14 U/L (4-34); AST 40 U/L (14-36); African American GFR (CKD) >90 (>60 ml/min/1.73 sqM); Albumin 2.2 g/dL (3.5-5.0); Alkaline Phosphatase 69 U/L (38-126); Anion Gap 4 mmol/L; Blood Urea Nitrogen 6 mg/dL (7-17); Calcium 8.6 mg/dL (8.4-10.2); Carbon Dioxide 22 mmol/L (22-30); Chloride 98 mmol/L (98-107); Globulin 2.2 g/dL; Glucose 89 mg/dL (74-99); Non-African American GFR(CKD) 87 (>60 ml/min/1.73 sqM); Potassium 3.7 mmol/L (3.5-5.1); Sodium 124 mmol/L (137-145); Total Bilirubin 0.5 mg/dL (0.2-1.3); Total Protein 4.4 g/dL (6.3-8.2)
[2021-11-25 07:03] LABS: Glucose,Whole Blood 98 mg/dL (75-99)
[2021-11-25] MEDS: ENOXAPARIN 40 MG/0.4 ML SYRINGE SQ SCH (08:43)
[2021-11-25] MEDS: MIDODRINE 5 MG TAB PO SCH ×3 (08:44→17:24)
[2021-11-25] MEDS: ATORVASTATIN 40 MG TAB PO SCH (08:44)
[2021-11-25] MEDS: ACETAMINOPHEN TAB 325 MG TAB PO PRN ×2 (08:44→15:58)
[2021-11-25] MEDS: PANTOPRAZOLE 40 MG TABLET PO SCH (08:46)
[2021-11-25] MEDS: DEXTROSE 4 GM CHEWABLE PO SCH ×4 (08:46→21:22)
[2021-11-25] MEDS: MAGNESIUM OXIDE 400 MG TAB PO SCH ×3 (08:46→21:22)
[2021-11-25] MEDS: FERROUS SULFATE ORAL ELIXIR 300 MG/5 ML CUP PO SCH (08:47)
[2021-11-25] MEDS: ASPIRIN 81 MG PO SCH (08:48)
[2021-11-25 09:48] VITALS: BMI 25.3
--- NOTE | 2021-11-25 10:06 | P.PN ---
Subjective Progress Note Date: 11/25/21 Principal diagnosis: Malnutrition Patient doing well today. Minimal abdominal pain. Tolerating tube feeds now at goal. Patient is hoping to go home today. Objective - Vital Signs Vital signs: Vital Signs Temp 98.2 F 11/25/21 07:07 Pulse 76 11/25/21 07:07 Resp 18 11/25/21 07:07 BP 112/68 11/25/21 07:07 Pulse Ox 97 11/25/21 07:07 Intake & Output 11/24/21 11/25/21 11/25/21 18:59 06:59 18:59 Intake Total 480 Balance 480 Weight 67 kg 67 kg Intake: Tube Feeding 480 Other: Voiding Method Bedside Commode Bedside Commode - Exam Abdomen: Soft, nondistended, PEG tube in place, minimal tenderness - Labs CBC & Chem 7: 11/25/21 05:28 11/25/21 05:28 Labs: Abnormal Lab Results - Last 24 Hours (Table) 11/24/21 11/24/21 11/24/21 Range/Units 11:40 16:41 20:29 RBC (3.80-5.40) m/uL Hgb (11.4-16.0) gm/dL Hct (34.0-46.0) % Sodium (137-145) mmol/L BUN (7-17) mg/dL POC Glucose (mg/dL) 101 H 104 H 113 H (75-99) mg/dL AST (14-36) U/L Total Protein (6.3-8.2) g/dL Albumin (3.5-5.0) g/dL 11/25/21 11/25/21 Range/Units 05:28 05:28 RBC 3.05 L (3.80-5.40) m/uL Hgb 8.9 L D (11.4-16.0) gm/dL Hct 27.0 L (34.0-46.0) % Sodium 124 L (137-145) mmol/L BUN 6 L (7-17) mg/dL POC Glucose (mg/dL) (75-99) mg/dL AST 40 H (14-36) U/L Total Protein 4.4 L (6.3-8.2) g/dL Albumin 2.2 L (3.5-5.0) g/dL Assessment and Plan (1) Dysphagia, pharyngeal phase Narrative/Plan: Patient doing well at this time. Continue tube feeds at goal. Possible discharge. We'll sign off at this point. Follow-up in the office 1-2 weeks. Current Visit: Yes Status: Acute Code(s): R13.13 - DYSPHAGIA, PHARYNGEAL PHASE SNOMED Code(s): 69995361448566
[2021-11-25] MEDS: SODIUM CHLORIDE TAB 1 GM TAB PO SCH ×4 (11:15→21:22)
[2021-11-25 11:43] LABS: Glucose,Whole Blood 100 mg/dL (75-99)
[2021-11-25] MEDS: PROCHLORPERAZINE 5 MG TAB PO PRN (15:58)
[2021-11-25 16:43] LABS: Glucose,Whole Blood 104 mg/dL (75-99)
--- NOTE | 2021-11-25 17:14 | P.PN ---
Progress Note - Text Progress Note Date: 11/25/21 Chief Complaint: Tired This is a pleasant 61-year-old patient, follows with Dr. Ashley. Chronic stable medical conditions include diabetes, GERD, hypertension dyslipidemia, hypothyroid, diet-controlled diabetes. Patient was discharged on October 13 patient is admitted with nausea vomiting with the swallowing. Food getting stuck. Was seen by psychiatry diagnosed with adjustment disorder. Acute kidney injury that improved. Patient for 2 days having decreased oral intake. Some nausea vomiting. Chills. Some left lower quadrant pain. No change in the urine pattern. Feeling rather weak tired rundown. No chest pain or shortness of breath. Sometimes feeling fo od getting stuck in the throat. Labs were abnormal in the ER including sodium BUN/creatinine potassium. Admitted with acute UTI with cystitis. Started on ceftriaxone, completed course with Keflex For nausea vomiting and food getting stuck patient underwent a barium swallow that showed presbyesophagus.. EGD by Dr. Fede Ortiz showed duodenitis. PPI added. Also complaining of pain in the right hip and right knee. X-rays were nonspecific. Seen by orthopedics. Voltaren gel and Tylenol ordered. Diagnosed to have adjustment disorder with low mood and Remeron was added by Dr. Peter Blank from psychiatry. Acute kidney injury. Creatinine improved from 1.97 down to 0.78 Patient now presents with poor appetite. Able to sleep okay. Constipated. No pain. He is lightheaded. Tired rundown. Feels still pills getting stuck in the throat sometimes. Decreased oral intake.. In the ER patient found to have low-sodium. Low glucose at 46. Low magnesium. Very weak and tired. Being admitted for the same. Currently no GI service available in the hospital. Patient states trouble swallowing has been coming on since July. November 19: Patient trouble with swallowing. Feels something getting stuck in the throat. We will consult ENT with a view to in direct laryngoscopy. Also discussed with the patient about possible PEG tube. She is not ready for the same. D5W. November 20: Patient was seen by Dr. Schwartz from ENT. Indirect laryngoscopy was unremarkable. Soft tissue neck CT was also unremarkable. Given that patient is poorly intake for quite a while. Losing weight. Discussed with the patient. Increase able to proceed with a PEG tube. Continues to have hypoglycemia. November 21: Discussed with Dr. Carranza. Patient being scheduled for PEG tube. Barium swallow ordered by ENT. Discussed with the patient. Still unable to eat. Tired. November 22: Spoke to leather case finisher this morning about indication for PEG tube results of barium swallow. To be forwarded insurance company. Later patient underwent EGD PEG tube placement with Dr. Carranza. Dietitian consulted for PEG tube feeding. Hypoglycemic last night. November 23: PEG tube feeding being started as per dietitian. Patient been hypotensive. Add midodrine and DAWN stockings. Getting IV fluids. Discussed with patient. November 24: PEG tube feeding has been started. Not up to goal. Patient to sit up in a chair. Blood pressure better. On midodrine and DAWN stockings. Try oral feeding as tolerated. Discussed with patient. Stop D5W. Continue glucose tablets. November 25: PEG 2 feeding being tolerated. Blood pressure better. Sodium still low. Discussed with nurse. And the patient. Avoid free fluid. Up in chair. Active Medications Acetaminophen (Acetaminophen Tab 325 Mg Tab) 650 mg PO Q6HR PRN PRN Reason: Mild Pain or Fever > 100.5 Last Admin: 11/25/21 15:58 Dose: 650 mg Documented by: Aspirin (Aspirin 81 Mg) 81 mg PO DAILY [facility] Last Admin: 11/25/21 08:48 Dose: 81 mg Documented by: Atorvastatin Calcium (Atorvastatin 40 Mg Tab) 40 mg PO DAILY [facility] Last Admin: 11/25/21 08:44 Dose: 40 mg Documented by: Calcium Carbonate/Glycine (Calcium Carbonate 500 Mg Chewable) 1,000 mg PO Q4HR PRN PRN Reason: Dyspepsia Enoxaparin Sodium (Enoxaparin 40 Mg/0.4 Ml Syringe) 40 mg SQ DAILY [facility] Last Admin: 11/25/21 08:43 Dose: 40 mg Documented by: Ferrous Sulfate (Ferrous Sulfate Oral Elixir 300 Mg/5 Ml Cup) 600 mg PO DAILY [facility] Last Admin: 11/25/21 08:47 Dose: 600 mg Documented by: Glucose (Dextrose 4 Gm Chewable) 4 gm PO QID [facility] Last Admin: 11/25/21 12:04 Dose: 4 gm Documented by: Lactulose (Lactulose 20 Gm/30 Ml Cup) 20 gm PO DAILY PRN PRN Reason: Constipation Lorazepam (Lorazepam 0.5 Mg Tab) 0.5 mg PO Q6HR PRN PRN Reason: Anxiety Magnesium Oxide (Magnesium Oxide 400 Mg Tab) 400 mg PO TID [facility] Last Admin: 11/25/21 15:58 Dose: 400 mg Documented by: Melatonin (Melatonin 5 Mg Tablet) 10 mg PO [facility] Last Admin: 11/24/21 22:19 Dose: 10 mg Documented by: Midodrine (Midodrine 5 Mg Tab) 10 mg PO AC-TID [facility] Last Admin: 11/25/21 12:04 Dose: 10 mg Documented by: Naloxone HCl (Naloxone 0.4 Mg/Ml 1 Ml Vial) 0.2 mg IV Q2M PRN PRN Reason: Opioid Reversal Pantoprazole Sodium (Pantoprazole 40 Mg Tablet) 40 mg PO DAILY [facility] Last Admin: 11/25/21 08:46 Dose: 40 mg Documented by: Pramipexole Dihydrochloride (Pramipexole 0.25 Mg Tab) 0.25 mg PO [facility] Last Admin: 11/24/21 22:19 Dose: 0.25 mg Documented by: Prochlorperazine Maleate (Prochlorperazine 5 Mg Tab) 5 mg PO Q8HR PRN PRN Reason: Nausea And Vomiting Last Admin: 11/25/21 15:58 Dose: 5 mg Documented by: Sodium Chloride (Sodium Chloride Tab 1 Gm Tab) 2 gm PO QID [facility] Last Admin: 11/25/21 12:04 Dose: Not Given Documented by: Past medical history to include: Diabetes, GERD, hyperlipidemia, hypothyroid, Social history: Lives with . Did smoke in the past. No alcohol. Family history: Diabetes and hypertension Physical examination: VITAL SIGNS: 79, 18, 1 29 x 74, 93% room air GENERAL: Thin built, loss of subcutaneous fat, tired EYES: Pupils equal. Conjunctiva normal. HEENT: External appearance of nose and ears normal, oral cavity grossly normal. NECK: JVD not raised; masses not palpable. HEART: First and second heart sounds are normal; no edema. LUNGS: Respiratory rate normal; clear to auscultation. ABDOMEN: Soft, nontender, liver spleen not palpable, no masses palpable. PEG tube PSYCH: Alert and oriented x3; mood and affect normal. MUSCULOSKELETAL:No Clubbing/cyanosis;muscles-grossly intact, OA. Loss of muscle mass INVESTIGATIONS, reviewed in the clinical context: November 25: White count 5.6 hemoglobin 8.9 sodium 124 potassium 3.7 creatinine 0.74 serum osmolality 260 albumin 2.2 November 19: Sodium 129 potassium 4.3 White count 3.6 hemoglobin 10.5 platelets 184 sodium 127 BUN 14 creatinine 0.9 to blood glucose 46 calcium 10.4 magnesia 1.4 albumin 3.3 EKG tracing personally reviewed by me-normal sinus rhythm. Nonspecific T-wave changes. Chest x-ray film personally reviewed by me-no obvious infiltrate Recent investigations: EGD: Duodenitis. No pyloric stenosis October 10: Potassium 4.6 BUN 18 creatinine 1.20 bicarb 20 Barium swallow: Presbyesophagus. Question pyloric stenosis Computed tomography scan of the abdomen: Dependent stones in the gallbladder. Possible cyst in the liver.. Scattered diabetic changes. Fecal retention. Assessment and plan: -Severe dysphagia secondary to rest by esophagus diagnosed recently by barium swallow. Patient barely able to eat.: Slow to respond. recent EGD was unremarkable. Indirect laryngoscopy unremarkable. Soft tissue CT of the neck unremarkable. November 22 PEG tube placed by Dr. Carranza. 2 feeding being advanced -Clinical dehydration IV fluids: Discontinue -Severe hypoglycemia from decreased oral intake: Improving D5.45 IV fluids-discontinue. glucose tablets every 6 hours. -Adjustment disorder with low mood Remeron 7.5 mg daily at bedtime -Duodenitis Protonix -Chronic idiopathic insomnia Melatonin 10 mg daily at bedtime -Hyperlipidemia Lipitor 40 mg daily -Hypothyroid Synthroid 88 g daily -Persistent hypotension from decreased oral intake: Better IV fluids. midodrine 10 mg 3 times a day. DAWN stockings.. -GERD Protonix -Hypercalcemia secondary to dehydration: Better IV fluids -Severe Hyponatremia, hypoosmolar: Worsening Salt tablets 2 g 4 times a day started today. Avoid free fluid water. Up in a chair. midodrine to 10 mg 3 times a day. And Salt 2 g 4 times a day. Avoid free water. Check BMP serum osmolality the morning. Hold free water. Discussed with patient
[2021-11-25 20:22] LABS: Glucose,Whole Blood 102 mg/dL (75-99)
[2021-11-25] MEDS: PRAMIPEXOLE 0.25 MG TAB PO SCH (21:22)
[2021-11-25] MEDS: MELATONIN 5 MG TABLET PO SCH (21:22)
[2021-11-26 07:01] LABS: African American GFR (CKD) >90 (>60 ml/min/1.73 sqM); Anion Gap 4 mmol/L; Blood Urea Nitrogen 6 mg/dL (7-17); Calcium 8.9 mg/dL (8.4-10.2); Carbon Dioxide 24 mmol/L (22-30); Chloride 102 mmol/L (98-107); Glucose 103 mg/dL (74-99); Non-African American GFR(CKD) 88 (>60 ml/min/1.73 sqM); Potassium 3.9 mmol/L (3.5-5.1); Sodium 130 mmol/L (137-145)
[2021-11-26 07:06] LABS: Glucose,Whole Blood 94 mg/dL (75-99)
--- NOTE | 2021-11-26 07:37 | FL ---
Modified barium swallow. HISTORY: Dysphagia. Modified barium swallow was performed with the department of speech pathology. The patient was prese nted with various consistencies of barium. There is no evidence for aspiration or penetration. Full report is to follow from the department of speech pathology. Impression: Normal study.
[2021-11-26] MEDS: MAGNESIUM OXIDE 400 MG TAB PO SCH (08:23)
[2021-11-26] MEDS: ASPIRIN 81 MG PO SCH (08:23)
[2021-11-26] MEDS: ENOXAPARIN 40 MG/0.4 ML SYRINGE SQ SCH (08:23)
[2021-11-26] MEDS: ATORVASTATIN 40 MG TAB PO SCH (08:23)
[2021-11-26] MEDS: MIDODRINE 5 MG TAB PO SCH ×2 (08:23→13:18)
[2021-11-26] MEDS: DEXTROSE 4 GM CHEWABLE PO SCH ×2 (08:23→13:28)
[2021-11-26] MEDS: PANTOPRAZOLE 40 MG TABLET PO SCH (08:23)
[2021-11-26] MEDS: FERROUS SULFATE ORAL ELIXIR 300 MG/5 ML CUP PO SCH (08:24)
[2021-11-26] MEDS: SODIUM CHLORIDE TAB 1 GM TAB PO SCH ×2 (08:24→13:18)
[2021-11-26 11:32] LABS: Glucose,Whole Blood 100 mg/dL (75-99)
[2021-11-26 14:57] VITALS: BP 119/69; PULSE 81; RESP 16; TEMP 99.2
--- NOTE | 2021-11-26 20:38 | P.DS ---
Providers Date of admission: 11/18/21 16:15 Expected date of discharge: 11/26/21 Attending physician: Ky Rivera Consults: 11/19/21 15:00 Consult Physician Routine Consulting Provider: Tony Morton Reason/Comments: Throat dysphagia. In direct laryngoscopy Do you want consulting provider notified?: Yes 11/20/21 15:33 Consult Physician Routine Consulting Provider: Erick Del Rosario Consult Reason/Comments: PEG tube placement Do you want consulting provider notified?: Yes Primary care physician: Arvin Ashley Procedures: Chief Complaint: Tired This is a pleasant 61-year-old patient, follows with Dr. Ashley. Chronic stable medical conditions include diabetes, GERD, hypertension dyslipidemia, hypothyroid, diet-controlled diabetes. Patient was discharged on October 13 patient is admitted with nausea vomiting with the swallowing. Food getting stuck. Was seen by psychiatry diagnosed with adjustment disorder. Acute kidney injury that improved. Patient for 2 days having decreased oral intake. Some nausea vomiting. Chills. Some left lower quadrant pain. No change in the urine pattern. Feeling rather weak tired rundown. No chest pain or shortness of breath. Sometimes feeling food getting stuck in the throat. Labs were abnormal in the ER including sodium BUN/creatinine potassium. Admitted with acute UTI with cystitis. Started on ceftriaxone, completed course with Keflex For nausea vomiting and food getting stuck patient underwent a barium swallow that showed presbyesophagus.. EGD by Dr. Fede Ortiz showed duodenitis. PPI added. Also complaining of pain in the right hip and right knee. X-rays were nonspecific. Seen by orthopedics. Voltaren gel and Tylenol ordered. Diagnosed to have adjustment disorder with low mood and Remeron was added by Dr. Peter Blank from psychiatry. Acute kidney injury. Creatinine improved from 1.97 down to 0.78 Patient now presents with poor appetite. Able to sleep okay. Constipated. No pain. He is lightheaded. Tired rundown. Feels still pills getting stuck in the throat sometimes. Decreased oral intake.. In the ER patient found to have low-sodium. Low glucose at 46. Low magnesium. Very weak and tired. Being admitted for the same. Currently no GI service available in the hospital. Patient states trouble swallowing has been coming on since July. Patient is seen by Dr. Schwartz. Indirect laryngoscopy was unremarkable. Soft tissue neck computed tomography scan was unremarkable. Continued to get hypoglycemic. Salt tablets were added. Given D5W. Not able to eat. Month ago patient's barium swallow had confirmed presbyesophagus. Because of failing health hypotension hypoglycemia number to eat for long time we decided proceed w ith a PEG tube. November 22 PEG tube placed. 2 feeding started. Patient will get bolus feeding at home. Patient also had hyponatremia. Salt tablets added. Free fluid restricted. Today: Care was discussed with the patient. Tolerating tube feeding. Patient is supported home. Discharge salt tablets. Questions answered. 2 feeding supplies been delivered at home. Discussion and discharge planning more than 35 minutes Past medical history to include: Diabetes, GERD, hyperlipidemia, hypothyroid, Social history: Lives with . Did smoke in the past. No alcohol. Family history: Diabetes and hypertension Physical examination: VITAL SIGNS: 99.2, 81, 16, 119/69, 92% room air GENERAL: Thin built, loss of subcutaneous fat, tired EYES: Pupils equal. Conjunctiva normal. HEENT: External appearance of nose and ears normal, oral cavity grossly normal. NECK: JVD not raised; masses not palpable. HEART: First and second heart sounds are normal; no edema. LUNGS: Respiratory rate normal; clear to auscultation. ABDOMEN: Soft, nontender, liver spleen not palpable, no masses palpable. PEG tube PSYCH: Alert and oriented x3; mood and affect normal. MUSCULOSKELETAL:No Clubbing/cyanosis;muscles-grossly intact, OA. Loss of muscle mass INVESTIGATIONS, reviewed in the clinical context: November 26: Sodium 1:30 potassium 3.9 creatinine 0.73 serum osmolality 268 White count 3.6 hemoglobin 10.5 platelets 184 sodium 127 BUN 14 creatinine 0.9 to blood glucose 46 calcium 10.4 magnesia 1.4 albumin 3.3 EKG tracing personally reviewed by me-normal sinus rhythm. Nonspecific T-wave changes. Chest x-ray film personally reviewed by me-no obvious infiltrate Recent investigations: EGD: Duodenitis. No pyloric stenosis October 10: Potassium 4.6 BUN 18 creatinine 1.20 bicarb 20 Barium swallow: Presbyesophagus. Question pyloric stenosis Computed tomography scan of the abdomen: Dependent stones in the gallbladder. Possible cyst in the liver.. Scattered diabetic changes. Fecal retention. Assessment and plan: -Severe dysphagia secondary to presbyesophagus diagnosed recently by barium swallow. Patient barely able to eat. Not swallow pills at times recent EGD was unremarkable. Indirect laryngoscopy unremarkable. Soft tissue CT of the neck unremarkable. November [address] PEG tube placed by Dr. Carranza. 2 feeding tolerated -Clinical dehydration IV fluids: Discontinue -Severe hypoglycemia from decreased oral intake: Improving D5.45 IV fluids-discontinue. glucose tablets every 6 hours. -Adjustment disorder with low mood Remeron 7.5 mg daily at bedtime -Duodenitis Protonix -Chronic idiopathic insomnia Melatonin 10 mg daily at bedtime -Hyperlipidemia Lipitor 40 mg daily -Hypothyroid Synthroid 88 g daily -Persistent hypotension from decreased oral intake: Better IV fluids. midodrine 10 mg 3 times a day. DAWN stockings.. -GERD Protonix -Hypercalcemia secondary to dehydration: Better IV fluids -Severe Hyponatremia, hypoosmolar: Better Salt tablets 2 g 4 times a day Avoid free fluid water. Disposition: Home Patient Condition at Discharge: Fair Plan - Discharge Summary New Discharge Prescriptions: New Midodrine [ProAmatine] 10 mg PO AC-TID #120 tab Acetaminophen Tab [Tylenol] 650 mg PO Q6HR PRN tab PRN Reason: Mild Pain Or Fever > 100.5 Ferrous Sulfate Oral Elixir [Feosol Liquid] 600 mg PO DAILY #300 ml Pramipexole [Mirapex] 0.25 mg PO HS #30 tab Sodium Chloride Tab 2 gm PO QID #120 tab Continue Atorvastatin [Lipitor] 40 mg PO DAILY Aspirin EC [Ecotrin Low Dose] 81 mg PO DAILY Natual Calm Magnesium Citrate Powder 1 tsp PO DAILY Melatonin 10 mg PO HS Omeprazole 40 mg PO DAILY Levothyroxine Sodium [Synthroid] 88 mcg PO DAILY Discontinued Ferrous Sulfate [Feosol] 650 mg PO DAILY Discharge Medication List Aspirin EC [Ecotrin Low Dose] 81 mg PO DAILY 10/08/21 [History] Atorvastatin [Lipitor] 40 mg PO DAILY 10/08/21 [History] Levothyroxine Sodium [Synthroid] 88 mcg PO DAILY 10/08/21 [History] Melatonin 10 mg PO HS 10/08/21 [History] Omeprazole 40 mg PO DAILY 10/08/21 [History] Natual Calm Magnesium Citrate Powder 1 tsp PO DAILY 04/08/22 [History] Acetaminophen Tab [Tylenol] 650 mg PO Q6HR PRN tab 11/26/21 [Rx] Ferrous Sulfate Oral Elixir [Feosol Liquid] 600 mg PO DAILY #300 ml 11/26/21 [Rx] Midodrine [ProAmatine] 10 mg PO AC-TID #120 tab 11/26/21 [Rx] Pramipexole [Mirapex] 0.25 mg PO HS #30 tab 11/26/21 [Rx] Sodium Chloride Tab 2 gm PO QID #120 tab 11/26/21 [Rx] Follow up Appointment(s)/Referral(s): Prince Pérez MD [Medical Doctor] - 2 Weeks [facility], [NON-STAFF] - ([facility] will call you to schedule your home care services. A nurse will see you the day after discharge to begin tube feeding education. ) Arvin Ashley MD [Primary Care Provider] - 11/30/21 1:00 [facility] [REFERRING] - ([facility] will deliver the tube feedings and supplies to your home on the night of discharge from the hospital or early the next day. They will call prior to delivery. ) Patient Instructions/Handouts: Hyponatremia (DC) Discharge Disposition: HOME WITH HOME HEALTH SERVICES
== END 2021-11-26 16:11 | disposition home health service (06) | DRG 392 ==
LOC: EC 12:48 → 4SSUR 16:15
PROVIDERS: ADMIT Hospitalist; ATTEND Hospitalist
PROC: 0CJS8ZZ Inspection of Larynx, Via Natural or Artificial Opening Endoscopic (ICD-10-PCS; 2021-11-20)
PROC: 3E0G76Z Introduction of Nutritional Substance into Upper GI, Via Natural or Artificial Opening (ICD-10-PCS; principal; 2021-11-22 08:35)
PROC: 0DH63UZ Insertion of Feeding Device into Stomach, Percutaneous Approach (ICD-10-PCS; principal; 2021-11-22 08:35)
DX: R13.13 Dysphagia, pharyngeal phase (principal); N17.9 Acute kidney failure, unspecified; E44.0 Moderate protein-calorie malnutrition; E87.1 Hypo-osmolality and hyponatremia; K29.80 Duodenitis without bleeding; K59.00 Constipation, unspecified; R47.02 Dysphasia; D64.9 Anemia, unspecified; E03.9 Hypothyroidism, unspecified; E11.649 Type 2 diabetes mellitus with hypoglycemia without coma; Z68.25 Body mass index [BMI] 25.0-25.9, adult; E78.5 Hyperlipidemia, unspecified; E83.42 Hypomagnesemia; E83.52 Hypercalcemia; E86.0 Dehydration; F43.22 Adjustment disorder with anxiety; F51.01 Primary insomnia; I10 Essential (primary) hypertension; I95.1 Orthostatic hypotension; K21.9 Gastro-esophageal reflux disease without esophagitis; K22.89 Other specified disease of esophagus; Z79.82 Long term (current) use of aspirin; Z79.890 Hormone replacement therapy; Z79.899 Other long term (current) drug therapy; Z82.49 Family history of ischemic heart disease and other diseases of the circulatory system; Z83.3 Family history of diabetes mellitus; Z87.891 Personal history of nicotine dependence; Z90.710 Acquired absence of both cervix and uterus; Z88.2 Allergy status to sulfonamides; Z88.8 Allergy status to other drugs, medicaments and biological substances; Z88.1 Allergy status to other antibiotic agents; Z91.030 Bee allergy status; Z98.890 Other specified postprocedural states; Z86.010 Personal history of colon polyps
CPT/HCPCS: 36415; 43246; 70491; 71045; 71046; 74230; 80048; 80053; 81003; 83605; 83735; 83930; 84439; 84443; 84484; 85025; 85610; 85730; 86850; 86900; 86901; 93005; 94760; 96361; 96365; 96375; 99285

== ENCOUNTER 2021-12-04 13:49 | Emergency (ER) | payer OTHER ==
[2021-12-04 13:59] VITALS: RESP 16; TEMP 98.3
[2021-12-04] MEDS ORDERED: SODIUM CHLORIDE 0.9% 1,000 ML IV STA (14:54)
[2021-12-04] MEDS ORDERED: ONDANSETRON 4 MG/2 ML VIAL IVP STA (14:54)
[2021-12-04 15:43] LABS: ALT 10 U/L (4-34); AST 27 U/L (14-36); African American GFR (CKD) >90 (>60 ml/min/1.73 sqM); Albumin 2.8 g/dL (3.5-5.0); Alkaline Phosphatase 59 U/L (38-126); Anion Gap 7 mmol/L; Basophils % (A) 0 %; Blood Urea Nitrogen 8 mg/dL (7-17); Calcium 9.4 mg/dL (8.4-10.2); Carbon Dioxide 22 mmol/L (22-30); Chloride 110 mmol/L (98-107); Eosinophils # (A) 0.2 k/uL (0-0.7); Eosinophils % (A) 3 %; HCT 27.5 % (34.0-46.0); Hypochromasia Slight; Lipase 33 U/L (23-300); Lymphocytes % (A) 29 %; MCHC 32.7 g/dL (31.0-37.0); MCV 88.7 fL (80.0-100.0); Monocytes # (A) 0.3 k/uL (0-1.0); Monocytes % (A) 4 %; Neutrophils # (A) 4.3 k/uL (1.3-7.7); Neutrophils % (A) 62 %; Non-African American GFR(CKD) 82 (>60 ml/min/1.73 sqM); Potassium 4.1 mmol/L (3.5-5.1); RDW 13.2 % (11.5-15.5); Sodium 139 mmol/L (137-145); Total Bilirubin 0.7 mg/dL (0.2-1.3); Total Protein 5.5 g/dL (6.3-8.2); WBC 6.9 k/uL (3.8-10.6)
[2021-12-04 15:44] LABS: Platelet Count 500 k/uL (150-450)
[2021-12-04 15:45] LABS: Glucose 46 mg/dL (74-99)
[2021-12-04] MEDS ORDERED: DEXTROSE 50% SYRINGE 50 ML IVP STA (15:58)
[2021-12-04 16:03] LABS: Glucose,Whole Blood 53 mg/dL (75-99)
[2021-12-04 16:34] LABS: Glucose,Whole Blood 136 mg/dL (75-99)
[2021-12-04] MEDS ORDERED: PIPERACILLIN-TAZOBACTAM 3.375 GM in SODIUM CHLORIDE 0.9% 100 ML IVPB STA (16:44)
--- NOTE | 2021-12-04 17:14 | ED ---
General Adult HPI - General Chief complaint: Recheck/Abnormal Lab/Rx Stated complaint: Possible Inf. Peg Tube Time Seen by Provider: 12/04/21 14:18 Source: patient, EMS Mode of arrival: EMS Limitations: no limitations - History of Present Illness Initial comments: Patient is a 61-year-old female who presents with concern for PEG tube infection. Patient states the PEG tube was placed 2 weeks ago due to the inability to swallow. Patient was recently diagnosed with presbyesophagus. Patient states for the past couple days she has noticed green discharge around the PEG tube site. Patient reports abdominal pain surrounding the site. She denies fever and chills. Patient states since the PEG tube was placed she has experienced consistent nausea and vomiting with feeding. She states she still is able to eat Jell-O and drink liquids. Patient denies chest pain and shortness of breath. She has no other concerns at this time. - Related Data Home Medications Medication Instructions Recorded Confirmed Aspirin EC [Ecotrin Low Dose] 81 mg PO DAILY 10/08/21 11/18/21 Atorvastatin [Lipitor] 40 mg PO DAILY 10/08/21 11/18/21 Levothyroxine Sodium [Synthroid] 88 mcg PO DAILY 10/08/21 11/18/21 Melatonin 10 mg PO HS 10/08/21 11/18/21 Omeprazole 40 mg PO DAILY 10/08/21 11/18/21 Natual Calm Magnesium Citrate 1 tsp PO DAILY 11/18/21 11/18/21 Powder Previous Rx's Medication Instructions Recorded Acetaminophen Tab [Tylenol] 650 mg PO Q6HR PRN tab 11/26/21 Ferrous Sulfate Oral Elixir 600 mg PO DAILY #300 ml 11/26/21 [Feosol Liquid] Midodrine [ProAmatine] 10 mg PO AC-TID #120 tab 11/26/21 Pramipexole [Mirapex] 0.25 mg PO HS #30 tab 11/26/21 Sodium Chloride Tab 2 gm PO QID #120 tab 11/26/21 Clindamycin [Cleocin] 150 mg PO Q8H 7 Days #63 capsule 12/04/21 Allergies Allergy/AdvReac Type Severity Reaction Status Date / Time bee venom protein (honey bee) Allergy Unknown Verified 11/18/21 16:10 diphenhydramine Allergy Unknown Verified 11/18/21 16:10 [From Benadryl] erythromycin base Allergy Unknown Verified 11/18/21 16:10 orange Allergy Unknown Verified 11/18/21 16:10 Sulfa (Sulfonamide Allergy Unknown Verified 11/18/21 16:10 Antibiotics) sulfacetamide AdvReac Unknown Verified 11/18/21 16:10 Review of Systems ROS Statement: Those systems with pertinent positive or pertinent negative responses have been documented in the HPI. ROS Other: All systems not noted in ROS Statement are negative. Past Medical History Past Medical History: Diabetes Mellitus, GERD/Reflux, Hyperlipidemia, Thyroid Disorder Additional Past Medical History / Comment(s): diet controlled diabetes, hypothyroid, food feeling "stuck" in throat History of Any Multi-Drug Resistant Organisms: None Reported Past Surgical History: Hysterectomy Additional Past Surgical History / Comment(s): peg tube placed 11/2021 Past Psychological History: No Psychological Hx Reported Smoking Status: Former smoker Past Alcohol Use History: None Reported Past Drug Use History: None Reported - Past Family History Mother Family Medical History: Diabetes Mellitus, Hypertension Father Family Medical History: Diabetes Mellitus, Hypertension General Exam Limitations: no limitations General appearance: alert, in no apparent distress Head exam: Present: atraumatic, normocephalic, normal inspection Eye exam: Present: normal appearance, PERRL, EOMI. Absent: scleral icterus, conjunctival injection, periorbital swelling Neck exam: Present: normal inspection, full ROM Respiratory exam: Present: normal lung sounds bilaterally. Absent: respiratory distress, wheezes, rales, rhonchi, stridor Cardiovascular Exam: Present: regular rate, normal rhythm, normal heart sounds. Absent: systolic murmur, diastolic murmur, rubs, gallop, clicks GI/Abdominal exam: Present: soft, normal bowel sounds, other (Green purulent discharge around PEG site with mild surrounding erythema). Absent: distended, tenderness, guarding, rebound, rigid Neurological exam: Present: alert, oriented X3, CN II-XII intact Psychiatric exam: Present: normal affect, normal mood Skin exam: Present: warm, dry, intact, normal color. Absent: rash Course Vital Signs 12/04/21 12/04/21 13:55 17:23 Temperature 98.3 F Pulse Rate 77 74 Respiratory 16 16 Rate Blood Pressure 122/57 119/66 O2 Sat by Pulse 95 93 L Oximetry Medical Decision Making - Medical Decision Making This is a 61-year-old female who presents with concern for peg tube infection. Thorough history and examination were performed. Patient is well-appearing and in no apparent distress. She is afebrile. She denies chills. There is green. In discharge surrounding the PEG tube site with mild erythema. The abdomen is soft and nontender. Laboratory values were obtained. Patient has normal white count. She is hypoglycemic at 46. Patient given D50 with good response of glucose. CT of the abdomen and pelvis with contrast was obtained to rule out deeper infectious process. This showed minimal stranding in the subcutaneous fat around the gastrostomy tube that could be an inflammatory process or postsurgical changes. There is no abscess. There is also an incidental findings of bilateral pleural effusions that could related to congestive heart failure. Results discussed with patient. Patient states that her daughter crushes up her pills to give during feeding in the PEG tube. Patient given first dose of clindamycin in the emergency department. She is instructed to take the pill home for administration through the PEG tube. She will be discharged with clindamycin prescription. Patient informed that with consistent vomiting after feeding there is a chance that her infection will not go away or worsen. If this occurs she will need to come to the hospital for IV antibiotics. She was also informed of incidental findings and instructed to follow-up with [facility] care provider regarding these findings. Patient verbalizes understanding and is agreeable to this plan. Dr. Arnold is my attending. - Lab Data Result diagrams: 12/04/21 15:15 12/04/21 15:15 Lab Results 12/04/21 12/04/21 12/04/21 Range/Units 14:55 15:15 15:15 WBC 6.9 (3.8-10.6) k/uL RBC 3.10 L (3.80-5.40) m/uL Hgb 9.0 L (11.4-16.0) gm/dL Hct 27.5 L (34.0-46.0) % MCV 88.7 (80.0-100.0) fL MCH 29.0 (25.0-35.0) pg MCHC 32.7 (31.0-37.0) g/dL RDW 13.2 (11.5-15.5) % Plt Count 500 H D (150-450) k/uL MPV 7.0 Neutrophils % 62 % Lymphocytes % 29 % Monocytes % 4 % Eosinophils % 3 % Basophils % 0 % Neutrophils # 4.3 (1.3-7.7) k/uL Lymphocytes # 2.0 (1.0-4.8) k/uL Monocytes # 0.3 (0-1.0) k/uL Eosinophils # 0.2 (0-0.7) k/uL Basophils # 0.0 (0-0.2) k/uL Hypochromasia Slight Sodium 139 (137-145) mmol/L Potassium 4.1 (3.5-5.1) mmol/L Chloride 110 H (98-107) mmol/L Carbon Dioxide 22 (22-30) mmol/L Anion Gap 7 mmol/L BUN 8 (7-17) mg/dL Creatinine 0.77 (0.52-1.04) mg/dL Est GFR (CKD-EPI)AfAm >90 (>60 ml/min/1.73 sqM) Est GFR (CKD-EPI)NonAf 82 (>60 ml/min/1.73 sqM) Glucose 46 L* (74-99) mg/dL POC Glucose (mg/dL) (75-99) mg/dL POC Glu English And Reading Instructor ID Plasma Lactic Acid Chase 0.9 (0.7-2.0) mmol/L Calcium 9.4 (8.4-10.2) mg/dL Total Bilirubin 0.7 (0.2-1.3) mg/dL AST 27 (14-36) U/L ALT 10 (4-34) U/L Alkaline Phosphatase 59 (38-126) U/L Total Protein 5.5 L (6.3-8.2) g/dL Albumin 2.8 L (3.5-5.0) g/dL Lipase 33 (23-300) U/L 12/04/21 12/04/21 12/04/21 Range/Units 16:02 16:32 18:11 WBC (3.8-10.6) k/uL RBC (3.80-5.40) m/uL Hgb (11.4-16.0) gm/dL Hct (34.0-46.0) % MCV (80.0-100.0) fL MCH (25.0-35.0) pg MCHC (31.0-37.0) g/dL RDW (11.5-15.5) % Plt Count (150-450) k/uL MPV Neutrophils % % Lymphocytes % % Monocytes % % Eosinophils % % Basophils % % Neutrophils # (1.3-7.7) k/uL Lymphocytes # (1.0-4.8) k/uL Monocytes # (0-1.0) k/uL Eosinophils # (0-0.7) k/uL Basophils # (0-0.2) k/uL Hypochromasia Sodium (137-145) mmol/L Potassium (3.5-5.1) mmol/L Chloride (98-107) mmol/L Carbon Dioxide (22-30) mmol/L Anion Gap mmol/L BUN (7-17) mg/dL Creatinine (0.52-1.04) mg/dL Est GFR (CKD-EPI)AfAm (>60 ml/min/1.73 sqM) Est GFR (CKD-EPI)NonAf (>60 ml/min/1.73 sqM) Glucose (74-99) mg/dL POC Glucose (mg/dL) 53 L 136 H 90 (75-99) mg/dL POC Glu English And Reading Instructor ID Jass, Pastora Jass, Pastora Jass, Pastora Plasma Lactic Acid Chase (0.7-2.0) mmol/L Calcium (8.4-10.2) mg/dL Total Bilirubin (0.2-1.3) mg/dL AST (14-36) U/L ALT (4-34) U/L Alkaline Phosphatase (38-126) U/L Total Protein (6.3-8.2) g/dL Albumin (3.5-5.0) g/dL Lipase (23-300) U/L Disposition Clinical Impression: Pain around PEG tube site, Cellulitis Disposition: HOME SELF-CARE Condition: Good Instructions (If sedation given, give patient instructions): Cellulitis (ED) Additional Instructions: Please take medication as directed. Please reach out to year surgeon who inserted the PEG tube regarding the consistent nausea and vomiting with feeding. Please continue to monitor her blood sugar at home as consistent nausea and vomiting after feeding can cause low blood sugar. Return to the emergency department if you experience new, concerning, or worsening symptoms. Prescriptions: Clindamycin [Cleocin] 150 mg PO Q8H 7 Days #63 capsule Is patient prescribed a controlled substance at d/c from ED?: No Referrals: Arvin Ashley MD [Primary Care Provider] - 1-2 days
[2021-12-04 17:24] VITALS: BP 119/66; PULSE 74
--- NOTE | 2021-12-04 17:42 | CT ---
EXAMINATION TYPE: CT abdomen pelvis w con DATE OF EXAM: 12/04/2021 COMPARISON: 10/08/2021 HISTORY: Peg tube infection with abdomen pain CT DLP: 703.2 mGycm Automated exposure control for dose reduction was used. CONTRAST: Performed with IV Contrast, patient injected with 100 mL of Isovue 300. Images obtained from the diaphragm to the floor the pelvis with IV contrast. There are bilateral pleural effusions. Heart size is normal. There is some atelectasis at the lung ba ses. There is no pericardial effusion. Liver spleen appear intact. There are calcified gallstones. Bile ducts are nondilated. There is no pa ncreatic mass. There is gastrostomy tube noted in good position. There is no adrenal mass. Kidneys show satisfactory contrast opacification. There is no hydronephrosi s. Delayed images show normal renal excretion. There is no retroperitoneal adenopathy. There are fluid levels in the large bowel down to the rectum. Bladder distends smoothly. No inguinal hernia. No free fluid in the pelvis. No mesenteric edema. Small bowel pattern is fairly normal. Appen acstro not seen. No sign of thickened appendix. The lumbar vertebra show normal alignment. Disc spaces are fairly normal. No compression fracture. [place] pelvis is intact. Hip joints are intact. IMPRESSION: Gastrostomy tube in good position. Cholelithiasis. Large bowel fluid levels suggestive of some ileus and diarrhea. There is minimal stranding in the subcutaneous fat around the gastrostomy tube it could be inflammato ry process or postsurgical changes and are nonspecific. No abscess. Bilateral pleural effusions that could relate to congestive heart failure and are a change compared t o last exam..
[2021-12-04 18:14] LABS: Glucose,Whole Blood 90 mg/dL (75-99)
[2021-12-04] MEDS ORDERED: CLINDAMYCIN 150 MG CAP PO STA (18:16)
== END 2021-12-04 18:50 | disposition home or self-care (01) ==
LOC: EC 13:49
DX: T85.848A Pain due to other internal prosthetic devices, implants and grafts, initial encounter (principal); L03.311 Cellulitis of abdominal wall; E03.9 Hypothyroidism, unspecified; E11.9 Type 2 diabetes mellitus without complications; E78.5 Hyperlipidemia, unspecified; K21.9 Gastro-esophageal reflux disease without esophagitis; Z79.82 Long term (current) use of aspirin; Z87.891 Personal history of nicotine dependence; Z88.1 Allergy status to other antibiotic agents; Z88.2 Allergy status to sulfonamides; Z88.8 Allergy status to other drugs, medicaments and biological substances; Z91.030 Bee allergy status; Z91.018 Allergy to other foods; Z79.899 Other long term (current) drug therapy; Z79.890 Hormone replacement therapy
CPT/HCPCS: 36415; 80053; 83605; 83690; 85025; 87040; 74177; 99284; 96365; 96375; 96361; J2543; J2405; Q9967

== ENCOUNTER 2021-12-18 22:02 | Inpatient (IN) | payer OTHER ==
--- NOTE | 2021-12-18 22:43 | ED ---
General Adult HPI - General Chief complaint: Weakness Stated complaint: Lethargic Time Seen by Provider: 12/18/21 22:09 Source: patient, EMS Mode of arrival: EMS - History of Present Illness Initial comments: This patient is a 61-year-old woman brought to have evaluation for fatigue and weakness. They state that the patient has had some difficulty tolerating tube feedings. They had to switch her tube feeding to ensure which for the past few days seem to be working. Today the patient did have an episode of vomiting after having one of the tube feedings. They felt that she was less alert than usual starting around 3 in the afternoon. They had to raise their voice to get her attention. They state that this is not her usual and a brought her for evaluation when she continued to require them to raise her voice for her to respond. When I interview the patient, she denies complaints. Patient is having no headache, neck pain, chest, abdomen or back pain. She denies dyspnea. She is aware she is in the hospital but could not state the exact date. She identifies family members at bedside. -: hour(s) Consistency: constant Improves with: none Worsens with: none Associated Symptoms: denies other symptoms Treatments Prior to Arrival: none - Related Data Home Medications Medication Instructions Recorded Confirmed Aspirin EC [Ecotrin Low Dose] 81 mg PO DAILY 10/08/21 12/19/21 Atorvastatin [Lipitor] 40 mg PO DAILY 10/08/21 12/19/21 Levothyroxine Sodium [Synthroid] 88 mcg PO DAILY 10/08/21 12/19/21 Melatonin 10 mg PO HS 10/08/21 12/19/21 Omeprazole 40 mg PO DAILY 10/08/21 12/19/21 Natual Calm Magnesium Citrate 1 tsp PO DAILY 11/18/21 12/19/21 Powder Ferrous Sulfate [Feosol] 325 mg PO BID 12/19/21 12/19/21 Previous Rx's Medication Instructions Recorded Acetaminophen Tab [Tylenol] 650 mg PO Q6HR PRN tab 11/26/21 Midodrine [ProAmatine] 10 mg PO AC-TID #120 tab 11/26/21 Pramipexole [Mirapex] 0.25 mg PO HS #30 tab 11/26/21 Sodium Chloride Tab 2 gm PO QID #120 tab 11/26/21 Allergies Allergy/AdvReac Type Severity Reaction Status Date / Time bee venom protein (honey bee) Allergy Unknown Verified 12/19/21 07:40 diphenhydramine Allergy Unknown Verified 12/19/21 07:40 [From Benadryl] erythromycin base Allergy Unknown Verified 12/19/21 07:40 orange Allergy Unknown Verified 12/19/21 07:40 Sulfa (Sulfonamide Allergy Unknown Verified 12/19/21 07:40 Antibiotics) sulfacetamide AdvReac Unknown Verified 12/19/21 07:40 Review of Systems ROS Statement: Those systems with pertinent positive or pertinent negative responses have been documented in the HPI. ROS Other: All systems not noted in ROS Statement are negative. Constitutional: Reports: weakness. Denies: fever Eyes: Denies: vision change Respiratory: Denies: cough, dyspnea Cardiovascular: Denies: chest pain, palpitations, edema, syncope Gastrointestinal: Reports: as per HPI, vomiting (One episode). Denies: abdominal pain, hematemesis, melena, hematochezia Genitourinary: Denies: dysuria, hematuria Musculoskeletal: Denies: back pain Skin: Denies: rash Neurological: Denies: headache, weakness, numbness Past Medical History Past Medical History: Diabetes Mellitus, GERD/Reflux, Hyperlipidemia, Thyroid Disorder Additional Past Medical History / Comment(s): diet controlled diabetes, hypothyroid, food feeling "stuck" in throat History of Any Multi-Drug Resistant Organisms: None Reported Past Surgical History: Hysterectomy Additional Past Surgical History / Comment(s): peg tube placed 11/2021 Past Psychological History: No Psychological Hx Reported Smoking Status: Former smoker Past Alcohol Use History: None Reported Past Drug Use History: None Reported - Past Family History Mother Family Medical History: Diabetes Mellitus, Hypertension Father Family Medical History: Diabetes Mellitus, Hypertension General Exam General appearance: alert, in no apparent distress Head exam: Present: atraumatic, normocephalic Eye exam: Present: normal appearance. Absent: scleral icterus, conjunctival injection ENT exam: Present: mucous membranes dry Neck exam: Present: normal inspection Respiratory exam: Present: normal lung sounds bilaterally. Absent: respiratory distress, wheezes, rales, rhonchi, stridor Cardiovascular Exam: Present: regular rate, normal rhythm, normal heart sounds. Absent: systolic murmur, diastolic murmur, rubs, gallop GI/Abdominal exam: Present: soft. Absent: distended, tenderness, guarding, rebound, rigid, mass Extremities exam: Present: normal inspection, normal capillary refill. Absent: pedal edema, calf tenderness Back exam: Present: normal inspection. Absent: CVA tenderness (R), CVA tenderness (L) Neurological exam: Present: alert Skin exam: Present: warm, dry, intact, normal color. Absent: rash Course Vital Signs 12/18/21 12/18/21 12/19/21 22:08 22:16 00:42 Temperature 98.8 F Pulse Rate 97 83 84 Respiratory 18 18 18 Rate Blood Pressure 119/43 92/51 104/40 O2 Sat by Pulse 100 98 98 Oximetry 12/19/21 01:32 Temperature 98.7 F Pulse Rate 84 Respiratory 18 Rate Blood Pressure 116/72 O2 Sat by Pulse 98 Oximetry EKG Findings - EKG Results: EKG: interpreted by ERMD, sinus rhythm (Rate 98 bpm), normal axis, normal QRS - Blocks, [place], Hypertrophy, ST Abn: Repolarization changes or abnormalities: nonspecific abnormality, ST segment, and/or T wave Medical Decision Making - Lab Data Result diagrams: 12/18/21 23:31 12/20/21 08:26 Lab Results 12/18/21 12/18/21 12/18/21 Range/Units 23:31 23:31 23:31 WBC 8.6 (3.8-10.6) k/uL RBC 3.05 L (3.80-5.40) m/uL Hgb 8.5 L (11.4-16.0) gm/dL Hct 26.4 L (34.0-46.0) % MCV 86.7 (80.0-100.0) fL MCH 27.9 (25.0-35.0) pg MCHC 32.1 (31.0-37.0) g/dL RDW 15.5 (11.5-15.5) % Plt Count 230 (150-450) k/uL MPV 7.4 Neutrophils % 58 % Lymphocytes % 28 % Monocytes % 11 % Eosinophils % 1 % Basophils % 1 % Neutrophils # 5.0 (1.3-7.7) k/uL Lymphocytes # 2.4 (1.0-4.8) k/uL Monocytes # 0.9 (0-1.0) k/uL Eosinophils # 0.1 (0-0.7) k/uL Basophils # 0.1 (0-0.2) k/uL Poikilocytosis Slight Sodium 133 L (137-145) mmol/L Potassium 3.3 L (3.5-5.1) mmol/L Chloride 104 (98-107) mmol/L Carbon Dioxide 24 (22-30) mmol/L Anion Gap 5 mmol/L BUN 13 (7-17) mg/dL Creatinine 0.86 (0.52-1.04) mg/dL Est GFR (CKD-EPI)AfAm 84 (>60 ml/min/1.73 sqM) Est GFR (CKD-EPI)NonAf 73 (>60 ml/min/1.73 sqM) Glucose 94 (74-99) mg/dL Plasma Lactic Acid Chase (0.7-2.0) mmol/L Calcium 8.5 (8.4-10.2) mg/dL Magnesium 1.0 L (1.6-2.3) mg/dL Total Bilirubin 0.9 (0.2-1.3) mg/dL AST 28 (14-36) U/L ALT 9 (4-34) U/L Alkaline Phosphatase 57 (38-126) U/L Troponin I (0.000-0.034) ng/mL NT-Pro-B Natriuret Pep pg/mL Total Protein 4.8 L (6.3-8.2) g/dL Albumin 2.4 L (3.5-5.0) g/dL Urine Color Yellow Urine Appearance Clear (Clear) Urine pH 5.0 (5.0-8.0) Ur Specific [place] 1.012 (1.001-1.035) Urine Protein Trace H (Negative) Urine Glucose (UA) Negative (Negative) Urine Ketones Negative (Negative) Urine Blood Negative (Negative) Urine Nitrite Negative (Negative) Urine Bilirubin Negative (Negative) Urine Urobilinogen <2.0 (<2.0) mg/dL Ur Leukocyte Esterase Negative (Negative) 12/18/21 12/18/21 12/18/21 Range/Units 23:31 23:31 23:31 WBC (3.8-10.6) k/uL RBC (3.80-5.40) m/uL Hgb (11.4-16.0) gm/dL Hct (34.0-46.0) % MCV (80.0-100.0) fL MCH (25.0-35.0) pg MCHC (31.0-37.0) g/dL RDW (11.5-15.5) % Plt Count (150-450) k/uL MPV Neutrophils % % Lymphocytes % % Monocytes % % Eosinophils % % Basophils % % Neutrophils # (1.3-7.7) k/uL Lymphocytes # (1.0-4.8) k/uL Monocytes # (0-1.0) k/uL Eosinophils # (0-0.7) k/uL Basophils # (0-0.2) k/uL Poikilocytosis Sodium (137-145) mmol/L Potassium (3.5-5.1) mmol/L Chloride (98-107) mmol/L Carbon Dioxide (22-30) mmol/L Anion Gap mmol/L BUN (7-17) mg/dL Creatinine (0.52-1.04) mg/dL Est GFR (CKD-EPI)AfAm (>60 ml/min/1.73 sqM) Est GFR (CKD-EPI)NonAf (>60 ml/min/1.73 sqM) Glucose (74-99) mg/dL Plasma Lactic Acid Chase 1.3 (0.7-2.0) mmol/L Calcium (8.4-10.2) mg/dL Magnesium (1.6-2.3) mg/dL Total Bilirubin (0.2-1.3) mg/dL AST (14-36) U/L ALT (4-34) U/L Alkaline Phosphatase (38-126) U/L Troponin I 0.091 H* (0.000-0.034) ng/mL NT-Pro-B Natriuret Pep 3150 pg/mL Total Protein (6.3-8.2) g/dL Albumin (3.5-5.0) g/dL Urine Color Urine Appearance (Clear) Urine pH (5.0-8.0) Ur Specific [place] (1.001-1.035) Urine Protein (Negative) Urine Glucose (UA) (Negative) Urine Ketones (Negative) Urine Blood (Negative) Urine Nitrite (Negative) Urine Bilirubin (Negative) Urine Urobilinogen (<2.0) mg/dL Ur Leukocyte Esterase (Negative) Disposition Clinical Impression: Pneumonia, Elevated troponin I level Disposition: ADMITTED IP TO THIS HOSP Condition: Serious Is patient prescribed a controlled substance at d/c from ED?: No
--- NOTE | 2021-12-18 23:30 | XR ---
EXAMINATION TYPE: XR chest 1V DATE OF EXAM: 12/18/2021 COMPARISON: 11/23/2021 HISTORY: Weakness TECHNIQUE: Single view FINDINGS: There is some pulmonary vascular congestion. There is blunting of the costophrenic angles a nd infiltrated both lung bases. Heart is top normal in size. IMPRESSION: Mild congestive heart failure with pleural effusions and lower lobe pneumonia. Infiltrate s at the lung bases increased compared to last exam.
[2021-12-18 23:57] LABS: Basophils # (A) 0.1 k/uL (0-0.2); Basophils % (A) 1 %; Eosinophils # (A) 0.1 k/uL (0-0.7); Eosinophils % (A) 1 %; HCT 26.4 % (34.0-46.0); HGB 8.5 gm/dL (11.4-16.0); Lymphocytes # (A) 2.4 k/uL (1.0-4.8); Lymphocytes % (A) 28 %; MCH 27.9 pg (25.0-35.0); MCHC 32.1 g/dL (31.0-37.0); MCV 86.7 fL (80.0-100.0); Mean Platelet Volume 7.4; Monocytes # (A) 0.9 k/uL (0-1.0); Monocytes % (A) 11 %; Neutrophils % (A) 58 %; Platelet Count 230 k/uL (150-450); Poikilocytosis Slight; RBC 3.05 m/uL (3.80-5.40); RDW 15.5 % (11.5-15.5); WBC 8.6 k/uL (3.8-10.6)
[2021-12-19 00:07] LABS: Albumin 2.4 g/dL (3.5-5.0); Calcium 8.5 mg/dL (8.4-10.2); Potassium 3.3 mmol/L (3.5-5.1); Total Bilirubin 0.9 mg/dL (0.2-1.3); Total Protein 4.8 g/dL (6.3-8.2)
[2021-12-19 00:34] LABS: Appearance,Urine Clear (Clear); Bilirubin,Urine Negative (Negative); Blood,Urine Negative (Negative); Color,Urine Yellow; Glucose,Urine (UA) Negative (Negative); Ketones,Urine Negative (Negative); Leukocyte Esterase,Urine Negative (Negative); Nitrite,Urine Negative (Negative); Protein,Urine Trace (Negative); Specific Gravity,Urine 1.012 (1.001-1.035); Urobilinogen,Urine <2.0 mg/dL (<2.0)
[2021-12-19] MEDS ORDERED: MAGNESIUM SULFATE-D5W PMX 1 GM in DEXTROSE/WATER 1 100ML.BAG IVPB ONE (00:47)
[2021-12-19] MEDS ORDERED: PNEUMONIA PROTOCOL UTILIZED 1 EACH MISC PO PRN (00:50)
[2021-12-19] MEDS ORDERED: AZITHROMYCIN 500 MG in SODIUM CHLORIDE 0.9% 250 ML IVPB STA (00:50)
[2021-12-19] MEDS: SODIUM CHLORIDE 0.9% 1,000 ML IV SCH (01:21)
[2021-12-19] MEDS ORDERED: AZITHROMYCIN 500 MG in SODIUM CHLORIDE 0.9% 250 ML IVPB ONE (03:00)
[2021-12-19 06:02] LABS: Glucose,Whole Blood 84 mg/dL (75-99)
[2021-12-19 11:44] LABS: Glucose,Whole Blood 67 mg/dL (75-99)
[2021-12-19 12:10] LABS: Glucose,Whole Blood 68 mg/dL (75-99)
[2021-12-19 12:37] LABS: Glucose,Whole Blood 81 mg/dL (75-99)
[2021-12-19] MEDS: MIDODRINE 5 MG TAB PO SCH ×3 (14:07→15:45)
[2021-12-19] MEDS ORDERED: FUROSEMIDE 10 MG/ML 2 ML VIAL IV STA (15:22)
--- NOTE | 2021-12-19 15:23 | P.HPIM ---
History of Present Illness H&P Date: 12/19/21 Chief Complaint: Condition talk This is a pleasant 61-year-old patient, follows with Dr. Ashley. Chronic stable medical conditions include diabetes, GERD, hypertension dyslipidemia, hypothyroid, diet-controlled diabetes. Adjustment disorder. Because of presbyesophagus, poor oral intake patient had a PEG tube placed on November [address] Carranza. Patient now presents having some trouble tolerating the tube feeding. Had to change it to feeding and patient using Ensure Plus last few days that she's been tolerating. Patient did have one bout of vomiting. Patient felt she was unable to speak today. Could not talk. Daughter thought so fine. Denied any trouble swallowing as she does take liquids. No weakness in the office. No headache. No double vision. Review of systems: GEN.: Tired EYES: None HEENT: None NECK: None RESPIRATORY: None CARDIOVASCULAR: None GASTROINTESTINAL: None GENITOURINARY: PEG tube feeding] MUSCULOSKELETAL: None LYMPHATICS: None HEMATOLOGICAL: None PSYCHIATRY: Anxious NEUROLOGICAL: Does use a walker Past medical history to include: Diabetes, GERD, hyperlipidemia, hypothyroid, presbyesophagus, feeding tube Social history: Lives with . Did smoke in the past. No alcohol. Family history: Diabetes and hypertension Physical examination: VITAL SIGNS: 98.8, 97, 18, 190s/43, 100% on 2 L GENERAL: BMI 21.8, laying in bed, awake, tired. EYES: Pupils equal. Conjunctiva normal. HEENT: External appearance of nose and ears normal, oral cavity dry mucous membranes. NECK: JVD not raised; masses not palpable. HEART: First and second heart sounds are normal; no edema. LUNGS: Respiratory rate normal; clear to auscultation. ABDOMEN: Soft, nontender, liver spleen not palpable, no masses palpable. PEG tube PSYCH: Alert and oriented x3; mood and affect tiredl. MUSCULOSKELETAL:No Clubbing/cyanosis;muscles-grossly intact. OA NEUROLOGICAL: Cranial nerves grossly intact; no facial asymmetry, power and sensation grossly intact. LYMPHATICS: No lymph nodes palpable in the axilla and neck INVESTIGATIONS, reviewed in the clinical context: White count 8.6 hemoglobin 8.5 platelets 2:30 sodium 133 potassium 3.3 c reatinine 0.86 Troponin I 0.091 UA: Unremarkable EKG tracing personally reviewed by me-normal sinus rhythm. Nonspecific ST-T wave changes. Rate 98 Chest x-ray film personally reviewed by me-venous prominence/infiltrate Assessment and plan: -Possible TIA. Loss of speech, recovered. Continue aspirin. Computed tomography scan brain without contrast. MRI of the brain. Carotid Doppler. -Possible right lower lobe pneumonia. Suspect gram-negative organism. IV ceftriaxone -Possible acute congestive heart failure exacerbation. Hold sodium tablets. 2-D echocardiogram. 1 dose of IV Lasix 20 mg. -Severe dysphagia secondary to presbyesophagus diagnosed recently by barium swallow. Patient barely able to eat. Not swallow pills at times recent EGD was unremarkable. Indirect laryngoscopy unremarkable. Soft tissue CT of the neck unremarkable. November [address] PEG tube placed by Dr[address] Carranza. -Adjustment disorder with low mood Remeron 7.5 mg daily at bedtime -Duodenitis Protonix -Chronic idiopathic insomnia Melatonin 10 mg daily at bedtime -Hyperlipidemia Lipitor 40 mg daily -Hypothyroid Synthroid 88 g daily -Persistent hypotension from decreased oral intake: Better midodrine 10 mg 3 times a day. DAWN stockings.. -GERD Protonix IV ceftriaxone. IV Lasix 20 mg 1 dose. 2-D echocardiogram. Computed tomography scan of the brain. MRI of the brain with and without contrast. Carotid Doppler. Other medications to continue. Dietitian for tube feeding. Given the complexity and severity of patient's condition expect the patient to be in the hospital at least for 2 overnights Past Medical History Past Medical History: Diabetes Mellitus, GERD/Reflux, Hyperlipidemia, Thyroid Disorder Additional Past Medical History / Comment(s): diet controlled diabetes, hypothyroid, food feeling "stuck" in throat History of Any Multi-Drug Resistant Organisms: None Reported Past Surgical History: Hysterectomy Additional Past Surgical History / Comment(s): peg tube placed 11/2021 Past Anesthesia/Blood Transfusion Reactions: No Reported Reaction Past Psychological History: No Psychological Hx Reported Smoking Status: Former smoker Past Alcohol Use History: None Reported Past Drug Use History: None Reported - Past Family History Mother Family Medical History: Diabetes Mellitus, Hypertension Father Family Medical History: Diabetes Mellitus, Hypertension Medications and Allergies Home Medications Medication Instructions Recorded Confirmed Type Aspirin EC [Ecotrin Low Dose] 81 mg PO DAILY 10/08/21 12/19/21 History Atorvastatin [Lipitor] 40 mg PO DAILY 10/08/21 12/19/21 History Levothyroxine Sodium [Synthroid] 88 mcg PO DAILY 10/08/21 12/19/21 History Melatonin 10 mg PO HS 10/08/21 12/19/21 History Omeprazole 40 mg PO DAILY 10/08/21 12/19/21 History Natual Calm Magnesium Citrate 1 tsp PO DAILY 11/18/21 12/19/21 History Powder Acetaminophen Tab [Tylenol] 650 mg PO Q6HR PRN tab 11/26/21 12/19/21 Rx Midodrine [ProAmatine] 10 mg PO AC-TID #120 tab 11/26/21 12/19/21 Rx Pramipexole [Mirapex] 0.25 mg PO HS #30 tab 11/26/21 12/19/21 Rx Sodium Chloride Tab 2 gm PO QID #120 tab 11/26/21 12/19/21 Rx Ferrous Sulfate [Feosol] 325 mg PO BID 12/19/21 12/19/21 History Allergies Allergy/AdvReac Type Severity Reaction Status Date / Time bee venom protein (honey bee) Allergy Unknown Verified 12/19/21 07:40 diphenhydramine Allergy Unknown Verified 12/19/21 07:40 [From Benadryl] erythromycin base Allergy Unknown Verified 12/19/21 07:40 orange Allergy Unknown Verified 12/19/21 07:40 Sulfa (Sulfonamide Allergy Unknown Verified 12/19/21 07:40 Antibiotics) sulfacetamide AdvReac Unknown Verified 12/19/21 07:40 Physical Exam Vitals: Vital Signs Temp Pulse Pulse Resp BP BP Pulse Ox 12/19/21 06:02 100.5 F H 18 97 12/19/21 04:00 98.2 F 86 18 104/66 95 12/19/21 01:32 98.7 F 84 18 116/72 98 12/19/21 00:42 84 18 104/40 98 12/18/21 22:16 83 18 92/51 98 12/18/21 22:08 98.8 F 97 18 119/43 100 Intake and Output 12/18/21 12/19/21 12/19/21 22:59 06:59 14:59 Other: # Voids 1 Weight 54.431 kg 57.606 kg Results CBC & Chem 7: 12/18/21 23:31 12/18/21 23:31 Labs: Abnormal Lab Results - Last 24 Hours (Table) 12/18/21 12/18/21 12/18/21 Range/Units 23:31 23:31 23:31 RBC 3.05 L (3.80-5.40) m/uL Hgb 8.5 L (11.4-16.0) gm/dL Hct 26.4 L (34.0-46.0) % Sodium 133 L (137-145) mmol/L Potassium 3.3 L (3.5-5.1) mmol/L Magnesium 1.0 L (1.6-2.3) mg/dL Troponin I (0.000-0.034) ng/mL Total Protein 4.8 L (6.3-8.2) g/dL Albumin 2.4 L (3.5-5.0) g/dL Urine Protein Trace H (Negative) 12/18/21 12/19/21 Range/Units 23:31 07:00 RBC (3.80-5.40) m/uL Hgb (11.4-16.0) gm/dL Hct (34.0-46.0) % Sodium (137-145) mmol/L Potassium (3.5-5.1) mmol/L Magnesium 1.3 L (1.6-2.3) mg/dL Troponin I 0.091 H* (0.000-0.034) ng/mL Total Protein (6.3-8.2) g/dL Albumin (3.5-5.0) g/dL Urine Protein (Negative) Thrombosis Risk Factor Assmnt - Choose All That Apply Other Risk Factors: Yes Each Risk Factor Represents 2 Points: Age 61-74 years Thrombosis Risk Factor Assessment Total Risk Factor Score: 2 Thrombosis Risk Factor Assessment Level: Low Risk
[2021-12-19] MEDS: LEVOTHYROXINE 88 MCG TAB PO SCH (15:45)
[2021-12-19] MEDS: AZITHROMYCIN 500 MG TAB PO SCH (15:45)
[2021-12-19] MEDS: PANTOPRAZOLE 40 MG TABLET PO SCH (15:45)
[2021-12-19] MEDS: ATORVASTATIN 40 MG TAB PO SCH (15:46)
[2021-12-19] MEDS: ASPIRIN 81 MG PO SCH (15:46)
[2021-12-19] MEDS: FERROUS SULFATE 325 MG TAB PO SCH ×2 (15:46→21:54)
--- NOTE | 2021-12-19 15:59 | US ---
EXAMINATION TYPE: US carotid duplex BILAT DATE OF EXAM: 12/19/2021 COMPARISON: NONE CLINICAL HISTORY: Loss of speech, recovered. EXAM MEASUREMENTS: RIGHT: Peak Systolic Velocity (PSV) cm/sec ----- Right CCA: 66.9 ----- Right ICA: 111.2 ----- Right ECA: 132.3 ICA/CCA ratio: 1.7 RIGHT: End Diastole cm/sec ----- Right CCA: 15.3 ----- Right ICA: 37.4 ----- Right ECA: 12.8 LEFT: Peak Systolic Velocity (PSV) cm/sec ----- Left CCA: 75.7 ----- Left ICA: 122.6 ----- Left ECA: 112.9 ICA/CCA ratio: 1.6 LEFT: End Diastole cm/sec ----- Left CCA: 23.0 ----- Left ICA: 33.8 ----- Left ECA: 14.4 VERTEBRALS (direction of flow): Right Vertebral: Antegrade Left Vertebral: Antegrade Rhythm: Normal Mild plaque bilateral bifurcations. no evidence of significant stenosis IMPRESSION: No hemodynamically significant stenosis in either internal carotid artery. Criteria for Assigning % of Stenosis / Diameter reduction (Estimation based on the indirect measurements of the internal carotid artery velocities (ICA PSV). 1. Normal (no stenosis)=ICA PSV < 125 cm/s: ratio < 2.0: ICA EDV<40 cm/s. 2. Less than 50% stenosis=ICA PSV < 125 cm/s: ratio < 2.0: ICA EDV<40 cm/s. 3. 50 to 69% stenosis=ICA PSV of 125 to 230 cm/s: ration 2.0 ? 4.0: ICA EDV 40-100 cm/s. 4. Greater than 70% stenosis to near occlusion= ICA PSV > 230 cm/s: ratio > 4.0: ICA EDV > 100 cm/s. 5. Near occlusion= ICA PSV velocities may be low or undetectable: variable ratio and ICA EDV. 6. Total occlusion=unable to detect flow.
[2021-12-19 16:31] LABS: Glucose,Whole Blood 100 mg/dL (75-99)
--- NOTE | 2021-12-19 17:31 | CT ---
EXAMINATION TYPE: CT brain wo con DATE OF EXAM: 12/19/2021 COMPARISON: None HISTORY: Loss of speech, recovered CT DLP: 1111.4 mGycm Automated exposure control for dose reduction was used. Images of the brain obtained without contrast. Ventricles have normal size. There is no mass effect or midline shift. There is no sign of intracrani al hemorrhage. There is fairly normal aeration of the mastoid sinuses. Skull base is intact. IMPRESSION: Negative unenhanced head CT scan.
[2021-12-19 20:55] LABS: Glucose,Whole Blood 84 mg/dL (75-99)
[2021-12-19] MEDS: PRAMIPEXOLE 0.25 MG TAB PO SCH (21:54)
[2021-12-19] MEDS: MAGNESIUM OXIDE 400 MG TAB PO SCH (21:54)
[2021-12-19] MEDS: MELATONIN 5 MG TABLET PO SCH (21:54)
[2021-12-19] MEDS ORDERED: ONDANSETRON 4 MG/2 ML VIAL IVP PRN (22:32)
[2021-12-20] MEDS: ACETAMINOPHEN TAB 325 MG TAB PO PRN (00:43)
[2021-12-20] MEDS: SODIUM CHLORIDE 0.9% 1,000 ML IV SCH (01:52)
[2021-12-20 06:04] LABS: Glucose,Whole Blood 64 mg/dL (75-99)
[2021-12-20] MEDS: LEVOTHYROXINE 88 MCG TAB PO SCH (06:15)
[2021-12-20] MEDS: MIDODRINE 5 MG TAB PO SCH ×3 (06:35→17:39)
[2021-12-20] MEDS: PANTOPRAZOLE 40 MG TABLET PO SCH (06:53)
[2021-12-20 07:46] LABS: Glucose,Whole Blood 67 mg/dL (75-99)
[2021-12-20 07:46] LABS: Glucose,Whole Blood 68 mg/dL (75-99)
[2021-12-20 07:46] LABS: Glucose,Whole Blood 78 mg/dL (75-99)
[2021-12-20] MEDS: ATORVASTATIN 40 MG TAB PO SCH (08:37)
[2021-12-20] MEDS: MAGNESIUM OXIDE 400 MG TAB PO SCH ×2 (08:37→22:03)
[2021-12-20] MEDS: FERROUS SULFATE 325 MG TAB PO SCH ×2 (08:37→22:03)
[2021-12-20] MEDS: ASPIRIN 81 MG PO SCH (08:38)
[2021-12-20] MEDS: AZITHROMYCIN 500 MG TAB PO SCH (08:38)
[2021-12-20 09:40] LABS: Calcium 8.2 mg/dL (8.4-10.2); Potassium 2.9 mmol/L (3.5-5.1)
--- NOTE | 2021-12-20 11:04 | CA ---
Transthoracic Echo Report Name: Sagrario Salvador Age: 61 Gender: F : 1960 Exam Date: 12/20/2021 08:06 Exam Location: [facility] Ht (in): 64 Wt (lb): 127 Ordering Physician: Ky Rivera MD Attending/Referring Phys: Certified Legal Investigator BZ Procedure CPT: Indications: chf Cardiac Hx: Technical Quality: Excellent Contrast 1: Total Dose (mL): Contrast 2: Total Dose (mL): MEASUREMENTS (Male / Female) Normal Values 2D ECHO LV Diastolic Diameter PLAX 4.3 cm 4.2 - 5.9 / 3.9 - 5.3 cm LV Systolic Diameter PLAX 2.6 cm IVS Diastolic Thickness 1.0 cm 0.6 - 1.0 / 0.6 - 0.9 cm LVPW Diastolic Thickness 0.9 cm 0.6 - 1.0 / 0.6 - 0.9 cm LV Relative Wall Thickness 0.4 RV Internal Dim ED PLAX 2.7 cm LA Systolic Diameter LX 2.7 cm 3.0 - 4.0 / 2.7 - 3.8 cm LA Volume 33.0 cm??? 18 - 58 / 22 - 52 cm??? M-MODE Aortic Root Diameter MM 2.9 cm MV E Point Septal Separation 0.6 cm AV Cusp Separation MM 1.9 cm DOPPLER AV Peak Velocity 151.3 cm/s AV Peak Gradient 9.2 mmHg MV Area PHT 2.5 cm??? Mitral E Point Velocity 112.2 cm/s Mitral A Point Velocity 87.4 cm/s Mitral E to A Ratio 1.3 MV Deceleration Time 298.7 ms TR Peak Velocity 287.2 cm/s TR Peak Gradient 33.0 mmHg Right Ventricular Systolic Press 37.4 mmHg FINDINGS Left Ventricle Left ventricular ejection fraction is estimated at 60-65 %. Normal Left ventricular size, wall thickness, systolic function with no obvious regional wall motion abnormalities. Normal Left ventricular diastolic filling pattern. Right Ventricle Normal right ventricular size and function. Mild pulmonary hypertension. Right Atrium Normal right atrial size. Left Atrium Normal left atrial size. No evidence for an atrial septal defect. Mitral Valve Structurally normal mitral valve. Trace to mild mitral regurgitation. Aortic Valve Trileaflet aortic valve. No aortic valve stenosis or regurgitation. Tricuspid Valve Mild tricuspid regurgitation. Pulmonic Valve Trace pulmonic regurgitation. Pericardium Normal pericardium. Aorta Normal size aortic root and proximal ascending aorta. CONCLUSIONS Normal LV systolic function Previewed by: Dr. Mc Ortiz MD (Electronically Signed) Final Date: 20 Dec 2021 11:03
[2021-12-20 11:50] LABS: Glucose,Whole Blood 64 mg/dL (75-99)
[2021-12-20 12:07] LABS: Glucose,Whole Blood 68 mg/dL (75-99)
[2021-12-20 12:34] LABS: Glucose,Whole Blood 64 mg/dL (75-99)
[2021-12-20 12:55] LABS: Glucose,Whole Blood 68 mg/dL (75-99)
[2021-12-20 12:55] LABS: Glucose,Whole Blood 74 mg/dL (75-99)
--- NOTE | 2021-12-20 13:47 | MR ---
EXAMINATION TYPE: MR brain wo con DATE OF EXAM: 12/20/2021 COMPARISON: CT brain from 1 day earlier. HISTORY: Loss of speech, recovered. TECHNIQUE: Multiplanar, multisequence imaging of the brain and brainstem is performed without IV cont rast. FINDINGS: Slightly suboptimal due to patient motion related to claustrophobia. Diffusion weighted images demonstrate no evidence of a recent infarct or other diffusion abnormality. There is no extraaxial fluid collection or significant white matter signal abnormality. The ventricu lar system and cisternal spaces are normal in size and appearance. The brain volume is age appropria te. Midline structures demonstrate normal morphology. The craniocervical junction appears within normal limits. Normal vascular flow voids are present. Mild to moderate mucosal thickening involving ethmoid sinus bilaterally is greater on the left. The globes are intact bilaterally. Mild mucosal thickening involving sphenoid sinuses bilaterally. Mild mucosal thickening left maxillary sinus inferiorly. Pat kecia fluid signal inferior right mastoid air cells now present IMPRESSION: 1. No MRI evidence for a recent infarct. 2. Chronic paranasal sinus disease redemonstrated. Possible new or developing right-sided mastoiditis , correlate clinically.
[2021-12-20 13:48] LABS: Glucose,Whole Blood 70 mg/dL (75-99)
--- NOTE | 2021-12-20 15:27 | P.PN ---
Progress Note - Text Progress Note Date: 12/20/21 Chief Complaint: Could not talk This is a pleasant 61-year-old patient, follows with Dr. Ashley. Chronic stable medical conditions include diabetes, GERD, hypertension dyslipidemia, hypothyroid, diet-controlled diabetes. Adjustment disorder. Because of presbyesophagus, poor oral intake patient had a PEG tube placed on November [address] Carranza. Patient now presents having some trouble tolerating the tube feeding. Had to change it to feeding and patient using Ensure Plus last few days that she's been tolerating. Patient did have one bout of vomiting. Patient felt she was unable to speak today. Could not talk. Daughter thought so fine. Denied any trouble swallowing as she does take liquids. No weakness in the office. No headache. No double vision. December 20: Getting 2 feeding. Going for MRI this afternoon. Carotid unremarkable. 2 feeding was held last night. Because of vomiting. Different formula being started by dietitian today. Active Medications Acetaminophen (Acetaminophen Tab 325 Mg Tab) 650 mg PO Q4HR PRN PRN Reason: Fever and/ or Pain Last Admin: 12/20/21 00:43 Dose: 650 mg Documented by: Aspirin (Aspirin 81 Mg) 81 mg PO DAILY [facility] Last Admin: 12/20/21 08:38 Dose: 81 mg Documented by: Atorvastatin Calcium (Atorvastatin 40 Mg Tab) 40 mg PO DAILY [facility] Last Admin: 12/20/21 08:37 Dose: 40 mg Documented by: Ferrous Sulfate (Ferrous Sulfate 325 Mg Tab) 325 mg PO BID [facility] Last Admin: 12/20/21 08:37 Dose: 325 mg Documented by: Sodium Chloride (Saline 0.9%) 1,000 mls @ 20 mls/hr IV .Q24H [facility] Last Admin: 12/20/21 01:52 Dose: Not Given Documented by: Ceftriaxone Sodium 2 gm/ (Sodium Chloride) 50 mls @ 100 mls/hr IVPB Q24H [facility]; Protocol Stop: 12/23/21 03:29 Last Admin: 12/20/21 03:29 Dose: 100 mls/hr Documented by: Levothyroxine Sodium (Levothyroxine 88 Mcg Tab) 88 mcg PO DAILY@0630 [facility] Last Admin: 12/20/21 06:15 Dose: 88 mcg Documented by: Magnesium Oxide (Magnesium Oxide 400 Mg Tab) 200 mg PO BID [facility] Last Admin: 12/20/21 08:37 Dose: 200 mg Documented by: Melatonin (Melatonin 5 Mg Tablet) 10 mg PO [facility] Last Admin: 12/19/21 21:54 Dose: 10 mg Documented by: Midodrine (Midodrine 5 Mg Tab) 10 mg PO AC-TID [facility] Last Admin: 12/20/21 13:49 Dose: 10 mg Documented by: Miscellaneous Information (Pneumonia Protocol Utilized 1 Each [facility]) 1 each PO ONCE PRN PRN Reason: Per Protocol Ondansetron HCl (Ondansetron 4 Mg/2 Ml Vial) 4 mg IVP Q6HR PRN PRN Reason: Nausea And Vomiting Last Admin: 12/19/21 22:40 Dose: 4 mg Documented by: Pantoprazole Sodium (Pantoprazole 40 Mg Tablet) 40 mg PO DAILY@0730 [facility] Last Admin: 12/20/21 06:53 Dose: 40 mg Documented by: Pramipexole Dihydrochloride (Pramipexole 0.25 Mg Tab) 0.25 mg PO [facility] Last Admin: 12/19/21 21:54 Dose: 0.25 mg Documented by: Past medical history to include: Diabetes, GERD, hyperlipidemia, hypothyroid, presbyesophagus, feeding tube Social history: Lives with . Did smoke in the past. No alcohol. Family history: Diabetes and hypertension Physical examination: VITAL SIGNS: 98.1, 79, 18, 94/58, 98% on 2 L GENERAL: , laying in bed, awake, tired. EYES: Pupils equal. Conjunctiva normal. HEENT: External appearance of nose and ears normal, oral cavity dry mucous mem branes. NECK: JVD not raised; masses not palpable. HEART: First and second heart sounds are normal; no edema. LUNGS: Respiratory rate normal; clear to auscultation. ABDOMEN: Soft, nontender, liver spleen not palpable, no masses palpable. PEG tube PSYCH: Alert and oriented x3; mood and affect tiredl. MUSCULOSKELETAL:No Clubbing/cyanosis;muscles-grossly intact. OA NEUROLOGICAL: Cranial nerves grossly intact; no facial asymmetry, power and sensation grossly intact. INVESTIGATIONS, reviewed in the clinical context: Carotid Doppler: No symptoms stenosis 2-D echo: EF 60-65% White count 8.6 hemoglobin 8.5 platelets 2:30 sodium 133 potassium 3.3 creatinine 0.86 Troponin I 0.091 UA: Unremarkable EKG tracing personally reviewed by me-normal sinus rhythm. Nonspecific ST-T wave changes. Rate 98 Chest x-ray film personally reviewed by me-venous prominence/infiltrate Assessment and plan: -Possible TIA. Loss of speech, recovered. Continue aspirin. Plavix Computed tomography scan brain without contrast. Pending MRI of the brain. Neurology consult -Possible right lower lobe pneumonia. Suspect gram-negative organism. IV ceftriaxone -Possible acute congestive heart failure exacerbation. Hold sodium tablets. 2-D echocardiogram. 1 dose of IV Lasix 20 mg. -Severe dysphagia secondary to presbyesophagus diagnosed recently by barium swallow. Patient barely able to eat. Not swallow pills at times recent EGD was unremarkable. Indirect laryngoscopy unremarkable. Soft tissue CT of the neck unremarkable. November [address] tube [address] by Dr. Carranza. -Adjustment disorder with low mood Remeron 7.5 mg daily at bedtime -Duodenitis Protonix -Chronic idiopathic insomnia Melatonin 10 mg daily at bedtime -Hyperlipidemia Lipitor 40 mg daily -Hypothyroid Synthroid 88 g daily -Persistent hypotension from decreased oral intake: Better midodrine 10 mg 3 times a day. DAWN stockings.. -GERD Protonix IV ceftriaxone. Consult neurology. Different 2 feeding being started by dietitian. Aspirin Plavix.
[2021-12-20 16:55] LABS: Glucose,Whole Blood 74 mg/dL (75-99)
[2021-12-20] MEDS: CLOPIDOGREL 75 MG TAB PO SCH (17:40)
[2021-12-20 20:10] LABS: Glucose,Whole Blood 81 mg/dL (75-99)
[2021-12-20] MEDS: MELATONIN 5 MG TABLET PO SCH (22:03)
[2021-12-20] MEDS: PRAMIPEXOLE 0.25 MG TAB PO SCH (22:04)
[2021-12-21] MEDS: SODIUM CHLORIDE 0.9% 1,000 ML IV SCH (00:19)
[2021-12-21 05:50] VITALS: PULSE 80
[2021-12-21] MEDS: MIDODRINE 5 MG TAB PO SCH ×2 (05:57→12:41)
[2021-12-21] MEDS: PANTOPRAZOLE 40 MG TABLET PO SCH (05:57)
[2021-12-21] MEDS: LEVOTHYROXINE 88 MCG TAB PO SCH (05:57)
[2021-12-21 06:09] LABS: Glucose,Whole Blood 100 mg/dL (75-99)
[2021-12-21 07:51] LABS: Basophils % (A) 0 %; Eosinophils # (A) 0.2 k/uL (0-0.7); Eosinophils % (A) 3 %; HGB 8.1 gm/dL (11.4-16.0); Hypochromasia Slight; Lymphocytes # (A) 1.5 k/uL (1.0-4.8); Lymphocytes % (A) 30 %; MCH 27.5 pg (25.0-35.0); MCHC 31.1 g/dL (31.0-37.0); MCV 88.3 fL (80.0-100.0); Mean Platelet Volume 7.8; Monocytes # (A) 0.3 k/uL (0-1.0); Monocytes % (A) 7 %; Neutrophils % (A) 59 %; Platelet Count 232 k/uL (150-450); Poikilocytosis Slight; RBC 2.95 m/uL (3.80-5.40); RDW 14.9 % (11.5-15.5); WBC 5.1 k/uL (3.8-10.6)
[2021-12-21 08:19] LABS: Albumin 2.2 g/dL (3.5-5.0); Calcium 8.3 mg/dL (8.4-10.2); Total Bilirubin 0.4 mg/dL (0.2-1.3); Total Protein 4.7 g/dL (6.3-8.2)
[2021-12-21 08:58] VITALS: RESP 18; TEMP 99
[2021-12-21] MEDS: FERROUS SULFATE 325 MG TAB PO SCH (09:13)
[2021-12-21] MEDS: ATORVASTATIN 40 MG TAB PO SCH (09:13)
[2021-12-21] MEDS: MAGNESIUM OXIDE 400 MG TAB PO SCH (09:13)
[2021-12-21] MEDS: ASPIRIN 81 MG PO SCH (09:14)
[2021-12-21] MEDS: CLOPIDOGREL 75 MG TAB PO SCH (09:14)
[2021-12-21] MEDS: ACETAMINOPHEN TAB 325 MG TAB PO PRN (09:15)
--- NOTE | 2021-12-21 11:13 | P.CNNES ---
History of Present Illness Consult date: 12/21/21 Requesting physician: Ky Rivera Reason for Consult: intermittent loss of speech History of Present Illness: This is a 61-year-old woman with medical history of diabetes, hypertension, dyslipidemia, hypothyroidism, adjusted disorder, poor oral intake and has a PEG tube placed who presented regarding having trouble tolerating the tube feeding. Neurology is consulted for intermittent loss of speech. Some of the history is obtained from medical record that. Per the primary team notes it is mentioned that per the daughter she stated the patient is unable to speak on 12/19/2021. Per the nurse she has bee talking well without difficulty. Patient denies of any difficulty getting her words out or any focal weakness. Denies of any visual disturbance. Patient is on aspirin 81 mg and Lipitor 40 mg daily at home. Some of the workup in the hospital consisted of: Patient's blood pressure got as low as 86/47 in our facility with a heart rate 59, Patient's blood sugar POC is ranging in the 60s to 100. A got as low as 64 and had multiple reading in the 60s. CT of the head is reported as negative unenhanced head CT scan. MRI of the brain is reported as no MRI evidence for recent infarct. Chronic paranasal sinus disease redemonstrated. Possible new or developing right-sided mastoiditis, correlate clinically. I personally reviewed the CT of the head and I agree there is no acute subacute ischemic stroke. 2-D echo was reported as normal left ventricle systolic function. Ejection fraction of 60-65%. Left atrium is normal in size. No evidence for left atrial septal defect. Carotid duplex is reported as no hemodynamically significant stenosis in either internal carotid artery. Review of Systems Review of system: The 12 point system was reviewed and apparent positive and negative per HPI. Past Medical History Past Medical History: Diabetes Mellitus, GERD/Reflux, Hyperlipidemia, Thyroid Disorder Additional Past Medical History / Comment(s): diet controlled diabetes, hypothyroid, food feeling "stuck" in throat History of Any Multi-Drug Resistant Organisms: None Reported Past Surgical History: Hysterectomy Additional Past Surgical History / Comment(s): peg tube placed 11/2021 Past Anesthesia/Blood Transfusion Reactions: No Reported Reaction Past Psychological History: No Psychological Hx Reported Smoking Status: Former smoker Past Alcohol Use History: None Reported Past Drug Use History: None Reported - Past Family History Mother Family Medical History: Diabetes Mellitus, Hypertension Father Family Medical History: Diabetes Mellitus, Hypertension Medications and Allergies Home Medications Medication Instructions Recorded Confirmed Type Aspirin EC [Ecotrin Low Dose] 81 mg PO DAILY 10/08/21 12/19/21 History Atorvastatin [Lipitor] 40 mg PO DAILY 10/08/21 12/19/21 History Levothyroxine Sodium [Synthroid] 88 mcg PO DAILY 10/08/21 12/19/21 History Melatonin 10 mg PO HS 10/08/21 12/19/21 History Omeprazole 40 mg PO DAILY 10/08/21 12/19/21 History Natual Calm Magnesium Citrate 1 tsp PO DAILY 11/18/21 12/19/21 History Powder Acetaminophen Tab [Tylenol] 650 mg PO Q6HR PRN tab 11/26/21 12/19/21 Rx Midodrine [ProAmatine] 10 mg PO AC-TID #120 tab 11/26/21 12/19/21 Rx Pramipexole [Mirapex] 0.25 mg PO HS #30 tab 11/26/21 12/19/21 Rx Ferrous Sulfate [Iron (65 MG 325 mg PO BID 12/19/21 12/19/21 History Elemental)] Cefuroxime Axetil [Ceftin] 500 mg PO BID #6 tab 12/21/21 Rx Clopidogrel [Plavix] 75 mg PO DAILY #30 tab 12/21/21 Rx Magnesium Oxide [Mag-Ox] 400 mg PO DAILY #15 tab 12/21/21 Rx Allergies Allergy/AdvReac Type Severity Reaction Status Date / Time bee venom protein (honey bee) Allergy Unknown Verified 12/19/21 07:40 diphenhydramine Allergy Unknown Verified 12/19/21 07:40 [From Benadryl] erythromycin base Allergy Unknown Verified 12/19/21 07:40 orange Allergy Unknown Verified 12/19/21 07:40 Sulfa (Sulfonamide Allergy Unknown Verified 12/19/21 07:40 Antibiotics) sulfacetamide AdvReac Unknown Verified 12/19/21 07:40 Physical Examination - Vital Signs Vital Signs: Vital Signs Temp Pulse Resp BP Pulse Ox 12/21/21 04:00 98.6 F 80 16 114/65 97 12/21/21 02:00 82 18 12/21/21 00:00 98.7 F 82 18 118/61 98 12/20/21 20:00 98.6 F 80 16 126/58 97 12/20/21 16:00 78 18 104/65 99 12/20/21 14:00 79 18 12/20/21 12:00 59 L 18 86/47 98 Intake and Output 12/20/21 12/21/21 12/21/21 22:59 06:59 14:59 Intake Total 200 Output Total 501 Balance -301 Intake: Oral 200 Output: Urine 500 Stool 1 Other: Voiding Method Indwelling Catheter Indwelling Catheter Weight 61.235 kg GENERAL: The patient is lying in bed and is not in acute distress. Patient appears cachectic. CHEST: The heart rate is regular rate rhythm. No murmurs to auscultation. No carotid bruit bilaterally. LUNG: Clear to auscultation bilaterally no wheezing noted throughout. Not labored breathing. ABDOMEN/GI: Bowel sounds present in all 4 quadrants. No tenderness to palpation throughout. NEUROLOGICAL: Higher mental function: The patient is awake, alert, oriented to self, place. She correctly states the current month but state the current year is 1921. Patient is following commands. No aphasia and no neglect. Cranial nerves: The pupils are round, equal and reactive to light and accommodation. Visual sanchez are full to confrontation throughout. Extraocular movement is intact no nystagmus is noted. Facial sensation is normal to touch throughout. The facial strength is normal throughout. Hearing is normal b ilaterally to hand rub. Tongue is midline and moved [id number] without any difficulty. No dysarthria is noted. Shoulder shrug is normal bilaterally. Motor: The strength is lifting all extremities above gravity without focality. Normal tone and bulk. Cerebellum: Normal finger to nose heel to park bilaterally. Sensation: Sensation is normal to touch throughout. Reflexes (right/left): 1+ throughout.. Plantars are downgoing bilaterally. Results - Laboratory Findings CBC and BMP: 12/21/21 07:06 12/21/21 07:06 Abnormal Lab Findings: Abnormal Labs 12/18/21 12/18/21 12/18/21 23:31 23:31 23:31 RBC 3.05 L Hgb 8.5 L Hct 26.4 L Sodium 133 L Potassium 3.3 L POC Glucose (mg/dL) Calcium Magnesium 1.0 L Troponin I Total Protein 4.8 L Albumin 2.4 L Procalcitonin Urine Protein Trace H 12/18/21 12/19/21 12/19/21 23:31 07:00 11:42 RBC Hgb Hct Sodium Potassium POC Glucose (mg/dL) 67 L Calcium Magnesium 1.3 L Troponin I 0.091 H* Total Protein Albumin Procalcitonin Urine Protein 12/19/21 12/19/21 12/20/21 12:08 16:30 06:03 RBC Hgb Hct Sodium Potassium POC Glucose (mg/dL) 68 L 100 H 64 L Calcium Magnesium Troponin I Total Protein Albumin Procalcitonin Urine Protein 12/20/21 12/20/21 12/20/21 06:51 07:08 08:26 RBC Hgb Hct Sodium Potassium POC Glucose (mg/dL) 68 L 67 L Calcium Magnesium Troponin I Total Protein Albumin Procalcitonin 0.51 H Urine Protein 12/20/21 12/20/21 12/20/21 08:26 11:44 12:00 RBC Hgb Hct Sodium 134 L Potassium 2.9 L POC Glucose (mg/dL) 64 L 68 L Calcium 8.2 L Magnesium Troponin I Total Protein Albumin Procalcitonin Urine Protein 12/20/21 12/20/21 12/20/21 12:23 12:40 12:54 RBC Hgb Hct Sodium Potassium POC Glucose (mg/dL) 64 L 68 L 74 L Calcium Magnesium Troponin I Total Protein Albumin Procalcitonin Urine Protein 12/20/21 12/20/21 12/21/21 13:39 16:52 06:07 RBC Hgb Hct Sodium Potassium POC Glucose (mg/dL) 70 L 74 L 100 H Calcium Magnesium Troponin I Total Protein Albumin Procalcitonin Urine Protein 12/21/21 07:06 RBC 2.95 L Hgb 8.1 L Hct 26.0 L Sodium Potassium POC Glucose (mg/dL) Calcium Magnesium Troponin I Total Protein Albumin Procalcitonin Urine Protein Assessment and Plan Assessment: Questionable reported speech difficulty but on examination appears normal and no focality on examination: MRI Brain is negative for acute or subacute stroke. Possibly related to do the patient's hypoglycemia as well as in the low 60s Hypoglycemia Episode of hypotensive Diabetes mellitus Dyslipidemia Hypothyroidism Adjustment disorder Poor oral intake status post PEG tube Plan: Patient had MRI of the brain, carotid duplex and 2-D echo which were negative for stroke. She is on home medication of aspirin 81 mg daily, in addition it seems that the patient was started on Plavix during this hospital stay. From a neurological perspective the patient does not need to be on dual antiplatelets as the patient does not have a stroke or TIA. Continue the patient's home medication of Lipitor 40 mg daily. Continue neuro checks Patient is on Midodrine for hypotensive episode. Recommend avoiding further hypoglycemia and hypotensive episode will defer the management to the primary team PT and OT are consulted Consulted speech therapy We'll defer the rest of the medical management to the primary team No additional work-up needed from neurological perspective. The plan is discussed with patient and her nurse. Thank you for the consultation. Abel Pryor M.D. Neuro-Hospitalist Time with Patient: Greater than 30
[2021-12-21 11:54] LABS: Glucose,Whole Blood 95 mg/dL (75-99)
[2021-12-21 12:15] VITALS: BMI 23.1
[2021-12-21 15:08] VITALS: BP 106/72
--- NOTE | 2021-12-21 15:48 | P.DS ---
Providers Date of admission: 12/19/21 00:50 Expected date of discharge: 12/21/21 Attending physician: Ky Rivera Consults: 12/20/21 15:23 Consult Physician Routine Consulting Provider: Abel Pryor Consult Reason/Comments: Intermittent loss of speech Do you want consulting provider notified?: Yes Primary care physician: Arvin Ashley [facility] Hospital Course: Chief Complaint: Could not talk This is a pleasant 61-year-old patient, follows with Dr. Ashley. Chronic stable medical conditions include diabetes, GERD, hypertension dyslipidemia, hypothyroid, diet-controlled diabetes. Adjustment disorder. Because of presbyesophagus, poor oral intake patient had a PEG tube placed on November [address] Carranza. Patient now presents having some trouble tolerating the tube feeding. Had to change it to feeding and patient using Ensure Plus last few days that she's been tolerating. Patient did have one bout of vomiting. Patient felt she was unable to speak today. Could not talk. Daughter thought so fine. Denied any trouble swallowing as she does take liquids. No weakness in the office. No headache. No double vision. December 20: Getting 2 feeding. Going for MRI this afternoon. Carotid unremarkable. 2 feeding was held last night. Because of vomiting. Different formula being started by dietitian today. December 21: MRI negative. Seen by neurology. Baby speech was related to hypoglycemia. Tolerating new 2 feeding. Changed over to Vital 1.2 at 50 mL an hour. Cleared by neurology. Discussion and discharge planning more than 35 minutes Past medical history to include: Diabetes, GERD, hyperlipidemia, hypothyroid, presbyesophagus, feeding tube Social history: Lives with . Did smoke in the past. No alcohol. Family history: Diabetes and hypertension Physical examination: VITAL SIGNS: 99, 79, 18, 106/72, 98% on 2 L GENERAL: , laying in bed, awake, tired. EYES: Pupils equal. Conjunctiva normal. HEENT: External appearance of nose and ears normal, oral cavity dry mucous membranes. NECK: JVD not raised; masses not palpable. HEART: First and second heart sounds are normal; no edema. LUNGS: Respiratory rate normal; clear to auscultation. ABDOMEN: Soft, nontender, liver spleen not palpable, no masses palpable. PEG tube PSYCH: Alert and oriented x3; mood and affect tiredl. MUSCULOSKELETAL:No Clubbing/cyanosis;muscles-grossly intact. OA NEUROLOGICAL: Cranial nerves grossly intact; no facial asymmetry, power and sensation grossly intact. Speech normal. INVESTIGATIONS, reviewed in the clinical context: MRI brain: Negative for infarct December 21: White count 5.1 hemoglobin 8.1 platelets 232 creatinine 0.84 Carotid Doppler: No symptoms stenosis 2-D echo: EF 60-65% White count 8.6 hemoglobin 8.5 platelets 2:30 sodium 133 potassium 3.3 creatinine 0.86 Troponin I 0.091 UA: Unremarkable EKG tracing personally reviewed by me-normal sinus rhythm. Nonspecific ST-T wave changes. Rate 98 Chest x-ray film personally reviewed by me-venous prominence/infiltrate Assessment and plan: -Hypoglycemia likely causing changes speech.. Continue aspirin. Plavix Computed tomography scan brain without contrast. MRI negative.. Patient seen by Dr. Pryor from neurology. -Possible right lower lobe pneumonia. Suspect gram-negative organism. IV ceftriaxone. Complete 3 more days of Ceftin -Possible acute congestive heart failure exacerbation from diastolic dysfunction EF 60-65%. Stop sodium tablets. 2-D echocardiogram. 1 dose of IV Lasix 20 mg. -Severe dysphagia secondary to presbyesophagus diagnosed recently by barium swallow. Patient barely able to eat. Not swallow pills at times recent EGD was unremarkable. Indirect laryngoscopy unremarkable. Soft tissue CT of the neck unremarkable. November 22 PEG tube placed by Dr. Carranza. -Adjustment disorder with low mood Remeron 7.5 mg daily at bedtime -Duodenitis Protonix -Chronic idiopathic insomnia Melatonin 10 mg daily at bedtime -Hyperlipidemia Lipitor 40 mg daily -Hypothyroid Synthroid 88 g daily -Persistent hypotension from decreased oral intake: midodrine 10 mg 3 times a day. -GERD Protonix -PEG tube feeding. Changed to Vital 1.2 at 50 mL an hour Disposition: Home with family Plan - Discharge Summary New Discharge Prescriptions: New Cefuroxime Axetil [Ceftin] 500 mg PO BID #6 tab Magnesium Oxide [Mag-Ox] 400 mg PO DAILY #15 tab Clopidogrel [Plavix] 75 mg PO DAILY #30 tab Continue Atorvastatin [Lipitor] 40 mg PO DAILY Aspirin EC [Ecotrin Low Dose] 81 mg PO DAILY Natual Calm Magnesium Citrate Powder 1 tsp PO DAILY Midodrine [ProAmatine] 10 mg PO AC-TID #120 tab Acetaminophen Tab [Tylenol] 650 mg PO Q6HR PRN tab PRN Reason: Mild Pain Or Fever > 100.5 Ferrous Sulfate [Iron (65 MG Elemental)] 325 mg PO BID Melatonin 10 mg PO HS Omeprazole 40 mg PO DAILY Levothyroxine Sodium [Synthroid] 88 mcg PO DAILY Pramipexole [Mirapex] 0.25 mg PO HS #30 tab Discontinued Sodium Chloride Tab 2 gm PO QID #120 tab Discharge Medication List Aspirin EC [Ecotrin Low Dose] 81 mg PO DAILY 10/08/21 [History] Atorvastatin [Lipitor] 40 mg PO DAILY 10/08/21 [History] Levothyroxine Sodium [Synthroid] 88 mcg PO DAILY 10/08/21 [History] Melatonin 10 mg PO HS 10/08/21 [History] Omeprazole 40 mg PO DAILY 10/08/21 [History] Natual Calm Magnesium Citrate Powder 1 tsp PO DAILY 11/18/21 [History] Acetaminophen Tab [Tylenol] 650 mg PO Q6HR PRN tab 11/26/21 [Rx] Midodrine [ProAmatine] 10 mg PO AC-TID #120 tab 11/26/21 [Rx] Pramipexole [Mirapex] 0.25 mg PO HS #30 tab 11/26/21 [Rx] Ferrous Sulfate [Iron (65 MG Elemental)] 325 mg PO BID 12/19/21 [History] Cefuroxime Axetil [Ceftin] 500 mg PO BID #6 tab 12/21/21 [Rx] Clopidogrel [Plavix] 75 mg PO DAILY #30 tab 12/21/21 [Rx] Magnesium Oxide [Mag-Ox] 400 mg PO DAILY #15 tab 12/21/21 [Rx] Follow up Appointment(s)/Referral(s): [facility], [NON-STAFF] - (Homecare will contact you to set up a time to come out. ) Arvin Ashley MD [Primary Care Provider] - 12/23/21 11:30 am Shreyas Lima MD [Medical Doctor] - 2 Weeks (Please call to make a follow-up appointment.) Activity/Diet/Wound Care/Special Instructions: Home Infusion for Tube Feeding and Supplies - Option [facility] [phone]
== END 2021-12-21 18:01 | disposition home health service (06) | DRG 637 ==
LOC: EC 22:02 → 3SCARD 12-19 00:50
PROVIDERS: ADMIT Hospitalist; ATTEND Hospitalist
DX: E11.649 Type 2 diabetes mellitus with hypoglycemia without coma (principal); J15.6 Pneumonia due to other Gram-negative bacteria; I50.33 Acute on chronic diastolic (congestive) heart failure; Z43.1 Encounter for attention to gastrostomy; I11.0 Hypertensive heart disease with heart failure; I95.9 Hypotension, unspecified; K22.89 Other specified disease of esophagus; R13.10 Dysphagia, unspecified; F43.21 Adjustment disorder with depressed mood; K21.9 Gastro-esophageal reflux disease without esophagitis; E78.5 Hyperlipidemia, unspecified; E03.9 Hypothyroidism, unspecified; K29.80 Duodenitis without bleeding; F51.01 Primary insomnia; R77.8 Other specified abnormalities of plasma proteins; Z79.82 Long term (current) use of aspirin; Z79.890 Hormone replacement therapy; Z79.899 Other long term (current) drug therapy; Z90.710 Acquired absence of both cervix and uterus; Z87.19 Personal history of other diseases of the digestive system; Z87.891 Personal history of nicotine dependence; Z98.890 Other specified postprocedural states; Z88.1 Allergy status to other antibiotic agents; Z91.030 Bee allergy status; Z88.2 Allergy status to sulfonamides; Z88.8 Allergy status to other drugs, medicaments and biological substances; Z91.018 Allergy to other foods; Z83.3 Family history of diabetes mellitus; Z82.49 Family history of ischemic heart disease and other diseases of the circulatory system
CPT/HCPCS: 36415; 70450; 70551; 71045; 80048; 80053; 81003; 83605; 83735; 83880; 84145; 84484; 85025; 87040; 93005; 93306; 93880; 99285